=== PATIENT | female | born 1945 | race Caucasian/White ===

== ENCOUNTER 2016-08-12 21:22 | Emergency (ER) | payer MEDICARE, OTHER ==
[~2016-08-12] VITALS: Ht 160 cm; Wt 64.4 kg
[2016-08-12 21:32] VITALS: BP 157/92
== END 2016-08-12 22:18 | disposition home or self-care (01) ==
LOC: ER 21:28
DX: S91.332A Puncture wound without foreign body, left foot, initial encounter (principal); I10 Essential (primary) hypertension; M35.9 Systemic involvement of connective tissue, unspecified; Z88.0 Allergy status to penicillin; Z98.890 Other specified postprocedural states; W22.8XXA Striking against or struck by other objects, initial encounter; Y93.89 Activity, other specified; Y92.89 Other specified places as the place of occurrence of the external cause; Y99.8 Other external cause status
CPT/HCPCS: 99283; A4606; A6402; Z7610

== ENCOUNTER 2021-03-23 13:33 | Inpatient (IN) | payer MEDICARE, OTHER ==
[~2021-03-23] VITALS: Ht 162.6 cm; Wt 59.9 kg
--- NOTE | 2021-03-23 13:33 | NUR ---
[facility] FROM [facility] C/O NEW ONSET AFIB 136 HR. PT STATED SHE HAS HAD HEART PALPITATION SINCE LAST NIGHT. DENIES NAUSEA AND VOMITING. PT HEART RATE IS ELEVATED, MD AWARE. PT ATTACHED TO MONITOR. BREATHING IS EVEN AND UNLABORED.
--- NOTE | 2021-03-23 13:39 | NUR ---
IV ESTABLISH L AC 20G, LABS WERE DRAWN AND COLLECTED. TECH AT BEDSIDE FOR EKG.
[2021-03-23 13:55] LABS: BASOPHILS % (AUTO) 0.1 % (0.0-2.0); EOSINOPHILS % (AUTO) 0.2 % (0.0-6.0); HEMATOCRIT 30 % (33-45); LYMPHOCYTES # (AUTO) 0.8 K/uL (0.8-4.8); LYMPHOCYTES % (AUTO) 12.7 % (20.0-44.0); MEAN CORPUSCULAR HGB CONC 30 g/dl (31.0-36.0); MEAN CORPUSCULAR VOLUME 86 fL (82-100); MONOCYTES # (AUTO) 0.4 K/uL (0.1-1.30); MONOCYTES % (AUTO) 6.5 % (2.0-12.0); NEUTROPHILS # (AUTO) 5.3 K/uL (1.8-8.9); NEUTROPHILS % (AUTO) 80.5 % (43.0-81.0); PLATELET COUNT (AUTO) 287 K/uL (150-450); RED BLOOD CELL COUNT(AUTO) 3.48 MIL/uL (4.0-5.2); WHITE BLOOD COUNT (AUTO) 6.5 K/uL (4.3-11.0)
[2021-03-23 14:02] LABS: CALCIUM, SERUM 8.1 mg/dL (8.5-10.1); CARBON DIOXIDE 19 mmol/L (21-32); CHLORIDE 95 mmol/L (98-107); CREATININE 5.3 mg/dL (0.6-1.3); GLUCOSE 123 mg/dL (74-106); POTASSIUM 6.1 mmol/L (3.5-5.1); SODIUM SERUM 130 mmol/L (136-145); UREA NITROGEN, BLOOD 71 mg/dL (7-18)
[2021-03-23 14:08] LABS: ALANINE AMINOTRANSFERASE 29 U/L (12-78); ALBUMIN 3.2 g/dL (3.4-5.0); ALKALINE PHOSPHATASE 145 U/L (46-116); ASPARTATE AMINOTRANSFERASE 26 U/L (15-37); BILIRUBIN,DIRECT 0.2 mg/dL (0.0-0.2); BILIRUBIN,TOTAL 0.4 mg/dL (0.2-1.0); TOTAL PROTEIN, SERUM 6.2 g/dL (6.4-8.2)
[2021-03-23] MEDS ORDERED: APIX2.5T PO (14:39)
[2021-03-23] MEDS ORDERED: NITR0.4T SL (14:39)
[2021-03-23] MEDS ORDERED: DOCU-141 PO (14:39)
[2021-03-23] MEDS ORDERED: ZOLP5TAB8 PO (14:39)
[2021-03-23] MEDS ORDERED: ACET325T53 PO (14:39)
[2021-03-23] MEDS ORDERED: FAMO-131 PO (14:39)
[2021-03-23] MEDS ORDERED: AMLO5TAB4 PO (14:39)
[2021-03-23] MEDS ORDERED: GABA-532 PO (14:39)
[2021-03-23] MEDS ORDERED: LEVA0.6320 IH (14:39)
[2021-03-23] MEDS ORDERED: CALCIUM CHLORIDE 1,000 MG/10 ML DISP.SYRIN ONE (14:49)
--- NOTE | 2021-03-23 14:50 | NUR ---
MOVE SHEET SUBMITTED AND CALLED FOR BED.
--- NOTE | 2021-03-23 14:57 | NUR ---
COVID ANTIGEN SWAB DONE AND SENT TO THE LAB
[2021-03-23] MEDS ORDERED: CALCIUM CHLORIDE 1,000 MG/10 ML DISP.SYRIN IV ONE (15:00)
[2021-03-23] MEDS ORDERED: ALBUTEROL FS 2.5 MG/3 ML VIAL.NEB NEB ONE (15:00)
--- NOTE | 2021-03-23 15:09 | NUR ---
RESPIRATORY AT BEDSIDE
[2021-03-23] MEDS ORDERED: ALBUTEROL FS 2.5 MG/3 ML VIAL.NEB ONE (15:11)
[2021-03-23 15:27] LABS: ALANINE AMINOTRANSFERASE 28 U/L (12-78); ALBUMIN 3.1 g/dL (3.4-5.0); ALKALINE PHOSPHATASE 141 U/L (46-116); ASPARTATE AMINOTRANSFERASE 20 U/L (15-37); BILIRUBIN,DIRECT 0.1 mg/dL (0.0-0.2); BILIRUBIN,TOTAL 0.3 mg/dL (0.2-1.0); TOTAL PROTEIN, SERUM 6.2 g/dL (6.4-8.2)
--- NOTE | 2021-03-23 15:44 | NUR ---
PT RESTING COMFORTABLY IN BED, EASY TO AROUSE.
--- NOTE | 2021-03-23 16:23 | NUR ---
[facility] CALLED MANAGER LONG TERM CARE PAGED.
--- NOTE | 2021-03-23 16:39 | NUR ---
ASSIGNED TO 120-1
--- NOTE | 2021-03-23 16:49 | NUR ---
REPORT GIVEN TO ROSANNA FOR SARA
--- NOTE | 2021-03-23 17:08 | NUR ---
[facility] CALLED AUTOMOBILE DAMAGE FIELD APPRAISER PAGED.
--- NOTE | 2021-03-23 17:24 | NUR ---
DENISHA IS SON [phone]
[2021-03-23] MEDS ORDERED: LEVALBUTEROL HCL NEB 1.25 MG/0.5 ML VIAL.NEB NEB PRN (18:00)
[2021-03-23] MEDS ORDERED: ACETAMINOPHEN 325 MG TABLET PO PRN (18:00)
[2021-03-23] MEDS ORDERED: NITROGLYCERIN 0.4 MG/TAB BOTTLE SL PRN (18:00)
[2021-03-23] MEDS ORDERED: Z GUARD REMEDY 2 OZ OINT TP PRN (18:00)
--- NOTE | 2021-03-23 18:04 | NUR ---
RN NOTE RECEIVE REPORT FROM ED NURSE. PATIENT IN STABLE CONDITION AT TIME OF TRANSPORT. PATIENT AMBULATE TO BED WITH WALKER. A/O X4. ON 2L OF OXYGEN VIA NC. WILL CONTINUE TO MONITOR.
[2021-03-23] MEDS ORDERED: AMIODARONE 450 MG in IV D5W 241 ML IV PRN (18:30)
[2021-03-23] MEDS ORDERED: AMIODARONE 150 MG in IV D5W 100 ML IV ONE ×2 (18:30→19:30)
--- NOTE | 2021-03-23 19:26 | NUR ---
RN NOTE VITAL SIGNS AT TIME OF TRANSFER: TEMP 96.8, BP 114/78, HR 151, 02 97%, RR 20
--- NOTE | 2021-03-23 19:30 | NUR ---
INFO ANALYST OPENING NOTES: RECEIVED PATIENT FROM DAY SHIFT, PATIENT IN BED, A/O X4, L. AC #20 PATENT AND INTACT, ON NC 2L, TELE MONITOR SHOWS SVT AND A. FIB, 140S, NO SIGNS OF SOB, NO DISTRESS NOTED, TELE MONITOR SHOWS NSR, BED AT LOWEST POSITION, LOCKED AND IN PLACE, SIDE RAILS UP X2, CALL LIGHT WITHIN REACH. WILL CONTINUE TO MONITOR AND ADMINISTER NURSING INTERVENTIONS NECESSARY.
--- NOTE | 2021-03-23 19:52 | NUR ---
RN CLOSING NOTE PATIENT IN STABLE CONDITION WITH NO SIGN OF DISTRESS. HR 138. AMIODORON DRIP WAS STARTED. ON FARMWORKER RICE. PATIENT AMBULATE. ALL SAFETY MEASURE IN PLACE. BED ON LOWEST POSITION WITH HOB ELEVATED. AND 2 SIDE RAIL UP. CALL LIGHT WITHIN REACH. REPORT WAS GIVEN TO LITHOGRAPH OPERATOR NURSE.
[2021-03-23 20:00] VITALS: BP 119/74
[2021-03-23] MEDS: FAMOTIDINE (20 MG) 20 MG TABLET PO SCH (21:58)
--- NOTE | 2021-03-23 22:01 | NUR ---
SOLAR MANUFACTURER'S REPRESENTATIVE NOTES: PATIENT REFUSES PEPCID 0.5 TAB
[2021-03-24] VITALS: BP 93/60
[2021-03-24] MEDS: ONDANSETRON HCL/PF 4 MG/2 ML VIAL IVP PRN (01:03)
[2021-03-24 04:00] VITALS: BP 96/45
--- NOTE | 2021-03-24 06:41 | NUR ---
BORING MILL OPERATOR CLOSING NOTES: PATIENT IN BED, A/O X4, L. AC #20 PATENT AND INTACT, ON 3L NC, SATURATING 100%, NO SIGNS OF DISTRESS, NO SOB, BED AT LOWEST POSITION, BRAKES LOCKED AND IN PLACE, SIDE RAILS UP X2, CALL LIGHT WITHIN REACH. WILL CONTINUE TO MONITOR AND ENDORSE TO DAY SHIFT NURSE.
[2021-03-24] MEDS: ALBUMIN 25% 25 GM in PREMIX 1 EA IV PRN ×2 (07:00→07:01)
[2021-03-24 08:00] VITALS: BP 110/40
--- NOTE | 2021-03-24 08:03 | NUR ---
RN OPENING NOTE RECEIVE REPORT FROM TYPING BOOKKEEPER NURSE. PATIENT IN STABLE CONDITION WITH NO SIGN OF DISTRESS AT TIME OF REPORT. PATIENT IS ON 3L OF OXYGEN VIA NC. O2 SAT OF 98%. CURRENTLY RECEIVING HEMODIALYSIS. ON AMIODARONE AT 0.5MG/MIN. BP 110/59 HR 129. WILL FOLLOW UP MORNING LAB AND DR. NORMAN. PROPER ISOLATION PRECAUTION IN PLACE. ALL SAFETY MEASURE IN PLACE. BED ON LOWEST POSITION WITH HOB ELEVATED. CALL LIGHT WITHIN REACH. WILL CONTINUE TO MONITOR.
[2021-03-24] MEDS: AMLODIPINE BESYLATE 5 MG TABLET PO SCH (08:57)
--- NOTE | 2021-03-24 08:58 | NUR ---
RN NOTE DID NOT GIVE AMLODIPINE. BP 110/40 HR 130. PATIENT IS ON HEMODIALYSIS AND AMIODARONE DRIP.
[2021-03-24] MEDS: APIXABAN 2.5 MG TABLET PO SCH ×2 (09:04→16:56)
[2021-03-24] MEDS: GABAPENTIN 100 MG CAPSULE PO SCH (09:04)
[2021-03-24 12:00] VITALS: BP 104/73
[2021-03-24] MEDS: DILTIAZEM HCL CD 120 MG PO SCH (14:00)
[2021-03-24 15:07] LABS: BASOPHILS % (AUTO) 0.4 % (0.0-2.0); EOSINOPHILS % (AUTO) 0.1 % (0.0-6.0); HEMATOCRIT 26 % (33-45); HEMOGLOBIN 8.3 g/dL (11.5-14.8); LYMPHOCYTES # (AUTO) 0.8 K/uL (0.8-4.8); LYMPHOCYTES % (AUTO) 11.9 % (20.0-44.0); MEAN CORPUSCULAR HGB CONC 32 g/dl (31.0-36.0); MEAN CORPUSCULAR VOLUME 84 fL (82-100); MONOCYTES # (AUTO) 0.5 K/uL (0.1-1.30); MONOCYTES % (AUTO) 6.9 % (2.0-12.0); NEUTROPHILS # (AUTO) 5.6 K/uL (1.8-8.9); NEUTROPHILS % (AUTO) 80.7 % (43.0-81.0); PLATELET COUNT (AUTO) 176 K/uL (150-450); RED BLOOD CELL COUNT(AUTO) 3.15 MIL/uL (4.0-5.2); WHITE BLOOD COUNT (AUTO) 6.9 K/uL (4.3-11.0)
[2021-03-24] MEDS ORDERED: MIDODRINE HCL (5MG) 5 MG TABLET PO SCH (15:30)
[2021-03-24 15:41] LABS: CHOLESTEROL 110 mg/dL (<200); HDL CHOLESTEROL 50 mg/dL (40-60); LDL 54 mg/dL (0-99); TRIGLYCERIDES 44 mg/dL (30-150)
[2021-03-24 16:00] VITALS: BP 92/66
--- NOTE | 2021-03-24 18:28 | NUR ---
RN CLOSING NOTE PATIENT REMAIN IN STABLE CONDITION THROUGH OUT SHIFT. RECEIVING OXYGEN VIA NC AT 2L/MIN WITH O2 SAT OF 98% AND ABOVE. RECEIVE HEMODIALYSIS THIS MORNING WITH 2L TOKEN OUT. AMIODARONE DRIP PROTOCOL HAVE BEEN COMPLETED. HR REMAIN IN 130S. PO MEDICATIONS POST AMIODARONE DRIP WAS ORDERED BY DR. WILMA MCIHAEL. PATIENT CONSUME LESS THAN 25 OF DAILY MEALS. DILTIAZEM WAS NOT GIVEN DUE TO SBP <100. PROPER ISOLATION PRECAUTION PROTOCOL IN PLACE. ALL SAFETY MEASURE IN PLACE. BED ON LOWEST POSITION WITH HOB ELEVATED. WITH 3 SIDE RAIL UP. BED ALARM ON. CALL LIGHT WITHIN REACH. WILL CONTINUE TO MONITOR AND GIVE REPORT TO SKIVER OPERATOR NURSE.
--- NOTE | 2021-03-24 18:32 | NUR ---
RN NOTE CHEMISTRY RESULT PENDING. UNABLE TO GET RESULTS
--- NOTE | 2021-03-24 19:30 | NUR ---
CHILD AND FAMILY SERVICES SPECIALIST OPENING NOTES: RECEIVED PATIENT FROM DAY SHIFT, A/O X4, L. AC #20 PATENT AND INTACT, HD CATCH @ CHEST WALL, TELE MONITOR SHOWS NSR AND SINUS TACHY, PATIENT ON NC 3L, SATURATING 100%, NO SIGNS OF SOB, NO DISTRESS NOTED, BED AT LOWEST POSITION, BRAKES LOCKED AND IN POSITION, SIDE RAILS UP X2, CALL LIGHT WITHIN REACH. WILL CONTINUE TO MONITOR AND ADMINISTER NURSING INTERVENTIONS NECESSARY.
[2021-03-24 20:00] VITALS: BP 89/58
[2021-03-24] MEDS: AMIODARONE HCL 200 MG TABLET PO SCH (21:08)
[2021-03-24] MEDS: FAMOTIDINE (20 MG) 20 MG TABLET PO SCH (21:08)
[2021-03-24 22:16] LABS: CALCIUM, SERUM 7.5 mg/dL (8.5-10.1); CARBON DIOXIDE 20 mmol/L (21-32); CHLORIDE 96 mmol/L (98-107); CREATININE 4.4 mg/dL (0.6-1.3); GLUCOSE 128 mg/dL (74-106); POTASSIUM 5.5 mmol/L (3.5-5.1); SODIUM SERUM 133 mmol/L (136-145); UREA NITROGEN, BLOOD 50 mg/dL (7-18)
[2021-03-24 22:28] LABS: ALBUMIN 3.3 g/dL (3.4-5.0); ALKALINE PHOSPHATASE 122 U/L (46-116); BILIRUBIN,TOTAL 0.6 mg/dL (0.2-1.0); MAGNESIUM 2.3 mg/dL (1.8-2.4); PHOSPHORUS 6.4 mg/dL (2.5-4.9); TOTAL PROTEIN, SERUM 5.8 g/dL (6.4-8.2)
[2021-03-24 22:42] LABS: ALANINE AMINOTRANSFERASE 1261 U/L (12-78); ASPARTATE AMINOTRANSFERASE 1958 U/L (15-37)
[2021-03-25] VITALS: BP 103/68
[2021-03-25 04:00] VITALS: BP 86/56
--- NOTE | 2021-03-25 06:42 | NUR ---
CARBOY FILLER CLOSING NOTES: PATIENT IN BED, A/O X4, TELE MONITOR SHOWS SR, SINUS TACHY, L. AC #20, PATENT AND INTACT, ON 3L NC, NO SIGNS OF SOB, NO DISTRESS NOTED, BED AT LOWEST POSITION, BRAKES LOCKED AND IN PLACE, SIDE RAILS UP X2, CALL LIGHT WITHIN REACH, WILL CONTINUE TO MONITOR AND ENDORSE TO DAY SHIFT NURSE.
[2021-03-25 08:00] VITALS: BP 86/56
[2021-03-25] MEDS: AMLODIPINE BESYLATE 5 MG TABLET PO SCH (09:00)
[2021-03-25] MEDS: AMIODARONE HCL 200 MG TABLET PO SCH (09:15)
[2021-03-25] MEDS: GABAPENTIN 100 MG CAPSULE PO SCH (10:08)
[2021-03-25] MEDS: DILTIAZEM HCL CD 120 MG PO SCH (10:08)
[2021-03-25] MEDS: APIXABAN 2.5 MG TABLET PO SCH ×2 (10:10→17:24)
[2021-03-25 12:00] VITALS: BP 80/56
[2021-03-25] MEDS: MIDODRINE HCL (5MG) 5 MG TABLET PO SCH ×2 (13:52→17:16)
--- NOTE | 2021-03-25 15:31 | NUR ---
RN NOTE 30 MINS PRIOR DIALYSIS AT AROUND 1305 , PT WAS GIVEN PRN MIDODRINE 5MG . HD RN STARTED 1330, PT REMAINS HYPOTENSIVE. NOT IN DISTRESS, NO COMPLAINTS OF CHEST PAIN. PT SINUS TACHY 120. HD WAS STOPPED AT 1315. WILL CONTINUE TO MONITOR.
[2021-03-25 16:00] VITALS: BP 96/50
[2021-03-25] MEDS ORDERED: AMIODARONE HCL 200 MG TABLET PO SCH (18:00)
--- NOTE | 2021-03-25 19:30 | NUR ---
RN OPENING NOTE RECEIVED PATIENT IN BED. A/OX3. ON OXTGEN 3L/MIN VIA NASAL CANNULA. RESPIRATIONS ARE EVEN AND UNLABORED. NO S/ SOB NOTED. NO C/O PAIN AT THIS TIME. TELE MONITOR READS A FLUTTER HR 90S. IN NO APPARENT DISTRESS. IV ACCESS IN LAC#20 LEAKING, RIGHT CHEST WALL HD CATH INTACT. BED IS LOW AND LOCKED, HOB ELEVATED IN SEMI FOWLERS, SIDE RAILS UP X2, CALL LIGHT WITHIN REACH.
--- NOTE | 2021-03-25 19:32 | NUR ---
RN NOTE PT IS NOTED WITH A FLUTTER >100 HR. NO COMPLAINTS OF CHEST PAIN AND SOB, DIZZINESS HEADACHE. AMIODARONE 400MG PO GIVEN. WILL CONTINUE TO MONITOR AND ENDORSED TO NEXT SHIFT RN. BP-95/50.
[2021-03-25 20:00] VITALS: BP 112/46
[2021-03-25] MEDS: FAMOTIDINE (20 MG) 20 MG TABLET PO SCH (21:50)
--- NOTE | 2021-03-25 23:00 | NUR ---
RN NOTE WORK ORDER FOR ROOM AC/HEATING UNIT. ROOM IS VERY COLD CALLED ENGINEERING. NO ANSWER.
[2021-03-25] MEDS: ONDANSETRON HCL/PF 4 MG/2 ML VIAL IVP PRN (23:05)
[2021-03-26] VITALS (47 sets, daily range): BP systolic 69–125; BP diastolic 19–92
--- NOTE | 2021-03-26 01:30 | NUR ---
RN NOTE DERRICK MAN IN ROOM, TRIED TO FIX AC/HEATER. ROOM STILL VERY COLD
--- NOTE | 2021-03-26 03:27 | NUR ---
RN NOTE INFORMED TRAVELING ENGINEER ALIX PERSON NP THAT I RECEIVED PATIENT A FLUTTER HR 90S. PATIENT WAS GIVEN AMINO 400MG TAB AT 1900. AT 2200 HER HR WAS IN THE 50S. AND OF 0100 HER HR HAS SUSTAINED IN THE 40S. RECEIVED ORDER TO HAVE NEXT SHIFT DISCUSS WITH LAST PATTERN GRADER PRIOR TO ADMINISTERING NEXT AMINO DOSE. WILL ENDORSE TO NEXT SHIFT.
[2021-03-26] MEDS ORDERED: IV NS 0.9% 500 ML IV ONE ×5 (04:00→06:00)
--- NOTE | 2021-03-26 04:05 | NUR ---
RT STAT EKG PERFORMED. RESULTS GIVEN TO DIABETES EDUCATOR SHYLA
--- NOTE | 2021-03-26 04:05 | NUR ---
RN NOTE RAZA TAKER DOWN INFORMED OF EKG RESULTS, NS 500 BOLUS IS CURRENTLY RUNNING PER JESSICA ORDER. BP WAS 81/49, 79/44.
--- NOTE | 2021-03-26 04:45 | NUR ---
RN NOTE INFORMED RAZA MANUGRAPHER POST 500CC BOLUS COLT 82/42 HR 40. RECEIVED ORDER FOR ANOTHER 500CC BOLUS NS. ORDER BEING CARRIED OUT.
--- NOTE | 2021-03-26 05:31 | NUR ---
RN NOTE INFORMED RAZA BP 85/45 HR 44. RECEIVED ORDER FOR ANOTHER 500CC BOLUS NS. ORDER BEING CARRIED OUT.
--- NOTE | 2021-03-26 06:12 | NUR ---
RN NOTE RAZA INFORMED OF NEW VITALS AFTER 3RD 500CC NS BOLUS. 93/53 HR 57. NO NEW ORDERS RECEIVED.
--- NOTE | 2021-03-26 07:29 | NUR ---
RN NOTE PATIENT OBSERVE AWAKE IN BED, ON O2 VIA NC @ 6LPM O2 SAT OF 98% TOLERATING WELL, BREATHING EVEN AND UNLABORED, ON RENAL DIET, WITH HD CATH NOTED ON RIGHT CHEST, WITH LEFT HAND GAUGE 22 AND RIGHT FORE ARM G 22, ON BAIRHUGGER ON HIGH FOR HYPOTHERMIA PATIENT TOLERATING WELL AND COMFORTABLE. SAFETY MEASURE OBSERVED, BED WHEELS LOCK, CALL LIGHT WITHIN REACH, WILL CONTINUE TO MONITOR.
--- NOTE | 2021-03-26 07:30 | NUR ---
RN CLOSING NOTE PATIENT RESTING IN BED. A/OX3. ON OXYGEN 6L/MIN VIA NASAL CANNULA D/T PATIENT STATES SHE CANT BREATH. O2 SAT IS WNL 100 BUT INCREASED. NO C/O PAIN BUT DOES STATE SHE FEELS DIZZY. BP WAS LOW LAST NIGHT, 3 500CC BOLUS GIVEN. BP IMPROVED. HR WAS RENATE IN THE 40S LAST NIGHT DOWN TO 39. HR CURRENTLY IN THE 70S NOW. IV ACCESS CHANGED TO LEFT HAND #22 AND RFA#22. RIGHT CHEST WALL HD CATH REMAINS INTACT. PATIENT IS VERY COLD D/T HEATER NOT WORKING LAST NIGHT, BEAR HUGGER ON PATIENT. BED REMAINS LOW AND LOCKED, HOB ELEVATED IN SEMI FOWLERS, SIDE RAILS UP X2, CALL LIGHT WITHIN REACH. WILL ENDORSE TO ONCOMING SHIFT.
--- NOTE | 2021-03-26 07:30 | NUR ---
MISBAH NOTE ON TELE MONITOR SR AT THIS TIME HR OF 78 Addendum: 03/26/21 at 0812 by GERA BARKLEY RN MISBAH NOTE ON TELE MONITOR A-FLUTTER AT THIS TIME HR OF 78, NO COMPLAINS OF CHEST PAIN AT THIS TIME.
--- NOTE | 2021-03-26 08:00 | NUR ---
RN NOTE NOTIFIED DR. WILMA MICHAEL REGARDING PATIENT POTASSIUM OF 6.3, PER MD CONTACT RENAL FOR HD. NOTIFIED NEPHRO PER DR. WILMA MICHAEL.
[2021-03-26 08:11] LABS: ALANINE AMINOTRANSFERASE 1509 U/L (12-78); ALBUMIN 2.8 g/dL (3.4-5.0); ALKALINE PHOSPHATASE 124 U/L (46-116); ASPARTATE AMINOTRANSFERASE 972 U/L (15-37); BILIRUBIN,TOTAL 0.7 mg/dL (0.2-1.0); CALCIUM, SERUM 6.8 mg/dL (8.5-10.1); CHLORIDE 96 mmol/L (98-107); CREATININE 5.4 mg/dL (0.6-1.3); GLUCOSE 102 mg/dL (74-106); SODIUM SERUM 129 mmol/L (136-145); TOTAL PROTEIN, SERUM 5.1 g/dL (6.4-8.2); UREA NITROGEN, BLOOD 69 mg/dL (7-18)
[2021-03-26 08:21] LABS: CARBON DIOXIDE 10 mmol/L (21-32)
[2021-03-26 08:23] LABS: POTASSIUM 6.3 mmol/L (3.5-5.1)
[2021-03-26] MEDS: GABAPENTIN 100 MG CAPSULE PO SCH (08:37)
[2021-03-26] MEDS: MIDODRINE HCL (5MG) 5 MG TABLET PO SCH ×3 (08:37→17:00)
[2021-03-26] MEDS: APIXABAN 2.5 MG TABLET PO SCH ×2 (08:45→17:45)
[2021-03-26] MEDS ORDERED: DoBUTamine 500 MG/250 ML PIGGYBACK IV ONE (09:00)
[2021-03-26] MEDS ORDERED: DOBUTamine 500 MG in IV D5W 210 ML IV PRN ×6 (10:00→12:30)
--- NOTE | 2021-03-26 10:06 | NUR ---
RN NOTE PATIENT STARTED ON DOBUTAMINE 5UG/KG/MIN , NO TITRATION FOR HYPOTENSION,PER DR. HERRERA
--- NOTE | 2021-03-26 11:25 | NUR ---
AWS SOFTWARE DEVELOPMENT ENGINEER RECEIVED PT FROM TELE 1ST FLOOR. PT AWAKE, FOLLOWING COMMANDS. REMAINS HYPOTHERMIC, ON NEHAL HUGGER. HYPOTENSIVE, CONTINUING DOBUTAMINE AT FIXED DOSE 5 MCG/KG/MIN. WILL REQUEST PRESSOR IF HYPOTENSION CONTINUES, SCHEDULED FOR DIALYSIS TODAY. WILL REQUEST PICC LINE PLACEMENT.
--- NOTE | 2021-03-26 11:25 | NUR ---
RN NOTE PATIENT TRANSFERRED TO ICU ROOM 262, REPORT GIVEN TO PERLA CRAWLEY.
[2021-03-26 11:26] LABS: BASOPHILS % (AUTO) 0.3 % (0.0-2.0); EOSINOPHILS % (AUTO) 0.1 % (0.0-6.0); HEMATOCRIT 29 % (33-45); HEMOGLOBIN 8.6 g/dL (11.5-14.8); LYMPHOCYTES # (AUTO) 0.5 K/uL (0.8-4.8); LYMPHOCYTES % (AUTO) 5.1 % (20.0-44.0); MEAN CORPUSCULAR HGB CONC 30 g/dl (31.0-36.0); MEAN CORPUSCULAR VOLUME 88 fL (82-100); MONOCYTES # (AUTO) 0.6 K/uL (0.1-1.30); MONOCYTES % (AUTO) 5.9 % (2.0-12.0); NEUTROPHILS # (AUTO) 9.3 K/uL (1.8-8.9); NEUTROPHILS % (AUTO) 88.6 % (43.0-81.0); PLATELET COUNT (AUTO) 257 K/uL (150-450); RED BLOOD CELL COUNT(AUTO) 3.26 MIL/uL (4.0-5.2); WHITE BLOOD COUNT (AUTO) 10.5 K/uL (4.3-11.0)
[2021-03-26] MEDS ORDERED: ALBUMIN 25% 25 GM in PREMIX 1 EA IV PRN (11:30)
[2021-03-26 12:30] LABS: LYMPHOCYTES % (MANUAL) 6 % (16-48); MONOCYTES % (MANUAL) 10 % (0-11.0); NEUTROPHILS % (MANUAL) 84 (42-76)
[2021-03-26] MEDS: DOBUTamine 500 MG in IV D5W 210 ML IV PRN (12:30)
[2021-03-26] MEDS: PHENYLEPHRINE 100 MG in IV NS 0.9% 240 ML IV PRN (12:44)
[2021-03-26] MEDS: ALBUMIN 25% 25 GM in PREMIX 1 EA IV PRN (13:22)
--- NOTE | 2021-03-26 19:30 | NUR ---
RN NOTES PT FOUND SEMI FOWLERS DISPLAYING NO S/S OF DISTRESS, PT ENDORSES NO PAIN AND IS BREATHING EVEN AND UNLABORED ON 2L O2 NC. PT BEING TRACKED BY BED SIDE MONITOR. R FA 20G PATIENT AND INTACT, L UA PICC PATIENT AND INTACT, R CHEST WALL HD CATH CLEAN AND DRY. THERMAL BLANKET APPLIED. SBAR AND REPORT GIVEN TO MAT SEWER RN, ALL QUESTIONS ANSWERED. SAFETY MEASURES IN PLACE, BED LOCKED AND IN LOWEST POSITION, SIDE RAILS UPX2, CALL LIGHT WITHIN REACH, PT INSTRUCTED TO CALL FOR ASSISTANCE. PT ENDORSED IN STABLE CONDITION FOR SARA.
[2021-03-26] MEDS: FAMOTIDINE (20 MG) 20 MG TABLET PO SCH (22:22)
[2021-03-27] VITALS (95 sets, daily range): BP systolic 80–134; BP diastolic 27–74
[2021-03-27 04:55] LABS: BASOPHILS % (AUTO) 0.1 % (0.0-2.0); EOSINOPHILS % (AUTO) 0.1 % (0.0-6.0); HEMATOCRIT 22 % (33-45); HEMOGLOBIN 7.2 g/dL (11.5-14.8); LYMPHOCYTES # (AUTO) 0.5 K/uL (0.8-4.8); LYMPHOCYTES % (AUTO) 8.9 % (20.0-44.0); MEAN CORPUSCULAR HGB CONC 32 g/dl (31.0-36.0); MEAN CORPUSCULAR VOLUME 83 fL (82-100); MONOCYTES # (AUTO) 0.3 K/uL (0.1-1.30); MONOCYTES % (AUTO) 5.7 % (2.0-12.0); NEUTROPHILS # (AUTO) 5.2 K/uL (1.8-8.9); NEUTROPHILS % (AUTO) 85.2 % (43.0-81.0); PLATELET COUNT (AUTO) 131 K/uL (150-450); WHITE BLOOD COUNT (AUTO) 6.1 K/uL (4.3-11.0)
[2021-03-27 05:15] LABS: ALANINE AMINOTRANSFERASE 1873 U/L (12-78); ALBUMIN 3.1 g/dL (3.4-5.0); ALKALINE PHOSPHATASE 116 U/L (46-116); ASPARTATE AMINOTRANSFERASE 1238 U/L (15-37); BILIRUBIN,TOTAL 0.6 mg/dL (0.2-1.0); CALCIUM, SERUM 7.4 mg/dL (8.5-10.1); CARBON DIOXIDE 25 mmol/L (21-32); CHLORIDE 97 mmol/L (98-107); CREATININE 3.7 mg/dL (0.6-1.3); GLUCOSE 92 mg/dL (74-106); MAGNESIUM 2.1 mg/dL (1.8-2.4); POTASSIUM 4.9 mmol/L (3.5-5.1); SODIUM SERUM 131 mmol/L (136-145); TOTAL PROTEIN, SERUM 5.1 g/dL (6.4-8.2); UREA NITROGEN, BLOOD 37 mg/dL (7-18)
--- NOTE | 2021-03-27 07:45 | NUR ---
ICU/RN PT IS ON 3L N/C SAT O2-95%.HAS COUGH .AWAKE .ALERT.ON DOBUTAMINE DRIP AND NEOSYNEPHRINE DRIP.LEFT UPPER ARM PICC LINE.HR-130 BPM A-FLUTER.ON HD ,HAS ESRD.RIGHT CHEST HD CATH.MULTIPLY BRUISES NOTED ON BUE.LABS REVIEW.CONTINUE MONITORING.
[2021-03-27] MEDS: DOBUTamine 500 MG in IV D5W 210 ML IV PRN (08:38)
[2021-03-27] MEDS: GABAPENTIN 100 MG CAPSULE PO SCH (08:42)
[2021-03-27] MEDS: MIDODRINE HCL (5MG) 5 MG TABLET PO SCH ×3 (08:42→16:44)
[2021-03-27] MEDS: APIXABAN 2.5 MG TABLET PO SCH ×2 (08:44→16:45)
--- NOTE | 2021-03-27 09:15 | NUR ---
ICU/RN DUE MEDS ARE GIVEN ORDERED.
--- NOTE | 2021-03-27 18:00 | NUR ---
icu/rn pm care provided.due meds are given as ordered.pt is sitting on the chair.eats 50% from her meal tray.hr-133 bpm.on dobutamine drip,and neosynephrine drip. afebrile.no pain reported at this time.
[2021-03-27] MEDS: PHENYLEPHRINE 100 MG in IV NS 0.9% 240 ML IV PRN (18:47)
[2021-03-27] MEDS ORDERED: EPOETIN ALFA (10,000 UNIT) 10,000 UNIT/ML VIAL IV SCH (19:00)
--- NOTE | 2021-03-27 19:05 | NUR ---
RECEIVED PT SITTING ON CHAIR AWAKE AA/O X4 AZERI AND SALVADOREAN SPEAKING ABLE TO VERBALIZED NEEDS, BEDSIDE MONITOR READS AFIB HR 130'S ON DOBUTAMINE DRIP 5 MCG/KG/MIN NO TITRATION NEEDED PER CARDIOLOGY, ALSO ON NEOSYNPHRINE DRIP @ 0.5 MCG/KG/MIN TO TITRATE PER PROTOCOL ON 3L O2 VIA NC SPO2 95-97 % NO RESPIRATORY DISTRESS NOTED, PT IS EATING AND WATCHING TV CALL LIGHT IS WITHIN REACH WILL CONT TO MONITOR
[2021-03-27] MEDS: FAMOTIDINE (20 MG) 20 MG TABLET PO SCH (21:42)
[2021-03-27] MEDS: ZOLPIDEM TARTRATE 5 MG TABLET PO PRN (21:42)
[2021-03-28] VITALS (97 sets, daily range): BP systolic 76–141; BP diastolic 35–106
[2021-03-28 04:46] LABS: BASOPHILS % (AUTO) 0.1 % (0.0-2.0); EOSINOPHILS % (AUTO) 0.4 % (0.0-6.0); HEMATOCRIT 22 % (33-45); LYMPHOCYTES # (AUTO) 0.6 K/uL (0.8-4.8); LYMPHOCYTES % (AUTO) 9.7 % (20.0-44.0); MEAN CORPUSCULAR HGB CONC 31 g/dl (31.0-36.0); MEAN CORPUSCULAR VOLUME 84 fL (82-100); MONOCYTES # (AUTO) 0.4 K/uL (0.1-1.30); MONOCYTES % (AUTO) 5.9 % (2.0-12.0); NEUTROPHILS # (AUTO) 5.3 K/uL (1.8-8.9); NEUTROPHILS % (AUTO) 83.9 % (43.0-81.0); PLATELET COUNT (AUTO) 127 K/uL (150-450); RED BLOOD CELL COUNT(AUTO) 2.65 MIL/uL (4.0-5.2); WHITE BLOOD COUNT (AUTO) 6.3 K/uL (4.3-11.0)
[2021-03-28 05:44] LABS: ALANINE AMINOTRANSFERASE 1621 U/L (12-78); ALBUMIN 3.1 g/dL (3.4-5.0); ALKALINE PHOSPHATASE 120 U/L (46-116); ASPARTATE AMINOTRANSFERASE 573 U/L (15-37); BILIRUBIN,TOTAL 0.4 mg/dL (0.2-1.0); CALCIUM, SERUM 6.9 mg/dL (8.5-10.1); CARBON DIOXIDE 25 mmol/L (21-32); CHLORIDE 93 mmol/L (98-107); CREATININE 4.6 mg/dL (0.6-1.3); GLUCOSE 122 mg/dL (74-106); MAGNESIUM 2.1 mg/dL (1.8-2.4); PHOSPHORUS 5.3 mg/dL (2.5-4.9); SODIUM SERUM 128 mmol/L (136-145); TOTAL PROTEIN, SERUM 5.4 g/dL (6.4-8.2); UREA NITROGEN, BLOOD 49 mg/dL (7-18)
[2021-03-28 05:47] LABS: IRON, SERUM 12 ug/dl (50-175); TOTAL IRON BINDING CAPACITY 273 ug/dl (250-450)
[2021-03-28 06:32] LABS: HEMOGLOBIN 6.9 g/dL (11.5-14.8)
--- NOTE | 2021-03-28 06:40 | NUR ---
REPORTED TO HOSPITALIST DENISHA NOLAND MOLD SPRAYER THAT HGB 6.9 AND HCT IS 22 WITH ORDER TO TRANSFUSE 1 PRBC WHILE ON HD NOTED AND CARRIED OUT
--- NOTE | 2021-03-28 07:15 | NUR ---
RN NOTES RECEIVED PT RESTING IN BED. A/O X3-4. INDIAN AND CITIZEN OF [place] SPEAKING. BEDSIDE MONITOR READS AFIB HR @130'S. ON DOBUTAMINE DRIP @5MCG/KG/MIN, NO TITRATION NEEDED PER CARDIOLOGY. ON SARAH DRIP @0.5 MCG/KG/MIN. ON 3L O2 VIA NC, SATURATING @95% AT THIS TIME. NO SOB OR ANY S/S OF RESPIRATORY DISTRESS NOTED. OLIVIER PICC LINE AND L HAND #22 BOTH INTACT, PATENT AND FLUSHED. RCW HD CATH NOTED. NO BLEEDING, DRESSINGS C/D/I. SAFETY MEASURES IN PLACE. CALL LIGHT WITHIN REACH. BED LOCKED AND IN LOWEST POSITION WITH SIDE RAILS UP X2. WILL CONTINUE TO MONITOR.
[2021-03-28] MEDS: CALCIUM ACETATE 667 MG CAP/TAB PO SCH ×3 (07:56→17:31)
[2021-03-28] MEDS: GABAPENTIN 100 MG CAPSULE PO SCH (08:59)
[2021-03-28] MEDS: MIDODRINE HCL (5MG) 5 MG TABLET PO SCH ×3 (09:00→17:31)
[2021-03-28] MEDS: APIXABAN 2.5 MG TABLET PO SCH ×2 (09:01→17:33)
[2021-03-28] MEDS: DOBUTamine 500 MG in IV D5W 210 ML IV PRN (10:03)
--- NOTE | 2021-03-28 13:00 | NUR ---
RN NOTES CALLED LAB REGARDING TYPE AND SCREEN AND BLOOD WHILE ON HD, NO RESULTS STILL.
[2021-03-28] MEDS: NEPRO VAN 237 ML CAN PO SCH (13:31)
[2021-03-28] MEDS: EPOETIN ALFA (10,000 UNIT) 10,000 UNIT/ML VIAL IV PRN (13:47)
[2021-03-28] MEDS ORDERED: SOD FERRIC GLUC 125 MG in IV NS 0.9% 100 ML IV SCH (14:00)
[2021-03-28] MEDS ORDERED: IRON SUCROSE COMPLEX 100 MG in IV NS 0.9% 100 ML IV SCH (14:00)
[2021-03-28 18:25] LABS: EOSINOPHILS % (MANUAL) 2 % (0-4); LYMPHOCYTES % (MANUAL) 11 % (16-48); MONOCYTES % (MANUAL) 7 % (0-11.0); NEUTROPHILS % (MANUAL) 80 (42-76)
--- NOTE | 2021-03-28 18:30 | NUR ---
RN NOTES CALLED LAB FOR TYPE AND SCREEN RESULT AND BLOOD. STILL NO RESULT. MADE AWARE.
--- NOTE | 2021-03-28 19:03 | NUR ---
RECEIVED PT SITTING ON CHAIR AWAKE AA/O X4 UPPER SORBIAN AND CITIZEN OF [place] AND [place] SPEAKING ABLE TO VERBALIZED NEEDS, BEDSIDE MONITOR READS AFIB HR 146'S ON DOBUTAMINE DRIP 5 MCG/KG/MIN NO TITRATION NEEDED PER CARDIOLOGY, ALSO ON NEOSYNPHRINE DRIP @ 0.5 MCG/KG/MIN TO TITRATE PER PROTOCOL ON 3L O2 VIA NC SPO2 95-97 % NO RESPIRATORY DISTRESS NOTED, PT IS EATING AND WATCHING TV CALL LIGHT IS WITHIN REACH WILL CONT TO MONITOR
--- NOTE | 2021-03-28 19:11 | NUR ---
RN NOTES PT RESTING IN CHAIR. NO SIGNIFICANT CHANGES THROUGHOUT THE SHIFT. NO SOB OR ANY RESPIRATORY DISTRESS NOTED. ALL DUE MEDS GIVEN. NEEDS ATTENDED. KEPT CLEAN AND COMFORTABLE. HD OUTPUT 1.3L. ENDORSED TO NIGHT RN FOR SARA.
--- NOTE | 2021-03-28 19:46 | NUR ---
REPORTED TO DR HERRERA THAT PT HR IS ON 146 DESPITE THE DOBUTAMINE DRIP WITH ORDER OF AMIODARONE 200 MG PO TID NOTED AND CARRIED OUT
[2021-03-28] MEDS: AMIODARONE HCL 200 MG TABLET PO SCH (20:12)
--- NOTE | 2021-03-28 21:03 | NUR ---
GOT A CALL FROM THE BLOOD BANK AND THEY INFORM ME THAT THE PT PRBC IS NOT YET AVAILABLE DUE TO SOME PROBLEM WITH PT BLOOD TYPE AND SCREEN, AM ALREADY AWARE PER AM SHIFT NURSE
[2021-03-28 21:20] LABS: HEMOGLOBIN 6.8 g/dL (11.5-14.8)
[2021-03-28] MEDS: FAMOTIDINE (20 MG) 20 MG TABLET PO SCH (22:08)
[2021-03-29] VITALS (97 sets, daily range): BP systolic 68–123; BP diastolic 42–78
--- NOTE | 2021-03-29 00:26 | NUR ---
PT SITTING ON CHAIR DOZING INTERMITTENTLY, ASK PT IF SHE WANT TO LAY DOWN ON BED AND SLEEP THEIR BUT PT IS REFUSING SHE SAYS THAT ITS HARD TO HER TO LAY DOWN ON BED IT LIKE SHE HAVE DIFFICULTY BREATHIN AND SHE WANTS JUST TO SIT DOWN, AND SHE WILL CALL US IF SHE WANT TO GO TO THE BED, PT STILL ON SINUS TACHY 140'S ON DOBUTAMINE DRIP @ 5MCG/KG/MIN AND SARAH @ 5MCG/KG/MIN CALL LIGHT WITHIN REACH WILL CONT TO MONITOR
[2021-03-29] MEDS: ZOLPIDEM TARTRATE 5 MG TABLET PO PRN ×2 (00:55→21:29)
--- NOTE | 2021-03-29 01:00 | NUR ---
ASSISTED PT TO THE BED AFTER SHE TAKE THE AMBIEN, STILL ON AFIB HR 140'S WILL CONT TO MONITOR
[2021-03-29 05:15] LABS: BASOPHILS % (AUTO) 0.1 % (0.0-2.0); EOSINOPHILS % (AUTO) 0.5 % (0.0-6.0); HEMATOCRIT 22 % (33-45); LYMPHOCYTES # (AUTO) 0.5 K/uL (0.8-4.8); LYMPHOCYTES % (AUTO) 8.5 % (20.0-44.0); MEAN CORPUSCULAR HGB CONC 32 g/dl (31.0-36.0); MEAN CORPUSCULAR VOLUME 84 fL (82-100); MONOCYTES # (AUTO) 0.4 K/uL (0.1-1.30); MONOCYTES % (AUTO) 7.1 % (2.0-12.0); NEUTROPHILS % (AUTO) 83.8 % (43.0-81.0); PLATELET COUNT (AUTO) 106 K/uL (150-450); RED BLOOD CELL COUNT(AUTO) 2.66 MIL/uL (4.0-5.2); WHITE BLOOD COUNT (AUTO) 5.9 K/uL (4.3-11.0)
[2021-03-29 05:44] LABS: ALANINE AMINOTRANSFERASE 1316 U/L (12-78); ALBUMIN 3.2 g/dL (3.4-5.0); ALKALINE PHOSPHATASE 119 U/L (46-116); ASPARTATE AMINOTRANSFERASE 299 U/L (15-37); BILIRUBIN,TOTAL 0.6 mg/dL (0.2-1.0); CALCIUM, SERUM 6.8 mg/dL (8.5-10.1); CARBON DIOXIDE 24 mmol/L (21-32); CHLORIDE 94 mmol/L (98-107); CREATININE 3.5 mg/dL (0.6-1.3); GLUCOSE 90 mg/dL (74-106); PHOSPHORUS 4.2 mg/dL (2.5-4.9); POTASSIUM 5.2 mmol/L (3.5-5.1); SODIUM SERUM 130 mmol/L (136-145); TOTAL PROTEIN, SERUM 5.7 g/dL (6.4-8.2); UREA NITROGEN, BLOOD 37 mg/dL (7-18)
--- NOTE | 2021-03-29 07:15 | NUR ---
RN NOTES RECEIVED PT RESTING IN BED. A/O X3-4. ECUADOREAN AND INDIAN SPEAKING. BEDSIDE MONITOR READS AFIB HR @130'S. ON DOBUTAMINE DRIP @5MCG/KG/MIN, NO TITRATION NEEDED PER CARDIOLOGY. ON SARAH DRIP @0.5 MCG/KG/MIN. ON 3L O2 VIA NC, SATURATING @97% AT THIS TIME. NO SOB OR ANY S/S OF RESPIRATORY DISTRESS NOTED. OLIVIER PICC LINE AND L HAND #22 BOTH INTACT, PATENT AND FLUSHED. RCW HD CATH NOTED. NO BLEEDING, DRESSINGS C/D/I. SAFETY MEASURES IN PLACE. CALL LIGHT WITHIN REACH. BED LOCKED AND IN LOWEST POSITION WITH SIDE RAILS UP X2. WILL CONTINUE TO MONITOR.
[2021-03-29] MEDS: NEPRO VAN 237 ML CAN PO SCH (07:47)
[2021-03-29] MEDS: GABAPENTIN 100 MG CAPSULE PO SCH (08:13)
[2021-03-29] MEDS: CALCIUM ACETATE 667 MG CAP/TAB PO SCH ×3 (08:13→17:32)
[2021-03-29] MEDS: AMIODARONE HCL 200 MG TABLET PO SCH ×3 (08:14→17:32)
[2021-03-29] MEDS: MIDODRINE HCL (5MG) 5 MG TABLET PO SCH ×3 (08:14→17:33)
[2021-03-29] MEDS: APIXABAN 2.5 MG TABLET PO SCH ×2 (08:15→17:33)
[2021-03-29] MEDS: DOBUTamine 500 MG in IV D5W 210 ML IV PRN (08:45)
[2021-03-29] MEDS ORDERED: DOBUTamine 500 MG in IV D5W 210 ML IV PRN (12:30)
[2021-03-29] MEDS: SOD FERRIC GLUC 125 MG in IV NS 0.9% 100 ML IV SCH (14:24)
[2021-03-29] MEDS: PHENYLEPHRINE 100 MG in IV NS 0.9% 240 ML IV PRN (17:00)
--- NOTE | 2021-03-29 19:25 | NUR ---
RN NOTES PT RESTING IN CHAIR. NO SIGNIFICANT CHANGES THROUGHOUT THE SHIFT. NO SOB OR ANY RESPIRATORY DISTRESS NOTED. ALL DUE MEDS GIVEN. NEEDS ATTENDED. KEPT CLEAN AND COMFORTABLE. ENDORSED TO NIGHT RN FOR SARA.
--- NOTE | 2021-03-29 19:30 | NUR ---
RN NOTES RECEIVED PT FOR CONTINUITY OF CARE. PATIENT A/OX3-4 IN NO S/SX OF ACUTE DISTRESS AT THIS TIME; CURRENTLY ON 3L OF 02 VIA NC; WITH 02 SAT >95% AT THIS TIME. WILL ENSURE SAFETY MEASURES WITHIN THE SHIFT. PATIENT BED ALARM IS ON. HEAD OF BED ELEVATED. BED IS LOCKED, IN LOWEST POSITION AND SIDE RAILS UP. CALL LIGHT WITHIN REACH OF THE PATIENT. APPLICABLE ISOLATION PRECAUTIONS IN PLACE. WILL CONTINUE TO MONITOR AND REASSESS FOR ANY CHANGES AND WILL CARRY OUT ANY ONGOING AND ACTIVE MD ORDER.
[2021-03-29] MEDS: FAMOTIDINE (20 MG) 20 MG TABLET PO SCH (21:28)
[2021-03-30] VITALS (97 sets, daily range): BP systolic 74–142; BP diastolic 31–93
[2021-03-30 04:46] LABS: BASOPHILS % (AUTO) 0.6 % (0.0-2.0); EOSINOPHILS % (AUTO) 0.9 % (0.0-6.0); HEMATOCRIT 22 % (33-45); LYMPHOCYTES # (AUTO) 0.6 K/uL (0.8-4.8); LYMPHOCYTES % (AUTO) 9.9 % (20.0-44.0); MEAN CORPUSCULAR HGB CONC 32 g/dl (31.0-36.0); MEAN CORPUSCULAR VOLUME 85 fL (82-100); MONOCYTES # (AUTO) 0.5 K/uL (0.1-1.30); MONOCYTES % (AUTO) 8.7 % (2.0-12.0); NEUTROPHILS # (AUTO) 4.6 K/uL (1.8-8.9); NEUTROPHILS % (AUTO) 79.9 % (43.0-81.0); PLATELET COUNT (AUTO) 102 K/uL (150-450); RED BLOOD CELL COUNT(AUTO) 2.54 MIL/uL (4.0-5.2); WHITE BLOOD COUNT (AUTO) 5.8 K/uL (4.3-11.0)
[2021-03-30 05:19] LABS: ALANINE AMINOTRANSFERASE 835 U/L (12-78); ALBUMIN 2.9 g/dL (3.4-5.0); ALKALINE PHOSPHATASE 103 U/L (46-116); ASPARTATE AMINOTRANSFERASE 129 U/L (15-37); BILIRUBIN,TOTAL 0.6 mg/dL (0.2-1.0); CALCIUM, SERUM 6.8 mg/dL (8.5-10.1); CARBON DIOXIDE 23 mmol/L (21-32); CHLORIDE 92 mmol/L (98-107); CREATININE 4.4 mg/dL (0.6-1.3); GLUCOSE 133 mg/dL (74-106); MAGNESIUM 1.9 mg/dL (1.8-2.4); PHOSPHORUS 4.6 mg/dL (2.5-4.9); POTASSIUM 5.7 mmol/L (3.5-5.1); SODIUM SERUM 126 mmol/L (136-145); TOTAL PROTEIN, SERUM 5.5 g/dL (6.4-8.2); UREA NITROGEN, BLOOD 49 mg/dL (7-18)
[2021-03-30 05:42] LABS: HEMOGLOBIN 6.8 g/dL (11.5-14.8)
--- NOTE | 2021-03-30 05:53 | NUR ---
RN NOTES RECEIVED CRITICAL LAB RESULT- H&H @ 6.8 & 22. ENTERPRISE APPLICATIONS MANAGER MADE AWARE. WILL NOTIFY ANGELA WINSTON (SCOTTIE WHITAKER NP) Addendum: 03/30/21 at 0609 by PITA ISLAS RN RECEIVED ORDER FROM ANGELA WINSTON ( SCOTTIE WHITAKER NP) REPEAT H&H STAT. ENTERPRISE APPLICATIONS MANAGER MADE AWARE. WILL CARRY OUT ORDER
--- NOTE | 2021-03-30 07:00 | NUR ---
RN CLOSING NOTE: PATIENT REMAINS IN ROOM IN NO SIGNS OF RESPIRATORY DISTRESS, PATIENT STILL ON 3L OF 02 VIA NC;TOLERATING WELL SATURATING @ >95% SP02. SAFETY MEASURES IMPLEMENTED, BED IN LOWEST POSITION, LOCKED, SIDE RAILS UP, CALL LIGHT WITHIN REACH. ALL NEEDS AND ORDERS ADDRESSED DURING THE SHIFT. IV ACCESS MAINTAINED INTACT, SECURED AND FLUSHING WELL. ALL DUE MEDS GIVEN ORDERED & SCHEDULED ; PATIENT TOLERATED WELL. STILL WITH ONGOING DRIP FOLLOWS: DOBUTAMINE DRIP @5MCG/KG/MIN (9.2MLS/HR), SARAH DRIP @0.5MCG/KG/MIN (4.6MLS/HR)BOTH RUNNING, MONITORED AND ADJUSTED PER PROTOCOL PATIENT KEPT CLEAN AND COMFORTABLE WITHIN THE SHIFT. PATIENT ENDORSED TO INCOMING SHIFT RN WITH STABLE VITAL SIGN AND FOR CONTINUITY OF CARE.
[2021-03-30] MEDS: DOBUTamine 500 MG in IV D5W 210 ML IV PRN (07:06)
--- NOTE | 2021-03-30 07:30 | NUR ---
RN NOTES PT FOUND SEMI FOWLERS DISPLAYING NO S/S OF DISTRESS, PT ENDORSES NO PAIN AND IS BREATHING EVEN AND UNLABORED ON 4L O2 NC. PT REPORTS NO DIZZINESS, SOB, SYNCOPE OR CHEST PAIN. L UA PICC IS PATIENT AND INTACT. VSS, RN WILL MONITOR AND TREAT THROUGHOUT SHIFT. SAFETY MEASURES IN PLACE, BED LOCKED AND IN LOWEST POSITION, SIDE RAILS UPX2, CALL LIGHT WITHIN REACH, PT INSTRUCTED TO CALL FOR ASSISTANCE.
[2021-03-30] MEDS: NEPRO VAN 237 ML CAN PO SCH (07:41)
[2021-03-30 08:07] LABS: HEMOGLOBIN 6.6 g/dL (11.5-14.8)
--- NOTE | 2021-03-30 08:09 | NUR ---
CRITICAL LAB LAB CALLED AND INFORMED RN THAT PT HGB IS 6.6. RN ALREADY SPOKE TO DOORKEEPER AND INFORMED MD OF PREVIOUS FINDING. MD VERBALIZED PUTTING IN ORDERS
[2021-03-30] MEDS: CALCIUM ACETATE 667 MG CAP/TAB PO SCH ×3 (09:04→17:24)
[2021-03-30] MEDS: MIDODRINE HCL (5MG) 5 MG TABLET PO SCH ×3 (09:05→17:24)
[2021-03-30] MEDS: GABAPENTIN 100 MG CAPSULE PO SCH (09:05)
[2021-03-30] MEDS: AMIODARONE HCL 200 MG TABLET PO SCH ×3 (09:05→17:26)
[2021-03-30] MEDS: APIXABAN 2.5 MG TABLET PO SCH ×2 (09:06→17:26)
[2021-03-30] MEDS: ALBUMIN 25% 25 GM in PREMIX 1 EA IV PRN (10:38)
[2021-03-30 13:28] LABS: LYMPHOCYTES % (MANUAL) 11 % (16-48); MONOCYTES % (MANUAL) 7 % (0-11.0); NEUTROPHILS % (MANUAL) 82 (42-76)
[2021-03-30] MEDS: EPOETIN ALFA (10,000 UNIT) 10,000 UNIT/ML VIAL IV PRN (13:56)
[2021-03-30] MEDS: SOD FERRIC GLUC 125 MG in IV NS 0.9% 100 ML IV SCH (13:56)
--- NOTE | 2021-03-30 19:26 | NUR ---
RN NOTES PT FOUND SITTING IN A CHAIR NO S/S OF DISTRESS, PT ENDORSES NO PAIN AND IS BREATHING EVEN AND UNLABORED ON 4L O2 NC. BLOOD TRANSFUSION ENDORSED TO SILK SCREEN CUTTER.. L UA PICC IS PATIENT AND INTACT. SBAR AND REPORT GIVEN TO SILK SCREEN CUTTER RN, ALL QUESTIONS ANSWERED. SAFETY MEASURES IN PLACE, BED LOCKED AND IN LOWEST POSITION, SIDE RAILS UPX2, CALL LIGHT WITHIN REACH, PT INSTRUCTED TO CALL FOR ASSISTANCE. PT ENDORSED IN STABLE CONDITION FOR SARA.
--- NOTE | 2021-03-30 19:30 | NUR ---
RN NOTES RECEIVED PT FOR CONTINUITY OF CARE. PATIENT A/OX4 IN NO S/SX OF ACUTE DISTRESS AT THIS TIME; CURRENTLY ON 3L OF 02 VIA NC; WITH 02 SAT >95% AT THIS TIME. WITH ONGOING DOBUTAMINE DRIP @5MCG/KG/MIN (9.2MLS/HR), SARAH DRIP @0.5MCG/KG/MIN (4.6MLS/HR). WILL ENSURE SAFETY MEASURES WITHIN THE SHIFT. PATIENT BED ALARM IS ON. HEAD OF BED ELEVATED. BED IS LOCKED, IN LOWEST POSITION AND SIDE RAILS UP. CALL LIGHT WITHIN REACH OF THE PATIENT. APPLICABLE ISOLATION PRECAUTIONS IN PLACE. WILL CONTINUE TO MONITOR AND REASSESS FOR ANY CHANGES AND WILL CARRY OUT ANY ONGOING AND ACTIVE MD ORDER.
--- NOTE | 2021-03-30 20:30 | NUR ---
RN NOTES ENDED BLOOD TRANSFUSION @2029, VITAL SIGNS REMAINED STABLE ; WITHIN PT'S BASELINE, NO BLOOD TRANSFUSION REACTION NOTED. WILL CONTINUE TO MONITOR AND ASSESS FOR ANY BLOOD TRANSFUSION REACTION POST PROCEDURE. OPTICAL DISPENSER MADE AWARE.
--- NOTE | 2021-03-30 20:45 | NUR ---
RN NOTES SPOKE WITH ANGELA WINSTON (DR. RICHARDSON) ADVISED THAT PT PASSED SOME CLOUDY REDDISH URINE OUTPUT. SECRUED ORDER FOR URINALYSIS. ALSO ADVSIED THAT PT FINISHED BT OF 1UNIT PRBC, LABS IN THE MORNING FOR REPEAT H&H. WASTE REMOVALIST MADE AWARE.
[2021-03-30] MEDS: FAMOTIDINE (20 MG) 20 MG TABLET PO SCH (21:33)
[2021-03-30] MEDS: ZOLPIDEM TARTRATE 5 MG TABLET PO PRN (21:34)
[2021-03-31] VITALS (84 sets, daily range): BP systolic 77–162; BP diastolic 41–139
[2021-03-31] MEDS: DOBUTamine 500 MG in IV D5W 210 ML IV PRN (05:09)
[2021-03-31 05:49] LABS: BASOPHILS % (AUTO) 0.2 % (0.0-2.0); EOSINOPHILS % (AUTO) 0.7 % (0.0-6.0); HEMATOCRIT 26 % (33-45); LYMPHOCYTES # (AUTO) 0.5 K/uL (0.8-4.8); LYMPHOCYTES % (AUTO) 8.6 % (20.0-44.0); MEAN CORPUSCULAR HGB CONC 32 g/dl (31.0-36.0); MEAN CORPUSCULAR VOLUME 85 fL (82-100); MONOCYTES # (AUTO) 0.6 K/uL (0.1-1.30); MONOCYTES % (AUTO) 10.4 % (2.0-12.0); NEUTROPHILS # (AUTO) 4.9 K/uL (1.8-8.9); NEUTROPHILS % (AUTO) 80.1 % (43.0-81.0); PLATELET COUNT (AUTO) 99 K/uL (150-450); WHITE BLOOD COUNT (AUTO) 6.1 K/uL (4.3-11.0)
[2021-03-31 05:54] LABS: ALANINE AMINOTRANSFERASE 594 U/L (12-78); ALBUMIN 3.2 g/dL (3.4-5.0); ALKALINE PHOSPHATASE 103 U/L (46-116); ASPARTATE AMINOTRANSFERASE 68 U/L (15-37); BILIRUBIN,TOTAL 0.6 mg/dL (0.2-1.0); CALCIUM, SERUM 7.4 mg/dL (8.5-10.1); CARBON DIOXIDE 26 mmol/L (21-32); CHLORIDE 95 mmol/L (98-107); CREATININE 3.4 mg/dL (0.6-1.3); GLUCOSE 120 mg/dL (74-106); PHOSPHORUS 3.6 mg/dL (2.5-4.9); POTASSIUM 5.3 mmol/L (3.5-5.1); SODIUM SERUM 129 mmol/L (136-145); TOTAL PROTEIN, SERUM 5.8 g/dL (6.4-8.2); UREA NITROGEN, BLOOD 35 mg/dL (7-18)
[2021-03-31 06:42] LABS: BILIRUBIN,URINE SMALL (NEGATIVE); COLOR,URINE DARK YELLOW (YELLOW); LEUKOCYTE ESTERASE ,URINE LARGE (NEGATIVE); NITRITE, URINE NEGATIVE (NEGATIVE); PROTEIN,URINE 100 mg/dl (NEGATIVE); UGLUCOSE NEGATIVE (NEGATIVE); UROBILINOGEN,URINE 0.2 EU/dL (0.2)
[2021-03-31 08:04] LABS: LYMPHOCYTES % (MANUAL) 13 % (16-48); MONOCYTES % (MANUAL) 9 % (0-11.0); NEUTROPHILS % (MANUAL) 78 (42-76)
[2021-03-31] MEDS: NEPRO VAN 237 ML CAN PO SCH (08:25)
[2021-03-31] MEDS: CALCIUM ACETATE 667 MG CAP/TAB PO SCH ×3 (08:36→17:38)
[2021-03-31] MEDS: GABAPENTIN 100 MG CAPSULE PO SCH (08:36)
[2021-03-31] MEDS: AMIODARONE HCL 200 MG TABLET PO SCH ×3 (08:37→17:39)
[2021-03-31] MEDS: MIDODRINE HCL (5MG) 5 MG TABLET PO SCH ×3 (08:38→17:39)
[2021-03-31] MEDS: APIXABAN 2.5 MG TABLET PO SCH ×2 (08:45→17:46)
[2021-03-31 09:36] LABS: BACTERIA,URINE 3+ /HPF (None Seen); RBC,URINE 81-100 /HPF (0-2); SQUAMOUS EPITHELIAL CELL,UR Few /HPF (None Seen); WBC,URINE TOO NUMEROUS TO COUN /HPF (0-3)
[2021-03-31] MEDS: ALBUMIN 25% 25 GM in PREMIX 1 EA IV PRN (13:36)
[2021-03-31] MEDS: SOD FERRIC GLUC 125 MG in IV NS 0.9% 100 ML IV SCH (16:45)
[2021-03-31] MEDS: CEFTRIAXONE 1 G in IV D5W 50 ML IV SCH (18:57)
--- NOTE | 2021-03-31 19:21 | NUR ---
RN MORNING NOTE PT RECEIVED SITTING IN CHAIR AT BEDSIDE ON 3L NC SAT 97% TOLERATING WELL WITH NO SIGNS OF LABORED BREATHING OR DISTRESS. PT IS A/OX4 TELE MONITORED ST. IV ACCESS R CW PERM, L UA PICC, L HAND 20G, PATENT AND INTACT WITH NO SIGNS OF INFILTRATION. PT SCHEDULED FOR HD LATER TODAY. BED IS LOCKED IN LOWEST POSITION X2 GUARD RAILS UP, HOSPITAL SAFETY MEASURES ARE IN PLACE. WILL CONTINUE TO MONITOR THIS SHIFT.
--- NOTE | 2021-03-31 19:24 | NUR ---
RN NIKOLAY NOTE PT IS SITTING IN CHAIR AT BEDSIDE ON 5L NC SAT 97% TOLERATING WELL WITH NO SIGNS OF LABORED BREATHING OR DISTRESS. PT IS A/OX4 TELE MONITORED ST. IV ACCESS R CW PERM, L UA PICC, L HAND 20G, PATENT AND INTACT WITH NO SIGNS OF INFILTRATION. PT HAD HD TODAY AND 1L FLUID REMOVED AND TOLERATED WELL. ALL MEDS HAVE BEEN GIVEN AND ALL NEEDS HAVE BEEN MET. BED IS LOCKED IN LOWEST POSITION X2 GUARD RAILS UP, HOSPITAL SAFETY MEASURES ARE IN PLACE. WILL ENDORSE TO PENCILLER NURSE FOR SARA.
--- NOTE | 2021-03-31 19:25 | NUR ---
RN NOTES RECEIVED PT FOR CONTINUITY OF CARE. PATIENT A/OX4 IN NO S/SX OF ACUTE DISTRESS AT THIS TIME; CURRENTLY ON 3L OF 02 VIA NC; WITH 02 SAT >95% AT THIS TIME. ONGOING DRIP FOLLOWS: DOBUTAMINE DRIP @5MCG/KG/MIN SARAH DRIP @0.6MCG/KG/MINWILL ENSURE SAFETY MEASURES WITHIN THE SHIFT. PATIENT BED ALARM IS ON. HEAD OF BED ELEVATED. BED IS LOCKED, IN LOWEST POSITION AND SIDE RAILS UP. CALL LIGHT WITHIN REACH OF THE PATIENT. APPLICABLE ISOLATION PRECAUTIONS IN PLACE. WILL CONTINUE TO MONITOR AND REASSESS FOR ANY CHANGES AND WILL CARRY OUT ANY ONGOING AND ACTIVE MD ORDER.
--- NOTE | 2021-03-31 20:00 | NUR ---
RN NOTES DOBUTAMINE DRIP TURNED OFF AND ENDED @0800. RESIDENTIAL LEASING AGENT MADE AWARE. WILL CONTINUE TO ASSESS AND MONITOR THROUGHOUT THE SHIFT.
[2021-03-31] MEDS: PHENYLEPHRINE 100 MG in IV NS 0.9% 240 ML IV PRN (20:09)
[2021-03-31] MEDS: FAMOTIDINE (20 MG) 20 MG TABLET PO SCH (21:18)
[2021-03-31] MEDS: ZOLPIDEM TARTRATE 5 MG TABLET PO PRN (21:18)
--- NOTE | 2021-03-31 23:00 | NUR ---
RN NOTES NOTIFIED ONCMALLORY WINSTON (DR. CAMARILLO) OF PT'S EPISODES OF ANXIETY AND NOT ABLE TO SLEEP ALTHOUGH PT ALREADY RECEIVED SLEEPING MEDICATION PRN. ALL PERTINENT INFO ABOUT PT GIVEN TO ANGELA WINSTON. ORDER GIVEN FOR ATIVAN 0.5MG Q6H PRN. RN ACKNOLEDGED. WALL WASHER MADE AWARE. WILL CARRY OUT ORDER.
[2021-03-31] MEDS: LORAZEPAM INJ 2 MG/ML VIAL IV PRN (23:44)
[2021-04-01] VITALS (55 sets, daily range): BP systolic 83–124; BP diastolic 46–78
--- NOTE | 2021-04-01 04:00 | NUR ---
RN NOTES NO NOTED CHANGES IN PATIENT CONDITION AT THIS TIME; PATIENT VITALS STABLE, NO SIGNS OF ACUTE RESPIRATORY DISTRESS. AM PATIENT CARE RENDERED.WILL CONTINUE TO MONITOR AND REASSESS FOR ANY CHANGES THROUGHOUT THE SHIFT.
[2021-04-01 05:39] LABS: BASOPHILS % (AUTO) 0.2 % (0.0-2.0); EOSINOPHILS % (AUTO) 1.5 % (0.0-6.0); HEMATOCRIT 25 % (33-45); LYMPHOCYTES # (AUTO) 0.6 K/uL (0.8-4.8); LYMPHOCYTES % (AUTO) 10.6 % (20.0-44.0); MEAN CORPUSCULAR HGB CONC 31 g/dl (31.0-36.0); MEAN CORPUSCULAR VOLUME 86 fL (82-100); MONOCYTES # (AUTO) 0.5 K/uL (0.1-1.30); MONOCYTES % (AUTO) 9.9 % (2.0-12.0); NEUTROPHILS # (AUTO) 4.3 K/uL (1.8-8.9); NEUTROPHILS % (AUTO) 77.8 % (43.0-81.0); RED BLOOD CELL COUNT(AUTO) 2.95 MIL/uL (4.0-5.2); WHITE BLOOD COUNT (AUTO) 5.5 K/uL (4.3-11.0)
[2021-04-01 05:47] LABS: ALANINE AMINOTRANSFERASE 417 U/L (12-78); ALBUMIN 3.5 g/dL (3.4-5.0); ALKALINE PHOSPHATASE 97 U/L (46-116); ASPARTATE AMINOTRANSFERASE 34 U/L (15-37); BILIRUBIN,TOTAL 0.4 mg/dL (0.2-1.0); CALCIUM, SERUM 7.6 mg/dL (8.5-10.1); CARBON DIOXIDE 26 mmol/L (21-32); CHLORIDE 95 mmol/L (98-107); CREATININE 3.8 mg/dL (0.6-1.3); GLUCOSE 91 mg/dL (74-106); PHOSPHORUS 3.8 mg/dL (2.5-4.9); POTASSIUM 5.8 mmol/L (3.5-5.1); SODIUM SERUM 130 mmol/L (136-145); TOTAL PROTEIN, SERUM 6.1 g/dL (6.4-8.2); UREA NITROGEN, BLOOD 40 mg/dL (7-18)
[2021-04-01 05:55] LABS: PLATELET COUNT (AUTO) 98 K/uL (150-450)
--- NOTE | 2021-04-01 06:53 | NUR ---
RN CLOSING NOTE: PATIENT REMAINS IN ROOM IN NO SIGNS OF RESPIRATORY DISTRESS, PATIENT STILL ON 3L OF 02 VIA NC;TOLERATING WELL SATURATING @ >95% SP02. SAFETY MEASURES IMPLEMENTED, BED IN LOWEST POSITION, LOCKED, SIDE RAILS UP, CALL LIGHT WITHIN REACH. ALL NEEDS AND ORDERS ADDRESSED DURING THE SHIFT. IV ACCESS MAINTAINED INTACT, SECURED AND FLUSHING WELL. ALL DUE MEDS GIVEN ORDERED & SCHEDULED ; PATIENT TOLERATED WELL. STILL WITH ONGOING SARAH DRIP @0.8MCG/KG/MIN RUNNING, MONITORED AND ADJUSTED PER PROTOCOL. PATIENT KEPT CLEAN AND COMFORTABLE WITHIN THE SHIFT. PATIENT ENDORSED TO INCOMING SHIFT RN WITH STABLE VITAL SIGN AND FOR CONTINUITY OF CARE.
--- NOTE | 2021-04-01 07:36 | NUR ---
RN MORNING NOTE PT RECIEVED IN BED SLEEPING WITH 3L O2 VIA NC, TOLERATING WELL WITH NO SIGNS OF DISTRESS SAT 95%. PT IS A/OX4 AND ON RENAL DIET. PT HAS IV ACCESS R CW HD CATH AND L UA PICC. PT CONTINUES WITH ONGOING SARAH DRIP @0.8MCG/KG/MIN RUNNING. WILL CONTINUE TO MONITOR AND ADJUST PER PROTOCOL. BED IS LOCKED IN LOWEST POSITION X2 GUARD RAILS UP, ALL HOSPITAL SAFETY MEASURES ARE IN PLACE. WILL CONTINUE TO MONITOR THIS SHIFT.
[2021-04-01] MEDS: NEPRO VAN 237 ML CAN PO SCH (08:29)
[2021-04-01] MEDS: CALCIUM ACETATE 667 MG CAP/TAB PO SCH ×3 (08:33→18:18)
[2021-04-01] MEDS: GABAPENTIN 100 MG CAPSULE PO SCH (08:33)
[2021-04-01] MEDS: AMIODARONE HCL 200 MG TABLET PO SCH ×3 (08:35→17:06)
[2021-04-01] MEDS: MIDODRINE HCL (5MG) 5 MG TABLET PO SCH ×3 (08:37→17:05)
[2021-04-01] MEDS: APIXABAN 2.5 MG TABLET PO SCH ×2 (08:38→17:07)
--- NOTE | 2021-04-01 12:00 | NUR ---
RN NOTE PER DR. HERRERA, JOSSELIN FOR SBP TO BE LOW 80. PT ON SARAH CURRENTLY AT 0.8; TITRATED SARAH DOWN TO 0.7. WILL CONTINUE TO MONITOR
--- NOTE | 2021-04-01 14:00 | NUR ---
RN NOTE TITRATION PT ON SARAH CURRENTLY AT 0.7; TITRATED SARAH DOWN TO 0.6. WILL CONTINUE TO MONITOR
[2021-04-01] MEDS: SOD FERRIC GLUC 125 MG in IV NS 0.9% 100 ML IV SCH (14:35)
[2021-04-01] MEDS: CEFTRIAXONE 1 G in IV D5W 50 ML IV SCH (16:59)
--- NOTE | 2021-04-01 19:10 | NUR ---
RN NOTE RECEIVED PATIENT SITTING IN CHAIR ALERT ORIENTED X2-3 VERBALLY RESPONSIVE ON 3L OXYGEN O2:94% IV SITE IS ON LEFT UPPER ARM PICC LINE AND RIGHT UPPER CHEST PERM-CATH DRESSING INTACT,ON SARAH DRIP 0.3MCG/KG/MIN,SAFETY MEASURE IMPLEMENT, BED IN LOW POSITION AND LOCKED,CALL LIGHT WITHIN REACH CONTINUE TO MONITOR.
--- NOTE | 2021-04-01 19:49 | NUR ---
RN CLOSING NOTE PT IS SITTING AT SIDE OF BED WITH 3L O2 VIA NC, TOLERATING WELL WITH NO SIGNS OF DISTRESS SAT 96%. PT IS A/OX4 AND ON RENAL DIET. PT HAS IV ACCESS R CW HD CATH AND L UA PICC. PT CONTINUES WITH ONGOING SARAH DRIP @0.3MCG/KG/MIN RUNNING. PT WAS FITTED AND RECEIVED ZOLL AED LIFE VEST TODAY. PER DR. HERRERA, OK IF SBP IS LOW 80. PT DID NOT HAVE HD TODAY. WILL CONTINUE TO MONITOR AND ADJUST PER PROTOCOL. BED IS LOCKED IN LOWEST POSITION X2 GUARD RAILS UP, ALL HOSPITAL SAFETY MEASURES ARE IN PLACE. WILL ENDORSE TO ABSTRACTER NURSE FOR SARA.
[2021-04-01] MEDS: ZOLPIDEM TARTRATE 5 MG TABLET PO PRN (21:18)
[2021-04-01] MEDS: FAMOTIDINE (20 MG) 20 MG TABLET PO SCH (21:18)
[2021-04-02] VITALS (53 sets, daily range): BP systolic 71–124; BP diastolic 23–70
[2021-04-02 05:10] LABS: BASOPHILS % (AUTO) 0.5 % (0.0-2.0); EOSINOPHILS % (AUTO) 1.2 % (0.0-6.0); HEMATOCRIT 25 % (33-45); HEMOGLOBIN 7.7 g/dL (11.5-14.8); LYMPHOCYTES # (AUTO) 0.5 K/uL (0.8-4.8); LYMPHOCYTES % (AUTO) 9.3 % (20.0-44.0); MEAN CORPUSCULAR HGB CONC 32 g/dl (31.0-36.0); MEAN CORPUSCULAR VOLUME 87 fL (82-100); MONOCYTES # (AUTO) 0.5 K/uL (0.1-1.30); MONOCYTES % (AUTO) 8.8 % (2.0-12.0); NEUTROPHILS # (AUTO) 4.6 K/uL (1.8-8.9); NEUTROPHILS % (AUTO) 80.2 % (43.0-81.0); PLATELET COUNT (AUTO) 102 K/uL (150-450); RED BLOOD CELL COUNT(AUTO) 2.83 MIL/uL (4.0-5.2); WHITE BLOOD COUNT (AUTO) 5.7 K/uL (4.3-11.0)
[2021-04-02 05:48] LABS: ALANINE AMINOTRANSFERASE 313 U/L (12-78); ALBUMIN 3.4 g/dL (3.4-5.0); ALKALINE PHOSPHATASE 100 U/L (46-116); ASPARTATE AMINOTRANSFERASE 19 U/L (15-37); BILIRUBIN,TOTAL 0.4 mg/dL (0.2-1.0); CALCIUM, SERUM 7.8 mg/dL (8.5-10.1); CARBON DIOXIDE 24 mmol/L (21-32); CHLORIDE 93 mmol/L (98-107); CREATININE 4.6 mg/dL (0.6-1.3); GLUCOSE 121 mg/dL (74-106); MAGNESIUM 2.2 mg/dL (1.8-2.4); PHOSPHORUS 4.5 mg/dL (2.5-4.9); POTASSIUM 5.9 mmol/L (3.5-5.1); SODIUM SERUM 127 mmol/L (136-145); UREA NITROGEN, BLOOD 56 mg/dL (7-18)
--- NOTE | 2021-04-02 07:21 | NUR ---
RN NOTE PATIENT REMAINS ALERT ORIENTEDX3 VERBALLY RESPONSIVE ON 5L OXYGEN VIA NASAL CANNULA,NO SOB NOT ACUTE DISTRESS NOTED,ALL DUE MEDS GIVEN MD ORDERED PATIENT IS ON SARAH 0.3 MCG/KG/MIN KEPT CLEAN AND DRY ALL THE TIME KEPT COMFORTABLE ALL NEEDS MET ENDORSE NEXT COMING SHIFT FOR CONTINUATION OF CARE.
--- NOTE | 2021-04-02 07:30 | NUR ---
RN CLOSING NOTE PT IS SITTING ON CHAIR WITH 5L O2 VIA NC, TOLERATING WELL WITH NO SIGNS OF DISTRESS SAT 96%. PT IS A/OX3 AND ON RENAL DIET. PT HAS IV ACCESS R CW HD CATH AND L UA PICC. PT CONTINUES WITH ONGOING SARAH DRIP @0.3MCG/KG/MIN RUNNING. PER DR. HERRERA. WILL CONTINUE TO MONITOR AND ADJUST PER PROTOCOL. BED IS LOCKED IN LOWEST POSITION X2 GUARD RAILS UP, ALL HOSPITAL SAFETY MEASURES ARE IN PLACE. WILL SARA.
[2021-04-02] MEDS: GABAPENTIN 100 MG CAPSULE PO SCH (08:03)
[2021-04-02] MEDS: CALCIUM ACETATE 667 MG CAP/TAB PO SCH ×3 (08:03→17:12)
[2021-04-02] MEDS: MIDODRINE HCL (5MG) 5 MG TABLET PO SCH ×3 (08:04→16:26)
[2021-04-02] MEDS: AMIODARONE HCL 200 MG TABLET PO SCH ×3 (08:05→16:25)
[2021-04-02] MEDS: NEPRO VAN 237 ML CAN PO SCH (08:08)
--- NOTE | 2021-04-02 08:20 | NUR ---
RN NOTE REPORT HGB 7.7 , NA 127, AND POTTASIUM TO MD YAMILKA RICHARDSON, WILL CONTINUE TO MONITOR
[2021-04-02] MEDS: APIXABAN 2.5 MG TABLET PO SCH ×2 (09:00→16:25)
--- NOTE | 2021-04-02 09:30 | NUR ---
RN NOTE REPORT HGB 7.7 DR HERRERA, HOLD THE ELIQUIS PER HIS ORDER.
[2021-04-02] MEDS: DOCUSATE SODIUM 100 MG CAPSULE PO PRN ×2 (11:47→11:49)
--- NOTE | 2021-04-02 11:50 | NUR ---
RN NOTE PT A/O X4, PT COMPLAIN OF CONSTIPATION, PROVIDE COLACE TO HER
--- NOTE | 2021-04-02 15:30 | NUR ---
RN NOTE PER DR. ZAZUETA 2 BAG 25% ALBUMIN DURING DIALYSIS FOR BP SUPPORT.
[2021-04-02] MEDS: CEFTRIAXONE 1 G in IV D5W 50 ML IV SCH ×2 (16:26→20:16)
--- NOTE | 2021-04-02 17:00 | NUR ---
RN NOTE REPORT HGB 7.7 DR HERRERA, HOLD THE ELIQUIS PER HIS ORDER.
--- NOTE | 2021-04-02 17:00 | NUR ---
RN NOTE ROCEPHIN NOT GIVEN DUE TO PT ON HD AT THIS TIME
[2021-04-02] MEDS ORDERED: ALBUMIN 25% 25 GM in PREMIX 1 EA IV SCH (17:30)
[2021-04-02] MEDS: ALBUMIN 25% 25 GM in PREMIX 1 EA IV PRN (18:34)
[2021-04-02] MEDS: PHENYLEPHRINE 100 MG in IV NS 0.9% 240 ML IV PRN (19:31)
--- NOTE | 2021-04-02 19:44 | NUR ---
RN CLOSING NOTE PT REMAIN SITTING ON THE BED WITH 5L O2 VIA NC, TOLERATING WELL WITH NO SIGNS OF DISTRESS SAT 100%. PT IS A/OX3 AND ON RENAL DIET. PT HAS IV ACCESS R CW HD CATH AND L UA PICC. PT CONTINUES WITH ONGOING SARAH DRIP @0.9MCG/KG/MIN RUNNING. PT HAS LIFE VEST ON TODAY. PER DR. HERRERA, OK IF SBP IS LOW 80. PT HAS HD RIGHT NOW AT BED SIDE. WILL CONTINUE TO MONITOR AND ADJUST PER PROTOCOL. BED IS LOCKED IN LOWEST POSITION X2 GUARD RAILS UP, ALL HOSPITAL SAFETY MEASURES ARE IN PLACE. WILL ENDORSE TO WINTERIZER NURSE FOR SARA.
--- NOTE | 2021-04-02 20:30 | NUR ---
RN NOTE HD S/P HD 1L REMOVED
--- NOTE | 2021-04-02 20:50 | NUR ---
RN NOTE ABX ABX RUNNING NOW DIALYSIS IS COMPLETE
[2021-04-02] MEDS: FAMOTIDINE (20 MG) 20 MG TABLET PO SCH (22:07)
--- NOTE | 2021-04-02 23:05 | NUR ---
RN NOTE BM ASSISTED PT TO BSC, PT IS WEAK AND GAIT UNSTEADY. PT HAD 1BM, HARD FORMED. ASHLEY CARE DONE. NEEDS ATTENDED
[2021-04-03] VITALS (77 sets, daily range): BP systolic 35–157; BP diastolic 17–96
--- NOTE | 2021-04-03 01:30 | NUR ---
RN NOTE URINARY CATH PT BEGAN YELLING REGARDING HER NEED TO URINATE, VERBALIZING SHE DEMANDS TO HAVE AN IN AND OUT CATHETERIZATION DONE ON HER. EDUCATED PT ON PLAN OF CARE AND IMPORTANCE OF STERILE TECHNIQUE TO PREVENT INFECTION. PT PROCEEDED TO PLACE CATH HERSELF WITH ONE SHE BROUGHT FROM HOME FROM HER PURSE. PT BECAME UPSET, EXPLAINING TO MOTOR VEHICLE LECTURER AND I ABOUT HOW SHE HAS DONE IT ON HERSELF EVERYDAY FOR THE LAST 20 YEARS, PT DENIES CHANGING CATHETER AFTER EACH USE, PT VERBALIZES SHE WASHES AND REUSES CATHETER. EDUCATED PT ON HYGIENE/STERILE TECHNIQUE, PT WAS AGITATED, DISMISSIVE AND UNCOOPERATIVE. WILL FOLLOW UP WITH DAY SHIFT.
[2021-04-03 04:58] LABS: CALCIUM, SERUM 7.6 mg/dL (8.5-10.1); CARBON DIOXIDE 27 mmol/L (21-32); CHLORIDE 96 mmol/L (98-107); CREATININE 3.3 mg/dL (0.6-1.3); GLUCOSE 117 mg/dL (74-106); POTASSIUM 5.2 mmol/L (3.5-5.1); SODIUM SERUM 133 mmol/L (136-145); UREA NITROGEN, BLOOD 38 mg/dL (7-18)
[2021-04-03 05:02] LABS: BASOPHILS % (AUTO) 0.4 % (0.0-2.0); HEMATOCRIT 24 % (33-45); HEMOGLOBIN 7.5 g/dL (11.5-14.8); LYMPHOCYTES # (AUTO) 0.4 K/uL (0.8-4.8); LYMPHOCYTES % (AUTO) 6.3 % (20.0-44.0); MEAN CORPUSCULAR HGB CONC 31 g/dl (31.0-36.0); MEAN CORPUSCULAR VOLUME 87 fL (82-100); MONOCYTES # (AUTO) 0.5 K/uL (0.1-1.30); MONOCYTES % (AUTO) 8.2 % (2.0-12.0); NEUTROPHILS # (AUTO) 4.8 K/uL (1.8-8.9); NEUTROPHILS % (AUTO) 84.1 % (43.0-81.0); PLATELET COUNT (AUTO) 101 K/uL (150-450); RED BLOOD CELL COUNT(AUTO) 2.76 MIL/uL (4.0-5.2); WHITE BLOOD COUNT (AUTO) 5.7 K/uL (4.3-11.0)
--- NOTE | 2021-04-03 06:30 | NUR ---
RN NOTE CLOSING PT REMAINS ON 4L OF O2 VIA NASAL CANNULA, PT REPORTS DIFFICULTY BREATHING, VERBALIZING SITTING IN CHAIR FEELS BETTER. O2 SAT AT 96% PT EDUCATED ON PLAN OF CARE. AT THIS TIME, PRESENTS WITH SINUS TACH HR 120S. PT THROUGHOUT SHIFT HAS BEEN IN AND OUT OF AFIB HR CONSISTENT AT 124 PT HAD 1 BM, WAS CONSTIPATED. PT DENIES PAIN. PT PLACED A URINARY CATH ON HERSELF, STRAIGHT CATH. PT REMAINS ON SARAH FOR BP AT 0.9MCG/KG/MIN PT CURRENTLY SBP >80 ORDERED. ALL NEEDS ATTENDED. SAFETY MEASURES IN PLACE. CALL LIGHT WITHIN REACH. WILL ENDORSE TO DAY SHIFT FOR CONTINUATION OF CARE.
--- NOTE | 2021-04-03 07:30 | NUR ---
DRIVER MATERIAL HANDLER OPENING NOTES Patient received sitting in bedside chair on 4 liters 02 via n/c. Patient noted with left ac picc line and right chest wall perma cath. Patient is alert and oriented x 3. Noted with generalized shaking and temp of 96.9. Heated blankets provided. Patient refused to be transferred to bed. Will try again.Patient noted with Afib rhythm 122 bpm. Will continue to monitor. Call light with in reach. HOB kepet elevated.
[2021-04-03] MEDS: NEPRO VAN 237 ML CAN PO SCH (08:00)
--- NOTE | 2021-04-03 08:15 | NUR ---
Patient provided breakfast and assisted with meal and noted with 40% intake. Patient educated again to go back to bed. Patient assisted by two nurses back to bed.
[2021-04-03] MEDS: GABAPENTIN 100 MG CAPSULE PO SCH (09:07)
[2021-04-03] MEDS: AMIODARONE HCL 200 MG TABLET PO SCH ×3 (09:07→18:00)
[2021-04-03] MEDS: MIDODRINE HCL (5MG) 5 MG TABLET PO SCH ×3 (09:07→18:00)
[2021-04-03] MEDS: CALCIUM ACETATE 667 MG CAP/TAB PO SCH ×3 (09:07→18:00)
[2021-04-03] MEDS: APIXABAN 2.5 MG TABLET PO SCH ×2 (09:31→18:03)
[2021-04-03 10:19] LABS: ABG BASE EXCESS -4.2 mmol/L; ABG OXYGEN SATURATION 98.1 % (92.0-98.5); ABG PCO2 55.8 mmHg (35.0-45.0); ABG PH 7.239 (7.350-7.450); ABG PO2 133.5 mmHg (75.0-100.0); AaDO2 87.5 mmHg; COHb 0.9 % (0.5-1.5); MetHb 0.3 % (0.0-1.5); O2Hb 96.9 % (94.0-97.0); SITE, ABG Right Radial; VENT MODE, BG 5L NC
--- NOTE | 2021-04-03 10:30 | NUR ---
Patient noted with seizure acitivity from 0110-3972, clenched teeth and generalized shaking. Patient lost consciousness from 1057-10:04 am. seziure precautions observed , area kept safe. Patient remained confused afterwards. Dr Velasquez made aware and received orders for abg and ekg stat. Abg results shown and orders for Bipap and repeat abg in one hour at 11:30. Results of EKG sent to Dr Landrum and robbino at this time.Patient in stable condition. Vitals documented. Patient assessed for any trauma to the tonguek, none noted. Will continue to monitor. Call light with in reach.
[2021-04-03 12:11] LABS: ABG BASE EXCESS 0.2 mmol/L; ABG OXYGEN SATURATION 98.2 % (92.0-98.5); ABG PCO2 54.7 mmHg (35.0-45.0); ABG PH 7.309 (7.350-7.450); ABG PO2 126.7 mmHg (75.0-100.0); AaDO2 95.6 mmHg; COHb 1.2 % (0.5-1.5); MetHb 0.3 % (0.0-1.5); O2Hb 96.7 % (94.0-97.0); SITE, ABG Right Radial; VENT MODE, BG BIPAP 15/5 R14 40%
[2021-04-03] MEDS: LORAZEPAM INJ 2 MG/ML VIAL IV PRN (12:45)
--- NOTE | 2021-04-03 12:46 | NUR ---
Patient had another episode of seizure lasting 30 seconds. Generalized shaking. Seizure precautions observed. WOUND NURSE Shaila Cosby aware and assessed at the time of seizure. Bed is in lowest and locked position. Order received for Ativan 1mg iv stat. Previous order used to obtain dose from Letyano for stat. Patient given 1 mg iv ativan via picc line. Will continue to monitor. Call light with in reach.
--- NOTE | 2021-04-03 12:47 | NUR ---
seizure activity started at 1245 pm lating 30 seconds
[2021-04-03] MEDS ORDERED: LEVETIRACETAM (500MG) 1,000 MG in IV NS 0.9% 100 ML IV ONE (14:00)
[2021-04-03 14:15] LABS: ABG BASE EXCESS -6.3 mmol/L; ABG OXYGEN SATURATION 98.5 % (92.0-98.5); ABG PCO2 44.6 mmHg (35.0-45.0); ABG PH 7.272 (7.350-7.450); AaDO2 88.9 mmHg; COHb 0.9 % (0.5-1.5); MetHb 0.3 % (0.0-1.5); O2Hb 97.3 % (94.0-97.0); SITE, ABG Left Radial
[2021-04-03] MEDS ORDERED: LORAZEPAM INJ 2 MG/ML VIAL IV PRN (17:30)
[2021-04-03] MEDS: PHENYLEPHRINE 100 MG in IV NS 0.9% 240 ML IV PRN (17:38)
[2021-04-03] MEDS: CEFTRIAXONE 1 G in IV D5W 50 ML IV SCH (17:59)
--- NOTE | 2021-04-03 19:05 | NUR ---
DOORPERSON OR LUGGAGE PORTER CLOSING NOTES Patient resting in bed on 2 lpm via n/c with o2 sat of 98%. Patient noted with left ac picc line and right chest wall perma cath. Patient is alert and oriented. Patient free of any s/sx of seizure activity and follows command.Turned and repositioned. Bilateral wrist restraints noted and free of s/s of skin breakdown. Patient remained free from any seizure activity after two episodes during shift. Vitals WNL. NO c/o pain or discomfort. Life vest on and functioning and batteries changed. Patient is running genia at 1 mcg to left upper arm and current bp of 102/68. Bed is in lowest and locked position. Endorsed to next shift for arie. Side rails padded for seizure precautions.
--- NOTE | 2021-04-03 19:35 | NUR ---
RN OPENING NOTE PT REC'D ON 2L NASAL CANNULA, O2 SAT 100% PT IS ALERT, COMPLAINS OF WEAKNESS. PT RESTING IN BED. ST ON MONITOR. DENIES PAIN, SOB, HD ACCESS INTACT AND OLIVIER PICC FLUSHED ASEPTICALLY, SRAAH RUNNING AT 1MCG/KG/MIN. BLE/BUE EDEMA SAFETY MEASURES IN PLACE. SEIZURE PRECAUTIONS IN PLACE. CALL LIGHT WITHIN REACH. WILL CONT MONITOR FOR CHANGE OF CONDITION.
[2021-04-03] MEDS: LEVETIRACETAM (500MG) 500 MG in IV NS 0.9% 100 ML IV SCH (21:00)
[2021-04-03] MEDS: FAMOTIDINE (20 MG) 20 MG TABLET PO SCH (21:04)
--- NOTE | 2021-04-03 23:40 | NUR ---
RT NOTE PT PLACED ON BIPAP AT THIS TIME WITH CURRENT SETTINGS OF 15/5, 14, 30%. PT NOTED WITH INCREASED WOB. PT TOLERATING BIPAP WELL AND NOW IS ASLEEP. MISBAH [place] @ BEDSIDE. NO RESPIRATORY DISTRESS NOTED AT THIS TIME. MASK SECURED. WILL CONTINUE TO MONITOR CLOSELY.
--- NOTE | 2021-04-03 23:51 | NUR ---
RN NOTE BIPAP PT NOTED WITH DIFFICULTY BREATHING, PT VERBALIZED SHE BREATHES BETTER WITH IT ON. NOTIFIED CHARGING MACHINE OPERATOR BERNARDA REGARDING USE OF BIPAP FROM EARLIER TODAY. ORDERS CARRIED OUT FOR USE OF BIPAP PT WITH BIPAP ON APPEARS COMFORTABLE NO S/S OF RESP DISTRESS, PT VERBALIZES BREATHING BETTER. WILL CONT TO MONITOR. O2 SAT 100% BIPAP SETTINGS 15/5 RATE 14 FIO2 30%
[2021-04-04] VITALS (90 sets, daily range): BP systolic 78–151; BP diastolic 29–91
[2021-04-04 04:58] LABS: BASOPHILS % (AUTO) 0.9 % (0.0-2.0); EOSINOPHILS % (AUTO) 1.5 % (0.0-6.0); HEMATOCRIT 25 % (33-45); HEMOGLOBIN 7.9 g/dL (11.5-14.8); LYMPHOCYTES # (AUTO) 0.6 K/uL (0.8-4.8); LYMPHOCYTES % (AUTO) 10.9 % (20.0-44.0); MEAN CORPUSCULAR HGB CONC 31 g/dl (31.0-36.0); MEAN CORPUSCULAR VOLUME 87 fL (82-100); MONOCYTES # (AUTO) 0.5 K/uL (0.1-1.30); MONOCYTES % (AUTO) 9.3 % (2.0-12.0); NEUTROPHILS # (AUTO) 4.1 K/uL (1.8-8.9); NEUTROPHILS % (AUTO) 77.4 % (43.0-81.0); PLATELET COUNT (AUTO) 109 K/uL (150-450); RED BLOOD CELL COUNT(AUTO) 2.91 MIL/uL (4.0-5.2); WHITE BLOOD COUNT (AUTO) 5.3 K/uL (4.3-11.0)
[2021-04-04 05:09] LABS: CALCIUM, SERUM 8.2 mg/dL (8.5-10.1); CARBON DIOXIDE 28 mmol/L (21-32); CHLORIDE 96 mmol/L (98-107); CREATININE 4.2 mg/dL (0.6-1.3); GLUCOSE 93 mg/dL (74-106); POTASSIUM 5.9 mmol/L (3.5-5.1); SODIUM SERUM 133 mmol/L (136-145); UREA NITROGEN, BLOOD 50 mg/dL (7-18)
--- NOTE | 2021-04-04 06:49 | NUR ---
RN CLOSING NOTE PT AT THIS TIME REMAINS ON 2L OF O2 VIA NASAL CANNULA. PT C/O OF WANTING BIPAP ON AND WANTING TO TAKE IT OFF MULT TIMES THROUGHOUT SHIFT. CURRENTLY NO DISTRESS NOTED, NO SOB. PT NEEDS ATTENDED. PROVIDED NOURISHMENT. SAFETY MEASURES IN PLACE. SZ PRECAUTIONS MAINTAINED. CALL LIGHT WITHIN REACH. WILL ENDORSE TO DAY SHIFT FOR CONTINUATION.
[2021-04-04 07:53] LABS: ABG BASE EXCESS -1.9 mmol/L; ABG PCO2 51.6 mmHg (35.0-45.0); ABG PH 7.298 (7.350-7.450); ABG PO2 70.8 mmHg (75.0-100.0); COHb 0.9 % (0.5-1.5); MetHb 0.3 % (0.0-1.5); O2Hb 90.9 % (94.0-97.0); SITE, ABG Right Radial
--- NOTE | 2021-04-04 07:53 | NUR ---
RT POST ABG RESULTS SHOWN TO DR. BARNARD. PLACED PT ON 1LPM NC. FREDY CRAWLEY NOTIFIED. WILL CONTINUE TO MONITOR THE PT FOR ANY CHANGES.
[2021-04-04] MEDS: NEPRO VAN 237 ML CAN PO SCH (08:00)
[2021-04-04] MEDS: GABAPENTIN 100 MG CAPSULE PO SCH (08:59)
[2021-04-04] MEDS: MIDODRINE HCL (5MG) 5 MG TABLET PO SCH ×3 (09:00→17:00)
[2021-04-04] MEDS: AMIODARONE HCL 200 MG TABLET PO SCH ×3 (09:01→16:59)
[2021-04-04] MEDS: APIXABAN 2.5 MG TABLET PO SCH ×2 (09:02→17:00)
[2021-04-04] MEDS: CALCIUM ACETATE 667 MG CAP/TAB PO SCH ×3 (09:04→17:04)
[2021-04-04] MEDS: LEVETIRACETAM (500MG) 500 MG in IV NS 0.9% 100 ML IV SCH ×2 (10:04→21:09)
[2021-04-04] MEDS: ALBUMIN 25% 25 GM in PREMIX 1 EA IV PRN (13:09)
[2021-04-04] MEDS: EPOETIN ALFA (10,000 UNIT) 10,000 UNIT/ML VIAL IV PRN (14:28)
--- NOTE | 2021-04-04 14:29 | NUR ---
SS Consult: SS consult for patient living alone, now has seizures. Needs advanced directive. Pt. Is a 76-year-old female. Pt. demonstrates adequate insight to the reason for hospitalization. Son in law was at bedside. Pt. was oriented x3, alert, and cooperative. During interview, pt. was capable of following directions, made appropriate eye-contact, and appeared well-groomed. Pt.s speech was at a low rate. Pt.s mood was elevated. RICH explored pt.s hx of mental health and substance abuse. Pt. reported no hx of mental health, substance abuse, suicidal or homicidal ideation. Pt. denies auditory hallucinations, visual hallucinations, paranoia, or delusions. RICH explored pt.s living situation. Per pt., she lives alone [[facility] [place] [address], tele:[phone]]. Per pt., she reports having adequate support from her daughter Darlin [[phone]] and her son Reji. Son in law mentioned that pt. does not have a caregiver and recently experienced seizures. RICH made an APS report since caregiver is required and it is not safe for pt. to be home alone. RICH educated pt. on an advanced directive. Pt. stated that she would like her daughter, Darlin, to fill it out. RICH contacted Darlin to pharmacy picking tech advanced directive packet. RICH placed advanced directive in pt.s chart for pharmacy picking tech. RICH notified nurse. Plan: RICH provided available resources and pt. rejected interest at this time. RICH placed advanced directive in pt.s chart for pharmacy picking tech. RICH notified nurse. APS Intake #[id number]
[2021-04-04] MEDS: PHENYLEPHRINE 100 MG in IV NS 0.9% 240 ML IV PRN (14:30)
[2021-04-04] MEDS: CEFTRIAXONE 1 G in IV D5W 50 ML IV SCH (17:00)
[2021-04-04] MEDS ORDERED: LEVETIRACETAM (500MG) 500 MG in IV NS 0.9% 100 ML IV PRN (17:00)
--- NOTE | 2021-04-04 17:00 | NUR ---
MD Landrum updated son Reji via phone call on patient's condition.
--- NOTE | 2021-04-04 17:18 | NUR ---
Received orders from Dr Rivas for keppra 500 mg iv prn after each dialysis. Order noted and carried out. Patient had HD with 3 liters out and keppra given.
[2021-04-04] MEDS ORDERED: ADENOSINE 6 MG/2 ML VIAL IVP ONE (18:40)
--- NOTE | 2021-04-04 19:15 | NUR ---
Received order from Dr iFshman for Adenosine 6 mg iv x 1 and to send me the results of her rhythm. Patient given 6 mg and MD fishman provided with the patient's heart rhythm. Per MD to give patient digoxin iv x 1 dose because its a atrial flutter. Orders put in and endorsed to next shift.
--- NOTE | 2021-04-04 19:27 | NUR ---
POWERTRAIN DESIGN ENGINEER CLOSING NOTES Patient resting in bed on 2 lpm via n/c with o2 sat of 96%. Patient noted with left ac picc line and right chest wall perma cath. Patient is alert and oriented. Patient free of any s/sx of seizure activity and follows command.Turned and repositioned. Patient remained free from any seizure activity Vitals WNL. NO c/o pain or discomfort. Life vest on and functioning and batteries changed. Patient is running genia at 1.3 mcg to left upper arm. Bed is in lowest and locked position. Endorsed to next shift for arie. Side rails padded for seizure precautions.
[2021-04-04] MEDS ORDERED: DIGOXIN INJ 0.5 MG/2 ML AMPUL IV ONE (19:30)
--- NOTE | 2021-04-04 20:10 | NUR ---
ICU/CRIMINAL JUSTICE LAWYER DIGOXIN 0.5 IVP X1 WAS ORDERED BY DR TAFOYA FOR AFLUTTER. CHARGE NURSE RN WAS MADE AWARE OF THIS. ORDER WAS CARRIED OUT. WILL CONTINUE TO MONITOR THIS PT AND HER HEART RATE.
[2021-04-04] MEDS: FAMOTIDINE (20 MG) 20 MG TABLET PO SCH (21:08)
--- NOTE | 2021-04-04 21:31 | NUR ---
ICU/BI CONSULTANT STABLE BP 126/83, 117. PT HAS STABLE BP, NOTIFED CHARGE NURSE WHO LOWERED DOWN SARAH TO 1.2MCG/HR. WILL CONTINUE TO MONITOR THIS PT AND HER BP
--- NOTE | 2021-04-04 22:31 | NUR ---
ICU/FIRST ASSISTANT STABLE BP FOR A FEW CYCLES, NOTIFED CHARGE NURSE WHO LOWERED DOWN SARAH. WILL CONTINUE TO MONITOR THIS PT AND HER BP.
--- NOTE | 2021-04-04 23:00 | NUR ---
ICU/FAST FOOD DELIVERY DRIVER PT REFUSED BIPAP AT THIS TIME BECAME AGGRESSIVE ABOUT NOT WEARING IT. SATURATION ON N/C 2LITERS IS 95-96%. WILL CONTINUE TO MONITOR THIS PT AND HER SATURATION.
--- NOTE | 2021-04-04 23:39 | NUR ---
PT IS AGITATED AND REFUSES BIPAP, RN AWARE. CONTINUE TO MONITOR.
[2021-04-05] VITALS (79 sets, daily range): BP systolic 98–133; BP diastolic 51–94
--- NOTE | 2021-04-05 01:30 | NUR ---
ICU/SHINGLE CATCHER PROMATINE WASN'T GIVEN DUE TO STABLE BP, AND PARAMETERS WHICH ARE NOT TO GIVE IF SBP >110.WILL CONTINUE TO MONITOR THIS PT.
[2021-04-05 03:48] LABS: BASOPHILS % (AUTO) 0.7 % (0.0-2.0); HEMATOCRIT 25 % (33-45); HEMOGLOBIN 7.7 g/dL (11.5-14.8); LYMPHOCYTES # (AUTO) 0.7 K/uL (0.8-4.8); LYMPHOCYTES % (AUTO) 13.2 % (20.0-44.0); MEAN CORPUSCULAR HGB CONC 31 g/dl (31.0-36.0); MEAN CORPUSCULAR VOLUME 89 fL (82-100); MONOCYTES # (AUTO) 0.4 K/uL (0.1-1.30); NEUTROPHILS # (AUTO) 4.1 K/uL (1.8-8.9); NEUTROPHILS % (AUTO) 77.1 % (43.0-81.0); PLATELET COUNT (AUTO) 97 K/uL (150-450); RED BLOOD CELL COUNT(AUTO) 2.81 MIL/uL (4.0-5.2); WHITE BLOOD COUNT (AUTO) 5.3 K/uL (4.3-11.0)
[2021-04-05 04:00] LABS: CALCIUM, SERUM 7.6 mg/dL (8.5-10.1); CARBON DIOXIDE 25 mmol/L (21-32); CHLORIDE 97 mmol/L (98-107); CREATININE 3.4 mg/dL (0.6-1.3); GLUCOSE 84 mg/dL (74-106); SODIUM SERUM 132 mmol/L (136-145); UREA NITROGEN, BLOOD 35 mg/dL (7-18)
[2021-04-05] MEDS: NEPRO VAN 237 ML CAN PO SCH (08:02)
[2021-04-05] MEDS: APIXABAN 2.5 MG TABLET PO SCH ×2 (08:04→16:36)
[2021-04-05] MEDS: AMIODARONE HCL 200 MG TABLET PO SCH ×3 (08:04→16:35)
[2021-04-05] MEDS: CALCIUM ACETATE 667 MG CAP/TAB PO SCH ×3 (08:04→16:58)
[2021-04-05] MEDS: GABAPENTIN 100 MG CAPSULE PO SCH (08:04)
[2021-04-05] MEDS: MIDODRINE HCL (5MG) 5 MG TABLET PO SCH ×3 (08:05→16:38)
[2021-04-05] MEDS: LEVETIRACETAM (500MG) 500 MG in IV NS 0.9% 100 ML IV SCH ×2 (08:06→21:47)
[2021-04-05 09:19] LABS: ABG BASE EXCESS -1.5 mmol/L; ABG OXYGEN SATURATION 95.3 % (92.0-98.5); ABG PCO2 54.7 mmHg (35.0-45.0); ABG PH 7.285 (7.350-7.450); AaDO2 48.1 mmHg; COHb 1.2 % (0.5-1.5); MetHb 0.3 % (0.0-1.5); O2Hb 93.9 % (94.0-97.0); SITE, ABG Right Radial; VENT MODE, BG Nasal Cannula
--- NOTE | 2021-04-05 09:30 | NUR ---
ICU/TEACHER OF THE VISUALLY IMPAIRED DR BARNARD CAME TO SEE PT, ABG WAS DONE BY RT. THE ABG RESULTS WERE SENT TO DR BARNARD AND RECOMMENDATIONS WERE TO PLACE THE PT ON 1 LITER N/C. WILL CONTINUE TO MONITOR THIS PT AND HER SATURATION
--- NOTE | 2021-04-05 10:30 | NUR ---
ICU/EYEGLASS MAKER PT IS VERY NON COMPLIANT WITH MEDICATION, PT GETS CONFUSED STARTS TO PULL AT LINES, IV, GOWN, LOOKING FOR PHONE WHEN IN FRONT OF HER. PT WAS PULLED UP AND ORT TO ROOM, AND CALL LIGHT WAS DONE HOWEVER PT STATS TO GET UPSET WITH STAFF AND YELLS. PT IS DIFFICULT TO GIVE ORT TO TIME AND PLACE. SON CALLED FOR UPDATE, EXPLAINED THIS TO HIM. SON LAUGHED AND SAID YES, HE'S AWARE OF HIS MOTHERS' TEMPER.
--- NOTE | 2021-04-05 12:20 | NUR ---
ICU/INSPECTOR WATCH ASSEMBLY PT WAS PULLED UP AND REPOSITIONED FOR LUNCH, HOWEVER PT REQUESTED TO SIT ON COMMODE. EXPLAINED THAT DUE TO SEIZURES PT CAN NOT GET UP FOR THIS. PT REFUSED TO LISTEN, STARTED TO YELL AT STAFF. CALL LIGHT WITHIN REACH
[2021-04-05] MEDS: PHENYLEPHRINE 100 MG in IV NS 0.9% 240 ML IV PRN (12:55)
--- NOTE | 2021-04-05 14:45 | NUR ---
ICU/PERFORMANCE IMPROVEMENT MANAGER PT REMAINS SOMEWHAT CONFUSED, AND COMBATIVE. TRIED TO GIVE ORT TO PERSON, PLACE, AND TIME. PT CONTINUES TO YELL AT STAFF . WILL MONITOR THIS PT.
[2021-04-05] MEDS: CEFTRIAXONE 1 G in IV D5W 50 ML IV SCH (16:40)
--- NOTE | 2021-04-05 19:42 | NUR ---
RN NOTE RECEIVED PATIENT IN BED, AWAKE, ALERT, AND VERBALLY RESPONSIVE. AOX3. ABLE TO MAKE NEEDS KNOWN. MILD SOB NOTED. INCREASED OXYGEN FROM 1L/MIN TO 5L/MIN VIA NASAL CANULA OXYGEN SATURATION WAS LOW 90'S. SATURATION AT THIS TIME IS 98 PERCENT. HOB ELEVATED. SKIN WARM AND DRY. NOTED WITH LEFT UPPER ARM PICC LINE. NO INFILTRATION NOTED. NOTED WITH RIGHT UPPER CHEST PERMACATH. NO BLEEDING NOTED. DENIES FEELING PAIN AT THIS TIME. ALL BELONGINGS WITHIN REACH. BED LOW, IN LOCKED POSITION. CALL LIGHT WITHIN REACH.
[2021-04-05] MEDS: FAMOTIDINE (20 MG) 20 MG TABLET PO SCH (21:46)
[2021-04-05] MEDS: METOPROLOL TARTRATE 25 MG TABLET PO SCH (21:47)
--- NOTE | 2021-04-05 22:10 | NUR ---
RN NOTE DECREASED OXYGEN TO 3L/MIN VIA NASAL CANNULA. SATURATION OF 96-98 PERCENT AT THIS TIME. MILD SOB WHEN TALKING/EATING. HOB ELEVATED. WILL CONTINUE TO MONITOR. CALL LIGHT WITHIN REACH.
[2021-04-06] VITALS (50 sets, daily range): BP systolic 57–140; BP diastolic 22–87
--- NOTE | 2021-04-06 00:15 | NUR ---
RN NOTE PATIENT OXYGEN DECREASED TO 1L/MIN FROM 3L/MIN VIA NASAL CANNULA. TOLERATING WELL. OXYGEN SATURATION OF 95-98 PERCENT. HOB SEMI-NUNES PER PATIENT REQUEST. SLEEPING AT THIS TIME. WILL CONTINUE TO MONITOR. CALL LIGHT WITHIN REACH.
[2021-04-06 04:51] LABS: BASOPHILS % (AUTO) 0.6 % (0.0-2.0); HEMATOCRIT 26 % (33-45); HEMOGLOBIN 7.8 g/dL (11.5-14.8); LYMPHOCYTES # (AUTO) 0.6 K/uL (0.8-4.8); LYMPHOCYTES % (AUTO) 13.6 % (20.0-44.0); MEAN CORPUSCULAR HGB CONC 31 g/dl (31.0-36.0); MEAN CORPUSCULAR VOLUME 90 fL (82-100); MONOCYTES # (AUTO) 0.4 K/uL (0.1-1.30); MONOCYTES % (AUTO) 8.9 % (2.0-12.0); NEUTROPHILS # (AUTO) 3.2 K/uL (1.8-8.9); NEUTROPHILS % (AUTO) 75.9 % (43.0-81.0); PLATELET COUNT (AUTO) 87 K/uL (150-450); RED BLOOD CELL COUNT(AUTO) 2.84 MIL/uL (4.0-5.2); WHITE BLOOD COUNT (AUTO) 4.2 K/uL (4.3-11.0)
[2021-04-06 04:53] LABS: CALCIUM, SERUM 7.8 mg/dL (8.5-10.1); CARBON DIOXIDE 24 mmol/L (21-32); CHLORIDE 100 mmol/L (98-107); CREATININE 4.1 mg/dL (0.6-1.3); GLUCOSE 98 mg/dL (74-106); POTASSIUM 5.5 mmol/L (3.5-5.1); SODIUM SERUM 134 mmol/L (136-145); UREA NITROGEN, BLOOD 45 mg/dL (7-18)
--- NOTE | 2021-04-06 07:30 | NUR ---
RN MORNING NOTE PT RECEIVED SLEEPING IN BED WITH HOB SEMI FOWLERS. PT IS ON 5L O2 VIA NC SAT 96% TOLERATING WELL WITH NO SIGNS OF DISTRESS. PT IS A/OX4 AND ON TELE MONITOR ST 120HR. PT IS ALSO WEARING CARDIAC LIFE VEST ON AT THIS TIME. PT IS ANURIC AND IS SCHEDULED FOR HD TODAY. PT HAS L UA PICC AND RU CHEST PERM CATH. BED IS LOCKED IN LOWEST POSITION X2 GUARD RAILS UP, CALL LIGHT WITHIN REACH, WILL CONTINUE TO MONITOR THIS SHIFT.
--- NOTE | 2021-04-06 07:55 | NUR ---
WOUND CARE CONSULT: PT PRESENTS WITH SOME INCONTINENCE ASSOCIATED SKIN DAMAGE/EXCORIATION TO RT BUTTOCK. PT ABLE TO ASSIST WITH TURNING AND REPOSITIONING. RECOMMENDATIONS MADE FOR SKIN PROTECTION AND CARE. DISCUSSED WITH NURSING STAFF. IN AGREEMENT WITH PLAN OF CARE. CURRENT SHEREEN SCORE IS 14. Addendum: 04/06/21 at 0757 by JACK DURAN WNDNU Amended: Links added.
[2021-04-06] MEDS: NEPRO VAN 237 ML CAN PO SCH (08:40)
[2021-04-06] MEDS: LEVETIRACETAM (500MG) 500 MG in IV NS 0.9% 100 ML IV SCH (08:45)
[2021-04-06] MEDS: AMIODARONE HCL 200 MG TABLET PO SCH ×3 (08:54→17:00)
[2021-04-06] MEDS: GABAPENTIN 100 MG CAPSULE PO SCH (08:54)
[2021-04-06] MEDS: METOPROLOL TARTRATE 25 MG TABLET PO SCH ×2 (08:55→21:38)
[2021-04-06] MEDS: APIXABAN 2.5 MG TABLET PO SCH ×2 (08:56→17:52)
[2021-04-06] MEDS: CALCIUM ACETATE 667 MG CAP/TAB PO SCH ×3 (08:59→17:47)
[2021-04-06] MEDS: MIDODRINE HCL (5MG) 5 MG TABLET PO SCH ×3 (09:00→17:50)
[2021-04-06 09:25] LABS: ABG BASE EXCESS -3.7 mmol/L; ABG OXYGEN SATURATION 92.2 % (92.0-98.5); ABG PCO2 50.6 mmHg (35.0-45.0); ABG PH 7.277 (7.350-7.450); ABG PO2 72.2 mmHg (75.0-100.0); AaDO2 118.5 mmHg; COHb 1.2 % (0.5-1.5); MetHb 0.3 % (0.0-1.5); O2Hb 90.8 % (94.0-97.0); SITE, ABG Right Radial
[2021-04-06] MEDS: CITRIC ACID/SODIUM CITRATE (BICITRA)15 ML UDC PO SCH ×3 (13:30→20:46)
[2021-04-06] MEDS: ALBUMIN 25% 25 GM in PREMIX 1 EA IV PRN (14:10)
[2021-04-06] MEDS ORDERED: LEVETIRACETAM (250 MG) 250 MG TABLET PO PRN (17:00)
[2021-04-06] MEDS: CEFTRIAXONE 1 G in IV D5W 50 ML IV SCH (18:23)
--- NOTE | 2021-04-06 19:24 | NUR ---
RN CLOSING NOTE PT IS SITTING UP EATING DINNER IN BED WITH HOB HIGH FOWLERS. PT IS ON 2L O2 VIA NC SAT 96% TOLERATING WELL WITH NO SIGNS OF DISTRESS. PT IS A/OX4 AND ON TELE MONITOR SB 59HR. PT IS ALSO WEARING CARDIAC LIFE VEST ON AT THIS TIME. PT HAD HD TODAY AND 1.3L REMOVED, PT TOLERATED WELL. PT KEPPRA SWITCHED TO PO, TODAY. PT HAS L UA PICC AND RU CHEST PERM CATH. BED IS LOCKED IN LOWEST POSITION X2 GUARD RAILS UP, CALL LIGHT WITHIN REACH, WILL ENDORSE TO CERTIFIED ORTHOTIC FITTER NURSE FOR SARA.
--- NOTE | 2021-04-06 20:30 | NUR ---
ICU/BLACKSMITH ASSISTANT MD TAFOYA WAS HERE WROTE ORDERS TO HAVE 12 LEAD EKG AND ALSO FOR LOPRESSOR. WILL CONTINUE TO MONITOR THIS PT AND HER BP.
[2021-04-06] MEDS: LEVETIRACETAM (250 MG) 250 MG TABLET PO SCH (20:46)
--- NOTE | 2021-04-06 20:50 | NUR ---
ICU/LCN PT'S BLOOD PRESSURE IS 87/46 HELD THE LOPRESSOR DUE TO THE PARAMETERS. WILL CONTINUE TO MONITOR THIS PT AND HER BLOOD PRESSURE.
[2021-04-06] MEDS: FAMOTIDINE (20 MG) 20 MG TABLET PO SCH (21:21)
--- NOTE | 2021-04-06 23:47 | NUR ---
RT NOTE LATE ENTRY PT REFUSED BIPAP. PT AWAKE AND ALERT. PT SHOWS NO SIGNS OF RESP DISTRESS OR SOB. WILL CONTINUE TO MONITOR.
[2021-04-07] VITALS (37 sets, daily range): BP systolic 95–133; BP diastolic 38–90
--- NOTE | 2021-04-07 00:10 | NUR ---
ICU/LEGAL WRITING PROFESSOR LOPRESSOR WAS GIVEN FOR STABLE BP AND HEART RATE. WILL CONTINUE TO MONITOR HIS PT AND HER BP
--- NOTE | 2021-04-07 00:15 | NUR ---
ICU/TIGHT COOPER LOPRESSOR 12.5MG PO WAS GIVEN FOR SBP 110/62, HEART RATE 63. WILL CONTINUE TO MONITOR THIS PT AND HER BP.
[2021-04-07] MEDS: METOPROLOL TARTRATE 25 MG TABLET PO SCH ×4 (00:30→20:47)
[2021-04-07 05:04] LABS: BASOPHILS % (AUTO) 0.6 % (0.0-2.0); EOSINOPHILS % (AUTO) 1.4 % (0.0-6.0); HEMATOCRIT 25 % (33-45); HEMOGLOBIN 7.6 g/dL (11.5-14.8); LYMPHOCYTES # (AUTO) 0.6 K/uL (0.8-4.8); LYMPHOCYTES % (AUTO) 14.5 % (20.0-44.0); MEAN CORPUSCULAR HGB CONC 30 g/dl (31.0-36.0); MEAN CORPUSCULAR VOLUME 91 fL (82-100); MONOCYTES # (AUTO) 0.3 K/uL (0.1-1.30); MONOCYTES % (AUTO) 7.3 % (2.0-12.0); NEUTROPHILS # (AUTO) 3.1 K/uL (1.8-8.9); NEUTROPHILS % (AUTO) 76.2 % (43.0-81.0); PLATELET COUNT (AUTO) 86 K/uL (150-450); RED BLOOD CELL COUNT(AUTO) 2.77 MIL/uL (4.0-5.2); WHITE BLOOD COUNT (AUTO) 4.1 K/uL (4.3-11.0)
[2021-04-07 05:49] LABS: CALCIUM, SERUM 7.4 mg/dL (8.5-10.1); CARBON DIOXIDE 26 mmol/L (21-32); CHLORIDE 101 mmol/L (98-107); CREATININE 3.3 mg/dL (0.6-1.3); GLUCOSE 97 mg/dL (74-106); SODIUM SERUM 135 mmol/L (136-145); UREA NITROGEN, BLOOD 32 mg/dL (7-18)
[2021-04-07] MEDS: CITRIC ACID/SODIUM CITRATE (BICITRA)15 ML UDC PO SCH ×4 (08:14→20:46)
[2021-04-07] MEDS: AMIODARONE HCL 200 MG TABLET PO SCH ×3 (08:15→17:00)
[2021-04-07] MEDS: MIDODRINE HCL (5MG) 5 MG TABLET PO SCH ×3 (08:15→17:14)
[2021-04-07] MEDS: LEVETIRACETAM (250 MG) 250 MG TABLET PO SCH ×2 (08:15→20:47)
[2021-04-07] MEDS: CALCIUM ACETATE 667 MG CAP/TAB PO SCH ×3 (08:16→17:14)
[2021-04-07] MEDS: GABAPENTIN 100 MG CAPSULE PO SCH (08:16)
[2021-04-07] MEDS: NEPRO VAN 237 ML CAN PO SCH (08:18)
[2021-04-07] MEDS: APIXABAN 2.5 MG TABLET PO SCH ×2 (08:18→17:15)
[2021-04-07] MEDS ORDERED: TEMAZEPAM 15 MG CAPSULE PO PRN (14:30)
[2021-04-07] MEDS: CEFTRIAXONE 1 G in IV D5W 50 ML IV SCH (17:28)
--- NOTE | 2021-04-07 20:15 | NUR ---
ICU/DIGITAL CONTENT PRODUCER LIFE VEST BATTERY WAS REPLACED WITH CHARGED BATTERY. APPEARS TO BE WORKING. WILL CONTINUE TO MONITOR HIS PT.
--- NOTE | 2021-04-07 20:45 | NUR ---
ICU/TIMBER ROBBER PT APPEARS TO BE MORE ALTERED THAN USUALLY. PLACED O2 N/C ON FACE. WILL MONITOR THIS PT AND HER SATURATION.
[2021-04-07] MEDS: FAMOTIDINE (20 MG) 20 MG TABLET PO SCH (22:13)
--- NOTE | 2021-04-07 22:30 | NUR ---
ICU/LEAF CONDITIONER HELPER PICC LINE APPEARS TO BE BLOODY. DRESSING WAS CHANGED YESTERDAY. AND TODAY APPEARS TO BE SATURATED. THIS WAS REINFORCED AND WRAPPED. WILL MONITOR THE IV SITE
[2021-04-08] VITALS (43 sets, daily range): BP systolic 92–145; BP diastolic 46–98
--- NOTE | 2021-04-08 00:10 | NUR ---
ICU/ACADEMIC ASSOCIATE PT WAS PLACED ON BIPAP @2200 RATE 14, FIO2 30%, 15/5. WILL CONTINUE TO MONITOR THIS PT AND HER SATURATION. SO FAR PT APPEARS TO BE TOLERATING THE BIPAP WITHOUT TAKING IT OFF.
--- NOTE | 2021-04-08 02:16 | NUR ---
ICU/RADIOLOGIST PHYSICIAN DR BARNARD NOTES THAT POSSIBLE DOWNGRADE WITH THIS PT. WILL PASS ON TO NEXT SHIFT.
--- NOTE | 2021-04-08 02:39 | NUR ---
ICU/RETAIL STOCK CLERK PT TOOK OFF BIPAP, TRIED TO GET PT TO PUT THIS BACK ON, HOWEVER PT WOULD NOT HAVE IT. N/C 2 LITERS PLACED BACK ON THE PT. WILL CONTINUE TO MONITOR THIS PT.
[2021-04-08 05:21] LABS: BASOPHILS % (AUTO) 0.9 % (0.0-2.0); EOSINOPHILS % (AUTO) 1.7 % (0.0-6.0); HEMATOCRIT 26 % (33-45); HEMOGLOBIN 7.9 g/dL (11.5-14.8); LYMPHOCYTES # (AUTO) 0.8 K/uL (0.8-4.8); LYMPHOCYTES % (AUTO) 18.9 % (20.0-44.0); MEAN CORPUSCULAR HGB CONC 30 g/dl (31.0-36.0); MEAN CORPUSCULAR VOLUME 92 fL (82-100); MONOCYTES # (AUTO) 0.3 K/uL (0.1-1.30); MONOCYTES % (AUTO) 7.6 % (2.0-12.0); NEUTROPHILS % (AUTO) 70.9 % (43.0-81.0); PLATELET COUNT (AUTO) 91 K/uL (150-450); RED BLOOD CELL COUNT(AUTO) 2.85 MIL/uL (4.0-5.2); WHITE BLOOD COUNT (AUTO) 4.2 K/uL (4.3-11.0)
[2021-04-08 05:46] LABS: CALCIUM, SERUM 7.9 mg/dL (8.5-10.1); CARBON DIOXIDE 26 mmol/L (21-32); CHLORIDE 100 mmol/L (98-107); CREATININE 4.1 mg/dL (0.6-1.3); GLUCOSE 105 mg/dL (74-106); POTASSIUM 5.4 mmol/L (3.5-5.1); SODIUM SERUM 135 mmol/L (136-145); UREA NITROGEN, BLOOD 45 mg/dL (7-18)
--- NOTE | 2021-04-08 06:47 | NUR ---
ICU/LEHR LOADER 12 LEAD EKG SHOWS AFLUTTER. WILL PASS ON TO DAY SHIFT TO MAKE SURE THE LIFE VEST IS PROPERLY WORKING
--- NOTE | 2021-04-08 08:00 | NUR ---
RN NOTES RECEIVED PATIENT AT THIS TIME RESTING IN THE BED, A/O X3, ON NC- 2L- 98%. PATIENT REFUSED PAIN, VSS, HR -51 WITH ATRIAL FLATTER. DUE MEDICATION ADMINISTERED, PATIENT TOLERATED BREAKFAST SELF 40%. PATIENT ON HOLTER MONITOR. ASSIST PATIENT TURN AND REPOSTION IN THE BED, CALL LIGHT WITHIN TO REACH. IV ACCESS ON OLIVIER PICC LINE INTACT, HD CATH ON RIGHT UCW INTACT. GET ORDER FOR HEMODIALYZED TODAY VIA Dr LEBRON. CALL LIGHT WITHIN TO REACH. WILL FOLLOW UP.
[2021-04-08 08:49] LABS: ABG BASE EXCESS -2.9 mmol/L; ABG OXYGEN SATURATION 95.3 % (92.0-98.5); ABG PCO2 63.9 mmHg (35.0-45.0); ABG PH 7.214 (7.350-7.450); ABG PO2 91.1 mmHg (75.0-100.0); AaDO2 33.1 mmHg; MetHb 0.2 % (0.0-1.5); O2Hb 94.2 % (94.0-97.0); SITE, ABG Right Radial
[2021-04-08] MEDS: METOPROLOL TARTRATE 25 MG TABLET PO SCH ×2 (09:00→23:07)
[2021-04-08] MEDS: MIDODRINE HCL (5MG) 5 MG TABLET PO SCH ×3 (09:00→17:43)
[2021-04-08] MEDS: CALCIUM ACETATE 667 MG CAP/TAB PO SCH ×3 (09:39→17:39)
[2021-04-08] MEDS: NEPRO VAN 237 ML CAN PO SCH (09:40)
[2021-04-08] MEDS: CITRIC ACID/SODIUM CITRATE (BICITRA)15 ML UDC PO SCH ×4 (09:45→22:44)
[2021-04-08] MEDS: LEVETIRACETAM (250 MG) 250 MG TABLET PO SCH ×2 (09:45→22:43)
[2021-04-08] MEDS: GABAPENTIN 100 MG CAPSULE PO SCH (09:46)
[2021-04-08] MEDS: AMIODARONE HCL 200 MG TABLET PO SCH ×2 (09:47→12:37)
[2021-04-08] MEDS: APIXABAN 2.5 MG TABLET PO SCH ×2 (09:48→17:42)
--- NOTE | 2021-04-08 09:49 | NUR ---
RN NOTES HELD MECODRIN, AND METOPROLOL BECAUSE OF LOW BP 105/53, P-58.
--- NOTE | 2021-04-08 15:39 | NUR ---
RN NOTES SEEN PATIENT VIA HEALTH INFORMATION DIRECTOR Dr TAFOYA STOP CORDARONE AT THIS TIME,ONLY BETA FUNMILAYO LOW DOSE. ORDER TAKEN AND CARRIED OUT.
--- NOTE | 2021-04-08 18:30 | NUR ---
rn notes Patient stable on o2-2l, will going to get hemodialyses today, tolerated dinner will, self, due medication administered, patient refused pain, talking by phone. call light within to reach. endorsed oncoming nurse follow plan of care.
[2021-04-08 20:24] LABS: EOSINOPHILS % (MANUAL) 4 % (0-4); LYMPHOCYTES % (MANUAL) 19 % (16-48); MONOCYTES % (MANUAL) 10 % (0-11.0); NEUTROPHILS % (MANUAL) 67 (42-76)
[2021-04-08] MEDS: FAMOTIDINE (20 MG) 20 MG TABLET PO SCH (22:44)
[2021-04-09] VITALS (40 sets, daily range): BP systolic 104–150; BP diastolic 54–96
[2021-04-09 04:55] LABS: CALCIUM, SERUM 7.9 mg/dL (8.5-10.1); CARBON DIOXIDE 26 mmol/L (21-32); CHLORIDE 100 mmol/L (98-107); CREATININE 4.9 mg/dL (0.6-1.3); GLUCOSE 101 mg/dL (74-106); POTASSIUM 5.3 mmol/L (3.5-5.1); SODIUM SERUM 136 mmol/L (136-145); UREA NITROGEN, BLOOD 46 mg/dL (7-18)
[2021-04-09 05:05] LABS: BASOPHILS % (AUTO) 0.6 % (0.0-2.0); EOSINOPHILS % (AUTO) 1.9 % (0.0-6.0); HEMATOCRIT 26 % (33-45); HEMOGLOBIN 7.8 g/dL (11.5-14.8); LYMPHOCYTES # (AUTO) 0.7 K/uL (0.8-4.8); LYMPHOCYTES % (AUTO) 14.8 % (20.0-44.0); MEAN CORPUSCULAR HGB CONC 30 g/dl (31.0-36.0); MEAN CORPUSCULAR VOLUME 92 fL (82-100); MONOCYTES # (AUTO) 0.3 K/uL (0.1-1.30); MONOCYTES % (AUTO) 6.7 % (2.0-12.0); NEUTROPHILS # (AUTO) 3.4 K/uL (1.8-8.9); PLATELET COUNT (AUTO) 89 K/uL (150-450); WHITE BLOOD COUNT (AUTO) 4.4 K/uL (4.3-11.0)
--- NOTE | 2021-04-09 07:06 | NUR ---
CLINICAL RESEARCH MONITOR PT REMAINED ON BIPAP SINCE 2199
--- NOTE | 2021-04-09 08:00 | NUR ---
rn notes RECEIVED PATIENT A/O X3, ON NC- 2L- 98%. PATIENT REFUSED PAIN, VSS, T-96.4 F APPLIED NEHAL BUGGER, HR -51 WITH ATRIAL FLATTER. DUE MEDICATION ADMINISTERED, PATIENT TOLERATED BREAKFAST SELF 50%. IV ACCESS ON OLIVIER PICC LINE INTACT, HD CATH ON RIGHT UCW INTACT. HELD METOPROLOL BECAUSE OF LOW PULSE , CALL LIGHT WITHIN TO REACH. WILL FOLLOW UP.
[2021-04-09] MEDS: GABAPENTIN 100 MG CAPSULE PO SCH (08:18)
[2021-04-09] MEDS: CALCIUM ACETATE 667 MG CAP/TAB PO SCH ×3 (08:21→16:49)
[2021-04-09] MEDS: METOPROLOL TARTRATE 25 MG TABLET PO SCH ×3 (08:21→21:12)
[2021-04-09] MEDS: MIDODRINE HCL (5MG) 5 MG TABLET PO SCH ×3 (08:23→16:42)
[2021-04-09] MEDS: CITRIC ACID/SODIUM CITRATE (BICITRA)15 ML UDC PO SCH ×4 (08:23→21:11)
[2021-04-09] MEDS: NEPRO VAN 237 ML CAN PO SCH (08:24)
[2021-04-09] MEDS: LEVETIRACETAM (250 MG) 250 MG TABLET PO SCH ×2 (08:24→21:11)
[2021-04-09 09:57] LABS: ABG BASE EXCESS -1.7 mmol/L; ABG OXYGEN SATURATION 93.3 % (92.0-98.5); ABG PCO2 47.4 mmHg (35.0-45.0); ABG PH 7.328 (7.350-7.450); ABG PO2 69.8 mmHg (75.0-100.0); AaDO2 30.4 mmHg; COHb 1.3 % (0.5-1.5); MetHb 0.3 % (0.0-1.5); O2Hb 91.8 % (94.0-97.0); SITE, ABG Right Brachial; VENT MODE, BG NASAL CANNULA
[2021-04-09] MEDS: APIXABAN 2.5 MG TABLET PO SCH ×2 (10:31→16:43)
--- NOTE | 2021-04-09 12:00 | NUR ---
RN NOTES AFTER ABG RESULT PER Dr JESUS ORDER TITRATE O2-1L TO 1/2 L NC. PATIENT HAS NO SEIZURE DISORDER , GENERALIZED EDEMA, nocturnal BiPAP, minimize sedation with follow-up ABG in the next couple of days. Aggressive fluid removal as per hemodialysis rhythm control as per cardiology.
--- NOTE | 2021-04-09 18:30 | NUR ---
RN NOTES PATIENT INSIST TO GET OUT OF BED FOR BATHROOM, AND WALK, HIGH FALL RISK, EDUCATED, AND ENCOURAGED TO STAY IN THE BED. PM CARE DONE, FAMILY NEXT TO THE BED, DUE MEDICATION ADMINISTERED. PATIENT MINIMUM ASSIST TURN AND REPOSITION IN THE BED. SAFETY PRECAUTION MAINTAINED ALL THE TIME. CALL LIGHT WITHIN TO REACH. ENDORSED ONCOMING NURSE FOLLOW PLN OF CARE.
--- NOTE | 2021-04-09 19:00 | NUR ---
RN NOTE RECEIVED PATIENT IN BED, AO X 2, IN NO S/SX OF ACUTE DISTRESS AT THIS TIME. BREATHING EVEN AND UNLABORED, SATURATION AT 98% ON 1L VIA NC, A FLUTTER ON THE MONITOR, HR IS 117. NOTED OLIVIER PICC LINE, ALL HUBS PATENT AND FLUSHING WELL, AND PERMACATH AT R CHEST, NO S/S OF INFECTION. SAFETY MEASURES IMPLEMENTED. PATIENT BED ALARM IS ON. HEAD OF BED ELEVATED. BED IS LOCKED, IN LOWEST POSITION AND SIDE RAILS UP. CALL LIGHT WITHIN REACH OF THE PATIENT. WILL CONTINUE TO MONITOR AND REASSESS FOR ANY CHANGES.
[2021-04-09] MEDS: FAMOTIDINE (20 MG) 20 MG TABLET PO SCH (21:12)
[2021-04-09 21:43] LABS: EOSINOPHILS % (MANUAL) 2 % (0-4); LYMPHOCYTES % (MANUAL) 10 % (16-48); MONOCYTES % (MANUAL) 4 % (0-11.0); NEUTROPHILS % (MANUAL) 84 (42-76)
[2021-04-10] VITALS (52 sets, daily range): BP systolic 93–141; BP diastolic 33–94
[2021-04-10 06:18] LABS: BASOPHILS % (AUTO) 0.6 % (0.0-2.0); EOSINOPHILS % (AUTO) 1.1 % (0.0-6.0); HEMATOCRIT 26 % (33-45); LYMPHOCYTES # (AUTO) 0.8 K/uL (0.8-4.8); LYMPHOCYTES % (AUTO) 14.1 % (20.0-44.0); MEAN CORPUSCULAR HGB CONC 31 g/dl (31.0-36.0); MEAN CORPUSCULAR VOLUME 91 fL (82-100); MONOCYTES # (AUTO) 0.3 K/uL (0.1-1.30); MONOCYTES % (AUTO) 5.5 % (2.0-12.0); NEUTROPHILS # (AUTO) 4.4 K/uL (1.8-8.9); NEUTROPHILS % (AUTO) 78.7 % (43.0-81.0); PLATELET COUNT (AUTO) 95 K/uL (150-450); RED BLOOD CELL COUNT(AUTO) 2.79 MIL/uL (4.0-5.2); WHITE BLOOD COUNT (AUTO) 5.5 K/uL (4.3-11.0)
[2021-04-10 07:19] LABS: CALCIUM, SERUM 7.9 mg/dL (8.5-10.1); CARBON DIOXIDE 26 mmol/L (21-32); CHLORIDE 99 mmol/L (98-107); CREATININE 5.5 mg/dL (0.6-1.3); GLUCOSE 83 mg/dL (74-106); SODIUM SERUM 137 mmol/L (136-145); UREA NITROGEN, BLOOD 64 mg/dL (7-18)
--- NOTE | 2021-04-10 07:39 | NUR ---
RN MORNING NOTE PT RECEIVED SLEEPING IN BED WITH HOB SEMI FOWLERS AND ON NOCTURNAL BIPAP SAT 98% TOLERATING WELL WITH NO SIGNS OF DISTRESS. PT IS A/OX2 AND ON TELE MONITOR SB 59HR. PT IS ALSO WEARING CARDIAC LIFE VEST ON AT THIS TIME. PT IS ANURIC AND IS SCHEDULED FOR HD TODAY. PT HAS L UA PICC AND RU CHEST PERM CATH. BED IS LOCKED IN LOWEST POSITION X3 GUARD RAILS UP, CALL LIGHT WITHIN REACH, WILL CONTINUE TO MONITOR THIS SHIFT.
[2021-04-10] MEDS: NEPRO VAN 237 ML CAN PO SCH (08:06)
[2021-04-10] MEDS: APIXABAN 2.5 MG TABLET PO SCH (08:17)
[2021-04-10] MEDS: CITRIC ACID/SODIUM CITRATE (BICITRA)15 ML UDC PO SCH ×4 (08:26→21:47)
[2021-04-10] MEDS: GABAPENTIN 100 MG CAPSULE PO SCH (08:26)
[2021-04-10] MEDS: CALCIUM ACETATE 667 MG CAP/TAB PO SCH ×3 (08:26→17:48)
[2021-04-10] MEDS: LEVETIRACETAM (250 MG) 250 MG TABLET PO SCH ×2 (08:26→21:47)
[2021-04-10] MEDS: MIDODRINE HCL (5MG) 5 MG TABLET PO SCH ×3 (08:28→17:00)
[2021-04-10] MEDS: METOPROLOL TARTRATE 25 MG TABLET PO SCH ×2 (09:00→21:47)
[2021-04-10] MEDS: ALBUMIN 25% 25 GM in PREMIX 1 EA IV PRN (15:20)
--- NOTE | 2021-04-10 19:20 | NUR ---
RN CLOSING NOTE PT IS RESTING IN BED AFTER HD AND 2L WAS REMOVED WITH HOB SEMI FOWLERS. PT IS ON 4L O2 VIA NC SAT 96% TOLERATING WELL WITH NO SIGNS OF DISTRESS. PT IS A/OX2 AND ON TELE MONITOR SB 59HR. PT IS ALSO WEARING CARDIAC LIFE VEST ON AT THIS TIME. PT HAS L UA PICC AND RU CHEST PERM CATH. BED IS LOCKED IN LOWEST POSITION X3 GUARD RAILS UP, CALL LIGHT WITHIN REACH, WILL ENDORSE TO HOSPITAL MORTICIAN NURSE FOR SARA.
[2021-04-10] MEDS: FAMOTIDINE (20 MG) 20 MG TABLET PO SCH (21:46)
[2021-04-11] VITALS (15 sets, daily range): BP systolic 96–141; BP diastolic 48–97
--- NOTE | 2021-04-11 01:15 | NUR ---
RT NOTE PT OFF BIPAP AT THIS TIME. PT REFUSING. RN PRADIP @ BEDSIDE. NO SOB NOTED. PT TOLERATING 1 LPM NASAL CANNULA WELL. WILL CONTINUE TO MONITOR.
[2021-04-11 05:54] LABS: BASOPHILS % (AUTO) 0.9 % (0.0-2.0); EOSINOPHILS % (AUTO) 1.9 % (0.0-6.0); HEMATOCRIT 23 % (33-45); HEMOGLOBIN 7.2 g/dL (11.5-14.8); LYMPHOCYTES # (AUTO) 0.6 K/uL (0.8-4.8); LYMPHOCYTES % (AUTO) 14.5 % (20.0-44.0); MEAN CORPUSCULAR HGB CONC 31 g/dl (31.0-36.0); MEAN CORPUSCULAR VOLUME 91 fL (82-100); MONOCYTES # (AUTO) 0.2 K/uL (0.1-1.30); MONOCYTES % (AUTO) 5.7 % (2.0-12.0); PLATELET COUNT (AUTO) 79 K/uL (150-450); RED BLOOD CELL COUNT(AUTO) 2.53 MIL/uL (4.0-5.2); WHITE BLOOD COUNT (AUTO) 3.8 K/uL (4.3-11.0)
[2021-04-11 06:23] LABS: CALCIUM, SERUM 7.8 mg/dL (8.5-10.1); CARBON DIOXIDE 30 mmol/L (21-32); CHLORIDE 100 mmol/L (98-107); CREATININE 4.2 mg/dL (0.6-1.3); GLUCOSE 79 mg/dL (74-106); POTASSIUM 4.6 mmol/L (3.5-5.1); SODIUM SERUM 138 mmol/L (136-145); UREA NITROGEN, BLOOD 40 mg/dL (7-18)
[2021-04-11] MEDS ORDERED: ANESTHESIA TRAY IN PYXIS 1 EA TRAY MC ONE (06:53)
[2021-04-11] MEDS ORDERED: LIDOCAINE 1% INJ 50 ML MDV IJ ONE (06:53)
[2021-04-11] MEDS ORDERED: CLINDAMYCIN 900 MG/6 ML VIAL ONE (07:28)
[2021-04-11] MEDS ORDERED: FENTANYL PF 100MCG/2ML AMPUL ONE (07:28)
--- NOTE | 2021-04-11 07:30 | NUR ---
RN NOTES PT FOUND W/ OR TAKING HER FOR PROCEDURE. PT IS SUPINE DISPLAYING NO S/S OF ACUTE DISTRESS, PT ENDORSES NO PAIN AND IS BREATHING EVEN AND UNLABORED ON 2L O2 NC. PT REFUSES BIPAP. CHART SENT W/ PT, ALL CONSENTS SIGNED. PT LEFT ICU ON PORTABLE MONITOR W/ TWO OR NURSES.
[2021-04-11] MEDS: CALCIUM ACETATE 667 MG CAP/TAB PO SCH ×3 (08:00→18:19)
[2021-04-11] MEDS: NEPRO VAN 237 ML CAN PO SCH (08:00)
[2021-04-11] MEDS ORDERED: IOHEXOL 240MG/ML 50 ML IV ONE (08:36)
[2021-04-11] MEDS ORDERED: HEMOSTATIC MATRIX 8 ML 1 EACH PAD MC ONE (08:36)
[2021-04-11] MEDS: MIDODRINE HCL (5MG) 5 MG TABLET PO SCH ×3 (09:00→18:18)
[2021-04-11] MEDS: METOPROLOL TARTRATE 25 MG TABLET PO SCH ×2 (09:00→21:32)
[2021-04-11] MEDS: CITRIC ACID/SODIUM CITRATE (BICITRA)15 ML UDC PO SCH ×4 (09:00→21:31)
[2021-04-11] MEDS: LEVETIRACETAM (250 MG) 250 MG TABLET PO SCH ×2 (09:00→21:31)
[2021-04-11] MEDS: GABAPENTIN 100 MG CAPSULE PO SCH (09:00)
--- NOTE | 2021-04-11 09:50 | NUR ---
RN NOTE PT RETURNED FROM OR, PT IS LETHARGIC. VSS. R CHEST WALL DRESSING IS CLEAN, DRY AND FREE OF BLOOD. RN WILL MONITOR SITE FOR BLEEDING.
--- NOTE | 2021-04-11 10:55 | NUR ---
PLANT TECH NOTES RECEIVED PATIENT FROM ICU NURSE, PERLA. PATIENT WAS TRANSFERRED VIA BED, WITH EYES CLOSED, RESPONDS TO VERBAL AND PHYSICAL STIMULI. V/S WNL: TEMP 97.6, HR 63, RR 18, BP, 115/58, O2 SAT 98%. NO COMPLAINT OF PAIN VERBALIZED AT THIS TIME. PATIENT PLACED ON TELE MONITOR SHOWING SR V-PACING 63 BPM. NO S/SX OF RESPIRATORY DISTRESS WITH 4L OF O2 VIA NC. MECHANICAL SLING TO LEFT ARM PLACED ORDERED. WILL CONTINUE TO MONITOR PATIENT.
--- NOTE | 2021-04-11 11:50 | NUR ---
TRANSFER TO ANOTHER UNIT RN CALLED AND GAVE REPORT TO MISBAH HILTON. ALL QUESTIONS ANSWERED. PT TRANSPORTED VIA HOSPITAL BED ON MONITOR. NO COMPLICATIONS WHILE MOVING ACROSS HOSP. PT RECIEVED BY YOBANI, PT IS A&OX4, AWAKE BUT SLEEPY, BREATHING EVEN AND UNLABORED ON 4L O2 NC AND ENDORSING NO PAIN. NEITHER PERMACATH NOR NEWLY PLACED L CHESTALL PACEMAKER DRESSING HAVE ANY BLOOD, FLUID OR SUBSTANCE. SBAR, REPORT AND CHART GIVEN. PT ENDORSED IN STABLE CONDITION FOR SARA.
--- NOTE | 2021-04-11 15:25 | NUR ---
RICH spoke with pt.'s daughter, Darlin [[phone]]. Darlin will be picking up the advance directive packet, which is located in pt.s' chart.
--- NOTE | 2021-04-11 15:32 | NUR ---
RN NOTES SPOKE WITH PATIENT'S SON, DENISHA. HE WANTED UPDATES ON MOTHERS PROCEDURE. HAS SOME QUESTIONS REGARDING PACEMAKER PLACEMENT FOR COAL SAMPLER IN CHARGE. WILL CALL BACK IN THE MORNING FOR MORE UPDATES.
--- NOTE | 2021-04-11 18:00 | NUR ---
RN NOTES PATIENT REFUSES TO KEEP THE LEFT ARM SLING IN PLACE. PATIENT WAS EDUCATED ON IMPORTANCE OF SLING PLACEMENT. PATIENT CONTINUES TO REFUSE.
--- NOTE | 2021-04-11 19:30 | NUR ---
CAP BLOCKER OPENING NOTE RECEIVED PATIENT IN BED WITH EYES CLOSED. NO S/S OF APPARENT DISTRESS ON 4LPM O2 VIA NC. NO C/O PAIN AT THIS TIME. TELE MONITOR READING SR 72BPM. SLING NOTED ON L. ARM ON PATIENT. NO FLUIDS RUNNING AT THIS TIME. NO NEEDS AT THE MOMENT. WILL CONTINUE WITH PATIENT CARE PLAN.
--- NOTE | 2021-04-11 19:31 | NUR ---
HOISTING PILE DRIVING ENGINEER CLOSING NOTES PATIENT IN BED AWAKE WITH OCCASIONAL SLEEPINESS. A/O X3. NO COMPLAINT OF PAIN VERBALIZED AT THIS TIME. PATIENT PLACED ON TELE MONITOR SHOWING SR 65 BPM. NO S/SX OF RESPIRATORY DISTRESS WITH 4L OF O2 VIA NC. MECHANICAL SLING TO LEFT ARM PLACED ORDERED. PATIENT CONTINUES TO REMOVE SLING. WILL ENDORSE TO SAMPLE CASE PORTER NURSE FOR SARA.
--- NOTE | 2021-04-11 20:00 | NUR ---
INVENTORY ANALYST NOTE PEOPLESOFT CANNOT OBTAIN TEMPERATURE RIGHT NOW. PERSONALLY CHECKED PATIENT TEMPERATURE AND IT IS 93.9 AXILLARY AND DOES NOT READ ORALLY. PATIENT COOL TO TOUCH AT THE MOMENT BUT PER PATIENT SHE FEELS FINE RIGHT NOW. PATIENT SOMNOLENT--PATIENT DID HAVE PROCEDURE EARLIER TODAY ENDORSED TO ME. PATIENT REFUSES RECTAL TEMPERATURE CHECK FOR NOW. INITIATED WARMING MEASURES-- WARM BLANKETS. AND WILL CONTINUE TO MONITOR PATIENT.
[2021-04-11 21:14] LABS: EOSINOPHILS % (MANUAL) 1 % (0-4); LYMPHOCYTES % (MANUAL) 16 % (16-48); MONOCYTES % (MANUAL) 2 % (0-11.0); NEUTROPHILS % (MANUAL) 81 (42-76)
[2021-04-11] MEDS: FAMOTIDINE (20 MG) 20 MG TABLET PO SCH (21:33)
--- NOTE | 2021-04-12 01:48 | NUR ---
INFORMED BY RN THAT PT REMOVED BIPAP. DOESNT WANT TO GO BACK ON IT. PT PLACED BACK ON 4LNC.
--- NOTE | 2021-04-12 04:00 | NUR ---
RESPIRATORY CARE PRACTITIONER NOTE TEMPERATURE NOW AT 97.4. PATIENT MUCH MORE ALERT AND ORIENTED.
--- NOTE | 2021-04-12 07:06 | NUR ---
SURGERY CENTER ADMINISTRATOR CLOSING NOTE PATIENT IN BED WITH EYES CLOSED. A/OX2-3. SERIES OF FORGETFULNESS. NO S/S OF APPARENT DISTRESS ON 4LPM OF O2 VIA NC. TELE MONITOR READING V-PACING AND AT TIMES A-FIB. DENIES PAIN AT THIS TIME. ALL NEEDS ATTENDED. ALL SCHEDULED MEDICATION ADMINISTERED. SAFETY KEPT IN PLACE THE WHOLE SHIFT. WILL ENDORSE TO MORNING RN FOR CONTINUITY OF CARE.
--- NOTE | 2021-04-12 07:34 | NUR ---
GOVERNMENT SALES MANAGER OPENING NOTE PATIENT IN BED WITH EYES CLOSED, EASY TO AROUSE. A/OX2-3, WITH FORGETFULNESS. NO S/SX OF APPARENT DISTRESS. NO SOB. NO C/O PAIN. PT ON 4LPM OF O2 VIA NC. TELE MONITOR READING V-PACING AND AT TIMES A-FIB. IV ACCESS OLIVIER PICC LINE PATENT AND INTACT. SAFETY KEPT IN PLACE WITH BED LOCKED AND LOW POSITION. SIDE RAILS X 2 UP AT ALL TIMES. WILL MONITOR FOR ANY CHANGES IN CONDITION.
[2021-04-12 08:00] VITALS: BP 104/72
[2021-04-12] MEDS: NEPRO VAN 237 ML CAN PO SCH (08:44)
[2021-04-12] MEDS: CALCIUM ACETATE 667 MG CAP/TAB PO SCH ×3 (08:44→17:19)
[2021-04-12] MEDS: LEVETIRACETAM (250 MG) 250 MG TABLET PO SCH ×2 (08:45→20:52)
[2021-04-12] MEDS: CITRIC ACID/SODIUM CITRATE (BICITRA)15 ML UDC PO SCH ×4 (08:45→20:50)
[2021-04-12] MEDS: GABAPENTIN 100 MG CAPSULE PO SCH (08:45)
[2021-04-12] MEDS: METOPROLOL TARTRATE 25 MG TABLET PO SCH ×2 (08:45→20:51)
[2021-04-12] MEDS: MIDODRINE HCL (5MG) 5 MG TABLET PO SCH ×3 (08:45→16:45)
[2021-04-12 12:00] VITALS: BP 119/61
[2021-04-12] MEDS: ALBUMIN 25% 25 GM in PREMIX 1 EA IV PRN (15:30)
[2021-04-12 16:00] VITALS: BP 104/57
--- NOTE | 2021-04-12 19:30 | NUR ---
PHYSICAL TRAINER OPENING NOTE RECEIVED PT IN BED WITH EYES CLOSED, EASY TO AROUSE. A/OX2-3, WITH FORGETFULNESS. NO SOB OR S/S OF RESPIRATORY DISTRESS. PT ON 4LPM OF O2 VIA NC. TELE MONITOR READING V-PACING. IV ACCESS OLIVIER PICC LINE INTACT AND PATENT. SAFETY PRECAUTIONS IN PLACE. BED IN LOWEST LOCKED POSITION, HOB ELEVATED, SIDE RAILS UP X3, BED ALARM ON, AND CALL LIGHT AND TABLE WITHIN REACH. WILL CONTINUE WITH PLAN OF CARE.
--- NOTE | 2021-04-12 19:32 | NUR ---
MS RN CLOSING NOTES PT IN BED AWAKE. ALERT AND ORIENTED X4 . NO S/SX OF DISTRESS NOTED. NO SOB. BREATHING EVEN AND UNLABORED, TOLERATING WELL. ON 3 L NC SATURATING AT 97%. IV LHAND INTACT AND PATENT. SAFETY MEASURE IN PLACE WITH BED LOCKED AND IN LOWEST POSITION, SR UP X2, CALL LIGHT PLACED WITHIN EASY REACH. WILL ENDORSE CONTINUITY OF CARE TO ONCOMING SHIFT. Addendum: 04/12/21 at 1933 by ROBERTA HERNANDEZ RN JUKEBOX OPERATOR CLOSING NOTES PT IN BED AWAKE. ALERT AND ORIENTED X4 . NO S/SX OF DISTRESS NOTED. NO SOB. BREATHING EVEN AND UNLABORED, TOLERATING WELL. ON 3 L NC SATURATING AT 97%. IV LHAND INTACT AND PATENT. SAFETY MEASURE IN PLACE WITH BED LOCKED AND IN LOWEST POSITION, SR UP X2, CALL LIGHT PLACED WITHIN EASY REACH. WILL ENDORSE CONTINUITY OF CARE TO ONCOMING SHIFT.
[2021-04-12 20:00] VITALS: BP 142/76
[2021-04-12] MEDS: FAMOTIDINE (20 MG) 20 MG TABLET PO SCH (21:30)
--- NOTE | 2021-04-12 23:26 | NUR ---
PT IS AGITATED REMOVING NASAL CANNULA AND IS REFUSING BIPAP AT THIS TIME. RN NOTIFIED AND AWARE.
[2021-04-13] VITALS: BP 119/55
[2021-04-13 04:00] VITALS: BP 108/53
--- NOTE | 2021-04-13 07:00 | NUR ---
CAMERA TUNING ENGINEER CLOSING NOTE PT IN BED WITH EYES CLOSED, EASY TO AROUSE. A/OX2-3, WITH FORGETFULNESS. NO SOB OR S/S OF RESPIRATORY DISTRESS. PT ON 4LPM OF O2 VIA NC. TELE MONITOR READING V-PACING. IV ACCESS OLIVIER PICC LINE INTACT AND PATENT. ALL NEEDS MET AT THIS TIME. SAFETY PRECAUTIONS IN PLACE AT ALL TIMES. BED IN LOWEST LOCKED POSITION, HOB ELEVATED, SIDE RAILS UP X3, BED ALARM ON, AND CALL LIGHT AND TABLE WITHIN REACH. WILL ENDORSE TO ONCOMING NURSE FOR SARA.
--- NOTE | 2021-04-13 07:30 | NUR ---
ENGINEERING TEAM SUPERVISOR OPENING NOTES PATIENT IN BED WITH EYES CLOSED, EASY TO AWAKEN. A/OX2-3, WITH FORGETFULNESS. PATIENT IS ON 4LPM OF O2 VIA NC WITH NO S/SX OF RESPIRATORY DISTRESS NOTED. TELE MONITOR READING V-PACING. IV ACCESS L UA PICC LINE INTACT AND PATENT. SAFETY PRECAUTIONS IN PLACE: BED IN LOWEST POSITION, WHEELS ARE LOCKED, HOB ELEVATED, SIDE RAILS UP X3, BED ALARM ON, AND CALL LIGHT WITHIN REACH. WILL CONTINUE TO MONITOR PATIENT
[2021-04-13] MEDS: NEPRO VAN 237 ML CAN PO SCH (08:00)
[2021-04-13] MEDS: CITRIC ACID/SODIUM CITRATE (BICITRA)15 ML UDC PO SCH ×4 (08:37→21:24)
[2021-04-13] MEDS: GABAPENTIN 100 MG CAPSULE PO SCH (08:37)
[2021-04-13] MEDS: CALCIUM ACETATE 667 MG CAP/TAB PO SCH ×3 (08:37→17:21)
[2021-04-13] MEDS: LEVETIRACETAM (250 MG) 250 MG TABLET PO SCH ×2 (08:38→21:24)
[2021-04-13] MEDS: MIDODRINE HCL (5MG) 5 MG TABLET PO SCH ×3 (08:56→17:00)
[2021-04-13] MEDS: METOPROLOL TARTRATE 25 MG TABLET PO SCH ×2 (08:57→21:00)
--- NOTE | 2021-04-13 09:00 | NUR ---
RN NOTES PATIENT WAS D/C FROM TELE MONITOR PER DR. HERRERA ORDER. TRANSFERRED TO MED SURG.
--- NOTE | 2021-04-13 09:22 | NUR ---
RN NOTES HELD 0900 METOPROLOL MEDICATION FOR HEART RATE OF 62 AND BLOOD PRESSURE OF 91/49.
[2021-04-13 16:24] VITALS: BP 127/56
--- NOTE | 2021-04-13 17:15 | NUR ---
RN NOTES 1700 MIDODRINE MEDICATION HELD PER MD ORDER. SBP IS 127.
--- NOTE | 2021-04-13 19:16 | NUR ---
RN CLOSING NOTES PATIENT IN BED WITH EYES CLOSED, EASY TO AWAKEN. A/OX2-3, WITH FORGETFULNESS. PATIENT IS ON 4LPM OF O2 VIA NC WITH NO S/SX OF RESPIRATORY DISTRESS NOTED. TELE MONITOR NO LONGER IN PLACE. PATIENT TRANSFERRED TO SD. IV ACCESS L UA PICC LINE INTACT AND PATENT. ALL NEEDS MET AT THIS TIME. SAFETY PRECAUTIONS IN PLACE: BED IN LOWEST POSITION, WHEELS LOCKED, HOB ELEVATED, SIDE RAILS UP X3, BED ALARM ON, AND CALL LIGHT AND TABLE WITHIN REACH. WILL ENDORSE TO ONCOMING NURSE FOR SARA.
--- NOTE | 2021-04-13 19:28 | NUR ---
RN OPENING NOTES PATIENT IN BED WITH EYES CLOSED, EASY TO AWAKEN. A/OX2-3, WITH FORGETFULNESS. PATIENT IS ON 4LPM OF O2 VIA NC WITH NO S/SX OF RESPIRATORY DISTRESS NOTED. IV ACCESS OLIVIER PICC LINE INTACT AND PATENT. ALL NEEDS MET AT THIS TIME. SAFETY PRECAUTIONS IN PLACE: BED IN LOWEST POSITION, WHEELS LOCKED, HOB ELEVATED, SIDE RAILS UP X3, BED ALARM ON, AND CALL LIGHT AND TABLE WITHIN REACH. WILL CONTINUE TO MONITOR.
--- NOTE | 2021-04-13 21:00 | NUR ---
RT NOTE PATIENT IS REFUSING TO WEAR BIPAP AT THIS TIME. EXPLAINED BENEFITS OF BIPAP TO PATIENT BUT PATIENT STILL REFUSING. PATIENT IS STABLE ON NASAL CANNULA AT THIS TIME. PRIMARY NURSE NOTIFIED AND IS AWARE. WILL CONTINUE TO MONITOR PATIENT.
[2021-04-13] MEDS: FAMOTIDINE (20 MG) 20 MG TABLET PO SCH (21:24)
[2021-04-14] VITALS (23 sets, daily range): BP systolic 85–135; BP diastolic 49–78
--- NOTE | 2021-04-14 06:44 | NUR ---
RN CLOSING NOTES PATIENT IN BED WITH EYES CLOSED, EASY TO AWAKEN. A/OX2-3, WITH FORGETFULNESS. PATIENT IS ON 3LPM OF O2 VIA NC WITH NO S/SX OF RESPIRATORY DISTRESS NOTED PT NEESD TO BE CONSTANTLY REMINDED TO PUT ON OXYGEN SHE KEEP REMOVING IT . IV ACCESS OLIVIER PICC LINE INTACT AND PATENT. ALL NEEDS MET AT THIS TIME. SAFETY PRECAUTIONS IN PLACE: BED IN LOWEST POSITION, WHEELS LOCKED, HOB ELEVATED, SIDE RAILS UP X3, BED ALARM ON, AND CALL LIGHT AND TABLE WITHIN REACH. WILL ENDORSE CARE.
[2021-04-14 07:13] LABS: BASOPHILS % (AUTO) 0.5 % (0.0-2.0); EOSINOPHILS % (AUTO) 0.9 % (0.0-6.0); HEMATOCRIT 24 % (33-45); HEMOGLOBIN 7.3 g/dL (11.5-14.8); LYMPHOCYTES # (AUTO) 0.6 K/uL (0.8-4.8); MEAN CORPUSCULAR HGB CONC 30 g/dl (31.0-36.0); MEAN CORPUSCULAR VOLUME 94 fL (82-100); MONOCYTES # (AUTO) 0.3 K/uL (0.1-1.30); NEUTROPHILS # (AUTO) 3.4 K/uL (1.8-8.9); NEUTROPHILS % (AUTO) 78.6 % (43.0-81.0); PLATELET COUNT (AUTO) 67 K/uL (150-450); RED BLOOD CELL COUNT(AUTO) 2.55 MIL/uL (4.0-5.2); WHITE BLOOD COUNT (AUTO) 4.3 K/uL (4.3-11.0)
--- NOTE | 2021-04-14 07:30 | NUR ---
RN OPENING NOTES RECEIVED PATIENT ON BED, RESTING AND A/OX2-3, WITH FORGETFULNESS. PATIENT IS ON 3LPM OF O2 VIA NC WITH NO S/SX OF RESPIRATORY DISTRESS NOTED. WITH IV ACCESS AT OLIVIER PICC LINE INTACT AND PATENT. SAFETY MEASURES IN PLACE: BED IN LOWEST POSITION, WHEELS LOCKED, HOB ELEVATED, SIDE RAILS UP X3, BED ALARM ON, AND CALL LIGHT AND TABLE WITHIN REACH. WILL CONTINUE TO MONITOR.
[2021-04-14 07:43] LABS: CARBON DIOXIDE 27 mmol/L (21-32); CHLORIDE 101 mmol/L (98-107); GLUCOSE 100 mg/dL (74-106); MAGNESIUM 2.3 mg/dL (1.8-2.4); PHOSPHORUS 5.1 mg/dL (2.5-4.9); POTASSIUM 5.2 mmol/L (3.5-5.1); SODIUM SERUM 140 mmol/L (136-145); UREA NITROGEN, BLOOD 46 mg/dL (7-18)
[2021-04-14] MEDS: NEPRO VAN 237 ML CAN PO SCH (08:00)
--- NOTE | 2021-04-14 08:15 | NUR ---
RN NOTES PATIENT WAS FOUND ON BED UNRESPONSIVE. STARTED CPR AND CALLED CODE INOCENCIO.
--- NOTE | 2021-04-14 08:25 | NUR ---
@ 0825 pt intubated by VIRGINIA WINSTON during CPR with 7.5 et tube secured @ 23 cm lipline. CO2 detector changed to yellow color with clear bilateral breath sounds post intubation. vent settings below as order: AC 14 VT 400 ML FIO2 60% PEEP +5 VENT PLUGGED INTO RED OUTLET WITH ALARMS ON AND FUNCTIONING. KITTYUBAG@ BEDSIDE Addendum: 04/14/21 at 0920 by KEEGAN RUDOLPH RT Amended: Links added.
--- NOTE | 2021-04-14 08:34 | NUR ---
RN NOTES CODE ENDED. BP-131/71. PATIENT WAS INTUBATED AND GIVEN MEDS FOR RESUSCITATION. PATIENT TRANSPORTED TO ICU. PLEASE SEE CODE NOTES FOR CODE DETAILS.
--- NOTE | 2021-04-14 08:34 | NUR ---
RN NOTES PATIENT WAS FOUND BY MINISTERIO MIRANDA PATIENT UNRESPONSIVE ON HIGH NUNES'S POSITION PREPARED FOR BREAKFAST AT 0814. RUBEN REPORTED TO HAVE THE PATIENT CHECKED AND FOUND PATIENT UNRESPONSIVE AND PULSELESS. CPR STARTED AT 0815. CALLED FOR SHELLIE PAINTER. BLOOD SUGAR CHECKED:152. ACLS PROTOCOLS FOLLOWED. MEDS GIVEN. PATIENT GOT INTUBATED. CHECKED BP AT 0830 AT 131/71. TRANSPORTED PATIENT TO ICU AND GIVEN REPORT TO MISBAH TSANG. FOR MORE DETAILED INFORMATION, PLEASE SEE SHELLIE PAINTER REPORT SHEET.
--- NOTE | 2021-04-14 08:35 | NUR ---
RN NOTE PT ARRIVED IN UNIT FROM [facility] FOR [facility]. RECEIVED REPORT FROM RN.
[2021-04-14] MEDS: METOPROLOL TARTRATE 25 MG TABLET PO SCH ×2 (09:00→22:06)
[2021-04-14] MEDS: MIDODRINE HCL (5MG) 5 MG TABLET PO SCH ×3 (09:00→17:57)
[2021-04-14] MEDS ORDERED: AMIODARONE 450 MG in IV D5W 241 ML IV PRN (09:00)
[2021-04-14 09:03] LABS: LYMPHOCYTES % (MANUAL) 14 % (16-48); MONOCYTES % (MANUAL) 6 % (0-11.0); NEUTROPHILS % (MANUAL) 80 (42-76)
[2021-04-14] MEDS ORDERED: CALCIUM CHLORIDE 1,000 MG/10 ML DISP.SYRIN IV ONE (09:41)
[2021-04-14] MEDS ORDERED: EPINEPHRINE (1:10,000) SYRINGE 1 MG/10 ML DISP.SYRIN IVP ONE (09:41)
[2021-04-14] MEDS ORDERED: FEE EMEERGENCY 1 MIN EA MC ONE (09:41)
[2021-04-14] MEDS ORDERED: AMIODARONE 150 MG/3 ML VIAL IV ONE (09:41)
[2021-04-14] MEDS ORDERED: SODIUM BICARBONATE SYR 50 MEQ/50 ML DISP.SYRIN IV ONE (09:41)
[2021-04-14] MEDS ORDERED: LIDOCAINE 100MG/5ML DISP SYR IV ONE (09:41)
[2021-04-14 10:55] LABS: ABG BASE EXCESS -0.2 mmol/L; ABG OXYGEN SATURATION 98.8 % (92.0-98.5); ABG PH 7.345 (7.350-7.450); ABG PO2 163.2 mmHg (75.0-100.0); AaDO2 211.8 mmHg; COHb 1.1 % (0.5-1.5); MetHb 0.1 % (0.0-1.5); O2Hb 97.6 % (94.0-97.0); PEEP,BG 5 cm H2O; SITE, ABG Right Radial; VT, ABG 400 mL
--- NOTE | 2021-04-14 11:00 | NUR ---
FIO2 TITRATE DOWN FROM 60% TO 45% FIO2 DUE TO 100% SPO2 AND 163 PAO2. Addendum: 04/14/21 at 1102 by KEEGAN RUDOLPH RT Amended: Links added.
[2021-04-14] MEDS: CITRIC ACID/SODIUM CITRATE (BICITRA)15 ML UDC PO SCH ×4 (11:03→22:03)
[2021-04-14] MEDS: GABAPENTIN 100 MG CAPSULE PO SCH (11:03)
[2021-04-14] MEDS: CALCIUM ACETATE 667 MG CAP/TAB PO SCH ×3 (11:03→17:56)
[2021-04-14] MEDS: LEVETIRACETAM (250 MG) 250 MG TABLET PO SCH ×2 (11:03→22:03)
[2021-04-14] MEDS: LEVOFLOXACIN 500 MG /D5W 100ML 500 MG in PREMIX 1 EA IV SCH (12:27)
[2021-04-14] MEDS ORDERED: CLINDAMYCIN IV RTU IN D5W 600 MG/50 ML PIGGYBACK IV SCH (13:00)
[2021-04-14] MEDS: CLINDAMYCIN 600 MG in IV D5W 50 ML IV SCH ×2 (13:30→22:03)
[2021-04-14] MEDS: PROPOFOL 100 ML IV PRN (18:43)
--- NOTE | 2021-04-14 19:30 | NUR ---
RN NOTE RECEIVED PATIENT IN BED, SEDATED. INTUBATED. VENT SETTINGS OF AC:14, VT: 400, FIO2, 45%, AND PEEP OF 5.0. BREATHING EVEN AND UNLABORED, NO SOB NOTED. HOB ELEVATED 35 DEGREES. ON TELE MONITORING, SINUS RHYTHM AT THIS TIME. NOTED WITH OGT. SKIN WARM AND DRY. NOTED WITH NEHAL HUGGER. REMOVED PATIENT TEMPERATURE WAS 99.0. NOTED WITH LEFT UPPER ARM PICC LINE. RUNNING PROPOFOL AT 15 MCG/KG/MIN. NO INFILTRATION NOTED. NOTED WITH RIGHT UPPER CHEST HD ACCESS, NO BLEEDING, NOTED WITH LEFT UPPER CHEST PACEMAKER. BED LOW, IN LOCKED POSITION. CALL LIGHT WITHIN REACH.
--- NOTE | 2021-04-14 19:44 | NUR ---
RN NOTE PT STARTED ON PROPOFOL AT 5MCG AROUND 1650, PT WAS MILDLY AGITATED.
[2021-04-14] MEDS ORDERED: IV NS 0.9% 500 ML IV ONE (20:00)
--- NOTE | 2021-04-14 20:10 | NUR ---
RN NOTE PATIENT NOTED WITH DECREASED BLOOD PRESSURE. BLOOD PRESSURE OF 84/48, HEART RATE OF 76 BPM. PAGED , ANDNILESH. PER MD, START ONE TIME ORDER OF 500 ML NS AT 75 CC/HR, MAY INCREASE UP TO 100 CC/HR IF BLOOD PRESSURE TRENDS UPWARDS. NOTED AND CARRIED OUT. WILL CONTINUE TO MONITOR.
[2021-04-14] MEDS: FAMOTIDINE (20 MG) 20 MG TABLET PO SCH (22:03)
[2021-04-14] MEDS ORDERED: ACETAMINOPHEN 650 MG/20.3 ML UDC NG PRN (22:30)
--- NOTE | 2021-04-14 22:39 | NUR ---
RN NOTE PATIENT WITH EPISODE OF SEIZURE LIKE MOVEMENTS OF ABDOMEN AND BILATERAL LOWER EXTREMITIES. EXPLAINED ASSESSMENT TO NOE WINSTON. PER MD, DO CT OF THE HEAD WITHOUT CONTRAST IN AM. PATIENT ALSO NOTED WITH ELEVATED TEMPERATURE OF 99-100F. PER MD, TYLENOL 650 MG Q6 PRN. NOTED AND CARRIED OUT. INCREASED PROPOFOL NEEDED. WILL CONTINUE TO MONITOR.
[2021-04-15] VITALS (60 sets, daily range): BP systolic 69–142; BP diastolic 39–88
[2021-04-15] MEDS: PROPOFOL 100 ML IV PRN ×3 (03:01→18:37)
--- NOTE | 2021-04-15 04:00 | NUR ---
RN NOTE PATIENT NOTED WITH DECREASED BLOOD PRESSURE. NOTED WITH BLOOD PRESSURE OF 79/42 HR OF 63. CONTACTED JOSÉ MIGUEL WINSTON. PER MD, START ON NOREPINEPHRINE. NOTED AND CARRIED OUT.
[2021-04-15] MEDS ORDERED: NOREPINEPHRINE 8MG/250ML RTU 250 ML IV ONE (04:14)
[2021-04-15] MEDS: NOREPINEPHRINE 8 MG in IV NS 0.9% 242 ML IV PRN ×2 (04:17→22:39)
[2021-04-15] MEDS: CLINDAMYCIN 600 MG in IV D5W 50 ML IV SCH ×3 (05:07→21:29)
[2021-04-15 05:28] LABS: ABG BASE EXCESS 2.2 mmol/L; ABG PCO2 52.8 mmHg (35.0-45.0); ABG PH 7.347 (7.350-7.450); ABG PO2 115.5 mmHg (75.0-100.0); COHb 0.5 % (0.5-1.5); MetHb 0.1 % (0.0-1.5); O2Hb 97.1 % (94.0-97.0); PEEP,BG 5 cm H2O; SITE, ABG Left Radial; VENT MODE, BG AC14 400 40% PEEP+5; VT, ABG 400 mL
[2021-04-15 06:09] LABS: BASOPHILS % (AUTO) 0.6 % (0.0-2.0); EOSINOPHILS % (AUTO) 0.1 % (0.0-6.0); HEMATOCRIT 23 % (33-45); HEMOGLOBIN 7.1 g/dL (11.5-14.8); LYMPHOCYTES # (AUTO) 0.9 K/uL (0.8-4.8); LYMPHOCYTES % (AUTO) 10.1 % (20.0-44.0); MEAN CORPUSCULAR HGB CONC 31 g/dl (31.0-36.0); MEAN CORPUSCULAR VOLUME 93 fL (82-100); MONOCYTES # (AUTO) 0.4 K/uL (0.1-1.30); MONOCYTES % (AUTO) 4.6 % (2.0-12.0); NEUTROPHILS # (AUTO) 7.2 K/uL (1.8-8.9); NEUTROPHILS % (AUTO) 84.6 % (43.0-81.0); PLATELET COUNT (AUTO) 77 K/uL (150-450); RED BLOOD CELL COUNT(AUTO) 2.45 MIL/uL (4.0-5.2); WHITE BLOOD COUNT (AUTO) 8.5 K/uL (4.3-11.0)
[2021-04-15] MEDS: CALCIUM ACETATE 667 MG CAP/TAB PO SCH ×3 (08:00→16:42)
--- NOTE | 2021-04-15 08:00 | NUR ---
RN NOTES SEEN PATIENT ETT/VENT , TOLERATING WELL FIO2-45, PEEP 5, SEDATED DIPRIVAN 25MCG/KG/HR. ACCORDING NIGHT RN PATIENT SCHEDULED CT OF HEAD BECAUSE OF JERKY MOVEMENT. PATIENT NPO, OGT INTACT, INFUSING LEVOPHED 0.2 MCG/KG/HR, ON LEFT PICC LINE INTACT. ASSIST TURN AND REPOSTION Q 2 HR. SEEN PATIENT VIA REFINING STILL OPERATOR Dr LUGO, AWARE OF LAB VALUES, NO NEW ORDER. PATIENT HAS NEW PACEMAKER ON LEFT UPPER CHEST, AND HD CATH ON RUC INTACT, ASSIST TURN AND REPOSTION Q 2 HR. HAS EDEMA BILATERAL UPPER EXTREMITIES. WILL FOLLOW UP.
[2021-04-15 08:37] LABS: CALCIUM, SERUM 7.5 mg/dL (8.5-10.1); CARBON DIOXIDE 28 mmol/L (21-32); CHLORIDE 101 mmol/L (98-107); CREATININE 3.5 mg/dL (0.6-1.3); GLUCOSE 98 mg/dL (74-106); POTASSIUM 4.5 mmol/L (3.5-5.1); SODIUM SERUM 141 mmol/L (136-145); UREA NITROGEN, BLOOD 26 mg/dL (7-18)
[2021-04-15] MEDS: GABAPENTIN 100 MG CAPSULE PO SCH (09:00)
[2021-04-15] MEDS: CITRIC ACID/SODIUM CITRATE (BICITRA)15 ML UDC PO SCH ×4 (09:00→20:52)
[2021-04-15] MEDS: MIDODRINE HCL (5MG) 5 MG TABLET PO SCH ×3 (09:00→16:41)
--- NOTE | 2021-04-15 09:00 | NUR ---
RN NOTES SEEN PATIENT VIA ACCOUNT EXECUTIVE KEY ACCOUNTS DR BARNARD, AND NEW ORDER IS STOP SEDATION, FOR WEANING FROM THE VENT . ORDER TAKEN AND CARRIED OUT.
[2021-04-15] MEDS ORDERED: KEPPRA 500 MG in IV NS 100 ML IV PRN (09:30)
[2021-04-15] MEDS: LORAZEPAM INJ 2 MG/ML VIAL IV PRN (09:34)
--- NOTE | 2021-04-15 09:34 | NUR ---
rn notes administered Ativan 1 mg /ml iv push for seizing. bp 122/56, p-100, also started back sedation. will follow up.
[2021-04-15] MEDS: KEPPRA 500 MG in IV NS 100 ML IV SCH ×2 (10:01→20:53)
--- NOTE | 2021-04-15 10:01 | NUR ---
rn notes started Keppra infusion at 210ml/hr, on left picc lne intact, patient has no seizing . T-99.8F will follow up.
--- NOTE | 2021-04-15 13:45 | NUR ---
RN NOTES TAKEN PATIENT DOWN TO THE CT OF HEAD W/O CONTRAST AT TIS TIME.
--- NOTE | 2021-04-15 15:30 | NUR ---
RN NOTES RESTARTED LEVOPHED BACK BECAUSE OF LO BP 78/42, AM CARE DONE, SUCTION, MOUTH CARE DONE. GET RESULT OF CT OF HEAD: Mild white matter chronic small vessel ischemic change. 2. 2.1 cm calcified mass projects from the inner table of the right parietal calvarium. This may be a meningioma. FAMILY REQUEST TO SPEAK HOSPITALIST ABOUT PATIENT CONDITION., NOTIFIED JOSÉ MIGUEL RICHARDSON.
--- NOTE | 2021-04-15 18:30 | NUR ---
RN NOTES PATIENT STABLE NO ACUTE RESPIRATORY DISTRESS, NO SEIZURE , INFUSING DIPRIVAN 25MCG/KG/HR, AND LEVOPHED @0.05 MCG/KG/HR ON LEFT UA PICC LINE INTACT. ASSIST TURN AND REPOSTION, OGT INTACT, AND CLAMPED, PATIENT ANURIC, SCHEDULED HD TOMORROW, PATIENT NPO, HELD PO MEDICATION. SUCTION, MOUTH CARE DONE, ASSIST TURN AND REPOSTION Q 2 HR. ENDORSED ONCOMING NURSE FOLLOW PLAN OF CARE.
--- NOTE | 2021-04-15 19:47 | NUR ---
RN NOTE RECEIVED PATIENT IN BED, SEDATED. ET TUBE PRESENT. ON VENT WITH SETTINGS OF AC:14, VT: 500, FIO2: 45. PEEP: 5.0. TOLERATING WELL. NO SIGNS OF RESPIRATORY DISTRESS AT THIS TIME. BREATHING EVEN AND UNLABORED. SKIN WARM AND DRY. NOTED WITH OGT. MINIMAL RESIDUAL. NOTED WITH LEFT UPPER ARM PICC LINE, RUNNING LEVOPHED, AT 0.05 MCG, DIPRIVAN 25 MCG. NO INFILTRATION NOTED. ON TELE MONITORING, SINUS RHYTHM AT THIS TIME. NO BLEEDING NOTED AT THIS TIME. BED LOW, IN LOCKED POSITION. CALL LIGHT WITHIN REACH.
[2021-04-15] MEDS: FAMOTIDINE (20 MG) 20 MG TABLET PO SCH (21:02)
[2021-04-16] VITALS (80 sets, daily range): BP systolic 78–131; BP diastolic 38–89
[2021-04-16] MEDS: PROPOFOL 100 ML IV PRN ×3 (00:55→18:01)
[2021-04-16] MEDS: CLINDAMYCIN 600 MG in IV D5W 50 ML IV SCH ×3 (04:22→20:45)
[2021-04-16] MEDS: CALCIUM ACETATE 667 MG CAP/TAB PO SCH ×3 (07:35→16:34)
[2021-04-16] MEDS: GABAPENTIN 100 MG CAPSULE PO SCH (07:35)
[2021-04-16] MEDS: CITRIC ACID/SODIUM CITRATE (BICITRA)15 ML UDC PO SCH ×4 (07:35→21:33)
[2021-04-16] MEDS: MIDODRINE HCL (5MG) 5 MG TABLET PO SCH ×3 (07:36→16:34)
[2021-04-16 07:39] LABS: ABG OXYGEN SATURATION 93.3 % (92.0-98.5); ABG PCO2 48.3 mmHg (35.0-45.0); ABG PH 7.374 (7.350-7.450); AaDO2 86.2 mmHg; MetHb 0.1 % (0.0-1.5); O2Hb 92.3 % (94.0-97.0); PEEP,BG 5 cm H2O; SITE, ABG Right Radial; VT, ABG 400 mL
[2021-04-16 07:56] LABS: CALCIUM, SERUM 7.6 mg/dL (8.5-10.1); CARBON DIOXIDE 27 mmol/L (21-32); CHLORIDE 100 mmol/L (98-107); CREATININE 4.5 mg/dL (0.6-1.3); GLUCOSE 93 mg/dL (74-106); POTASSIUM 4.6 mmol/L (3.5-5.1); SODIUM SERUM 140 mmol/L (136-145); UREA NITROGEN, BLOOD 35 mg/dL (7-18)
[2021-04-16] MEDS: KEPPRA 500 MG in IV NS 100 ML IV SCH ×2 (08:00→21:33)
--- NOTE | 2021-04-16 08:00 | NUR ---
rn notes received patient Ett/vent no acute respiratory distress , no seizure, fio2-29, peep-5, tolerating well, patient sedated with Diprivan 25mcg/kg/hr, Levophed 0.04 mcg/kg/hr, hr-65. seen patient via Dr Velasquez, new order stop sedation, infusing Keppra. also start feeding Jevity 20ml/hr order taken and carried out.
[2021-04-16] MEDS: LORAZEPAM INJ 2 MG/ML VIAL IV PRN (09:22)
--- NOTE | 2021-04-16 09:22 | NUR ---
rn notes patient seizing again administered Ativan 1 mg/ml iv push, and restarted sedation Diprivan 5 mcg.kg/hr. will follow up.
--- NOTE | 2021-04-16 09:58 | NUR ---
rn notes collected MRSA of nares both nares at this time. notified lab to pepper picker.
--- NOTE | 2021-04-16 12:18 | NUR ---
rn notes patient getting hemodialysis at this time.
[2021-04-16] MEDS: LEVOFLOXACIN 500 MG /D5W 100ML 500 MG in PREMIX 1 EA IV SCH (12:33)
[2021-04-16] MEDS: JEVITY 1.2 CAL 1,000 ML BOTTLE GT PRN (12:52)
--- NOTE | 2021-04-16 13:03 | NUR ---
rn notes started OGT feeding @20ml/hr, no residual.
--- NOTE | 2021-04-16 14:00 | NUR ---
RN NOTES HD FINISHED AT THIS TIME OUTPUT WAS 1750ML. VSS. WILL MONITORING.
[2021-04-16] MEDS ORDERED: LEVETIRACETAM SOL (5 ML) 100 MG/ML UDC GT PRN (15:00)
--- NOTE | 2021-04-16 18:30 | NUR ---
RN NOTES PATIENT STABLE AT THIS TIME , DUE MEDICATION ADMINISTERED, NO ACUTE RESPIRATORY DISTRESS, VSS, ANJEL SEIZURE , ASSIST TURN AND REPOSTION Q 2 HR, RUNNING JEVITY 20ML/HR INTACT, PATIENT SEDATED DIPRIVAN 25MCG/KG/HR, ALSO INFUSING LEVOPHED 0.04 MCG/KG/HR ON LEFT PICC LINE INTACT. PATIENT ANURIC. ENDORSED ONCOMING NURSE SARA.
[2021-04-16] MEDS: IV NS 0.9% 250 ML IV PRN (18:45)
--- NOTE | 2021-04-16 19:35 | NUR ---
RN NOTE PT RECEIVED IN BED SEDATED. PT IS ON COLLEGE FOOTBALL COACH SHOWING A-FIB. RIGHT PERMACATH NOTED AND LEFT PACEMAKER NOTED. RUNNING JEVITY 20ML/HR, TOLERATING WELL WITH NO RESIDUAL NOTED. DIPRIVAN 25MCG/KG/HR ALSO RUNNING WELL LEVOPHED 0.04 MCG/KG/HR. ALL SAFETY MEASURES IMPLEMENTED. WILL CONTINUE TO MONITOR AND ASSESS FOR ANY CHANGES DURING SHIFT.
[2021-04-16] MEDS: FAMOTIDINE (20 MG) 20 MG TABLET PO SCH (21:33)
[2021-04-17] VITALS (86 sets, daily range): BP systolic 59–150; BP diastolic 31–88
[2021-04-17] MEDS: PROPOFOL 100 ML IV PRN (03:39)
[2021-04-17] MEDS: NOREPINEPHRINE 8 MG in IV NS 0.9% 242 ML IV PRN (05:14)
[2021-04-17] MEDS: CLINDAMYCIN 600 MG in IV D5W 50 ML IV SCH ×3 (05:54→21:05)
--- NOTE | 2021-04-17 07:59 | NUR ---
RN NOTE NO SIGNIFCANT CHANGES IN PT CONDITION DURING SHIFT. PT IS ON SOLUTIONS ARCHITECT CONSULTANT SHOWING A-FIB. PT CURRENTLY SEDATED. RIGHT PERMACATH NOTED AND LEFT PACEMAKER NOTED. RUNNING JEVITY 20ML/HR, TOLERATING WELL WITH NO RESIDUAL NOTED. DIPRIVAN 25MCG/KG/HR ALSO RUNNING WELL LEVOPHED 0.04 MCG/KG/HR. ALL DUE MEDS GIVEN ORDERED. PT KEPT CLEAN AND COMFORTABLE. ALL SAFETY MEASURES IMPLEMENTED. ENDORSED TO MORNING SHIFT RN FOR SARA.
[2021-04-17] MEDS: GABAPENTIN 100 MG CAPSULE PO SCH (08:28)
[2021-04-17] MEDS: CALCIUM ACETATE 667 MG CAP/TAB PO SCH ×3 (08:28→17:11)
[2021-04-17] MEDS: MIDODRINE HCL (5MG) 5 MG TABLET PO SCH ×3 (08:29→17:00)
[2021-04-17] MEDS: CITRIC ACID/SODIUM CITRATE (BICITRA)15 ML UDC PO SCH ×4 (08:29→21:06)
--- NOTE | 2021-04-17 08:30 | NUR ---
RN NOTE MIDODRINE HELD FOR BP 127/67
[2021-04-17 08:34] LABS: ABG BASE EXCESS 2.5 mmol/L; ABG PCO2 44.7 mmHg (35.0-45.0); ABG PH 7.407 (7.350-7.450); ABG PO2 79.6 mmHg (75.0-100.0); COHb 0.4 % (0.5-1.5); MetHb 0.4 % (0.0-1.5); O2Hb 94.6 % (94.0-97.0); SITE, ABG Left Radial; VENT MODE, BG AC 14 400 30% +5
[2021-04-17] MEDS: KEPPRA 500 MG in IV NS 100 ML IV SCH (09:28)
[2021-04-17 10:49] LABS: CALCIUM, SERUM 7.6 mg/dL (8.5-10.1); CARBON DIOXIDE 28 mmol/L (21-32); CHLORIDE 101 mmol/L (98-107); CREATININE 3.4 mg/dL (0.6-1.3); GLUCOSE 108 mg/dL (74-106); POTASSIUM 4.4 mmol/L (3.5-5.1); SODIUM SERUM 138 mmol/L (136-145); UREA NITROGEN, BLOOD 24 mg/dL (7-18)
--- NOTE | 2021-04-17 19:25 | NUR ---
RN NOTE PT RECEIVED IN BED, SEDATED. PT IS ON VENT TOLERATING CURRENT SETTINGS WELL. PT ON MACHINE STACKER SHOWING A-FIB. LEFT UPPER ARM PICC LINE NOTED. LINE FLUSHED, PATENT, AND INTACT WITH NO SIGNS OF INFILTRATION. RIGHT PERMACATH AND LEFT PACEMAKER NOTED. LEVOPHED CURRENTLY RUNNING AT 0.1 MCG/KG/HR. G-TUBE INTACT RUNNING JEVITY AT 20 ML/HR, TOLERATING WELL WITH NO RESIDUAL NOTED. ALL SAFETY MEASURES IMPLEMENTED. WILL CONTINUE TO MONITOR AND ASSESS FOR ANY CHANGES DURING SHIFT.
[2021-04-17] MEDS: FAMOTIDINE (20 MG) 20 MG TABLET PO SCH (21:06)
[2021-04-17] MEDS: LEVETIRACETAM SOL (5 ML) 100 MG/ML UDC GT SCH (21:06)
[2021-04-18] VITALS (65 sets, daily range): BP systolic 88–144; BP diastolic 40–89
[2021-04-18] MEDS: NOREPINEPHRINE 8 MG in IV NS 0.9% 242 ML IV PRN (03:01)
[2021-04-18] MEDS: CLINDAMYCIN 600 MG in IV D5W 50 ML IV SCH ×3 (05:14→21:34)
[2021-04-18 05:34] LABS: BASOPHILS % (AUTO) 0.6 % (0.0-2.0); HEMATOCRIT 23 % (33-45); HEMOGLOBIN 7.2 g/dL (11.5-14.8); LYMPHOCYTES # (AUTO) 0.6 K/uL (0.8-4.8); LYMPHOCYTES % (AUTO) 15.4 % (20.0-44.0); MEAN CORPUSCULAR HGB CONC 32 g/dl (31.0-36.0); MEAN CORPUSCULAR VOLUME 91 fL (82-100); MONOCYTES # (AUTO) 0.4 K/uL (0.1-1.30); MONOCYTES % (AUTO) 9.1 % (2.0-12.0); NEUTROPHILS # (AUTO) 2.9 K/uL (1.8-8.9); NEUTROPHILS % (AUTO) 73.9 % (43.0-81.0); PLATELET COUNT (AUTO) 95 K/uL (150-450); RED BLOOD CELL COUNT(AUTO) 2.51 MIL/uL (4.0-5.2); WHITE BLOOD COUNT (AUTO) 3.9 K/uL (4.3-11.0)
[2021-04-18 05:48] LABS: CALCIUM, SERUM 7.9 mg/dL (8.5-10.1); CARBON DIOXIDE 29 mmol/L (21-32); CHLORIDE 100 mmol/L (98-107); CREATININE 4.1 mg/dL (0.6-1.3); GLUCOSE 98 mg/dL (74-106); MAGNESIUM 2.1 mg/dL (1.8-2.4); PHOSPHORUS 4.8 mg/dL (2.5-4.9); POTASSIUM 4.7 mmol/L (3.5-5.1); SODIUM SERUM 137 mmol/L (136-145); UREA NITROGEN, BLOOD 30 mg/dL (7-18)
--- NOTE | 2021-04-18 07:09 | NUR ---
RN NOTE PATIENT IS IN BED WITH HOB AT SEMI FOWLERS POSITION. PATIENT IS ON TRACH/VENT WITH NO SIGNS OF LABORED BREATHING. PATIENT IS AOX0. OLIVIER PICC IS PATENT AND INTACT. BED IS LOCKED IN THE LOWEST POSITION, 3 GUARD RAILS RAISED, CALL WESLEY WITHIN REACH, AND ALL HOSPITAL SAFETY PRECAUTIONS ARE BEING FOLLOWED. WILL CONTINUE TO MONITOR THROUGHOUT SHIFT.
--- NOTE | 2021-04-18 07:25 | NUR ---
RN NOTE NO CHANGES IN PT CONDITION DURING SHIFT. PT IS ON VENT TOLERATING CURRENT SETTINGS WELL, CURRENTLY SEDATED. PT ON DATA SYSTEMS MANAGER SHOWING A-FIB. LEFT UPPER ARM PICC LINE NOTED. LINE FLUSHED, PATENT, AND INTACT WITH NO SIGNS OF INFILTRATION. RIGHT PERMACATH AND LEFT PACEMAKER NOTED. LEVOPHED CURRENTLY RUNNING AT 0.06 MCG/KG/HR. G-TUBE INTACT RUNNING JEVITY AT 20 ML/HR, TOLERATING WELL WITH NO RESIDUAL NOTED. ALL DUE MEDS GIVEN ORDERED. PT KEPT CLEAN AND COMFORTABLE. ALL SAFETY MEASURES IMPLEMENTED. ENDORSED TO MORNING SHIFT RN FOR SARA.
[2021-04-18] MEDS: JEVITY 1.2 CAL 1,000 ML BOTTLE GT PRN (07:42)
[2021-04-18] MEDS: GABAPENTIN 100 MG CAPSULE PO SCH (08:06)
[2021-04-18] MEDS: LEVETIRACETAM SOL (5 ML) 100 MG/ML UDC GT SCH ×2 (08:06→21:33)
[2021-04-18] MEDS: CALCIUM ACETATE 667 MG CAP/TAB PO SCH ×3 (08:06→17:05)
[2021-04-18] MEDS: CITRIC ACID/SODIUM CITRATE (BICITRA)15 ML UDC PO SCH ×4 (08:06→21:32)
[2021-04-18] MEDS: MIDODRINE HCL (5MG) 5 MG TABLET PO SCH ×3 (08:07→17:05)
[2021-04-18] MEDS: LEVOFLOXACIN 500 MG /D5W 100ML 500 MG in PREMIX 1 EA IV SCH (11:01)
[2021-04-18 12:21] LABS: LYMPHOCYTES % (MANUAL) 15 % (16-48); MONOCYTES % (MANUAL) 5 % (0-11.0); NEUTROPHILS % (MANUAL) 80 (42-76)
--- NOTE | 2021-04-18 18:45 | NUR ---
RN NOTE PATIENT IS IN BED WITH HOB AT SEMI FOWLERS POSITION. PATIENT IS ON TRACH/VENT WITH NO SIGNS OF LABORED BREATHING. PATIENT IS AOX0. OLIVIER PICC IS PATENT AND INTACT. BED IS LOCKED IN THE LOWEST POSITION, 3 GUARD RAILS RAISED, CALL WESLEY WITHIN REACH, AND ALL HOSPITAL SAFETY PRECAUTIONS ARE BEING FOLLOWED. ALL DUE MEDS GIVEN AND PATIENT REMAINED STABLE THROUGHOUT SHIFT. WILL ENDORSE TO BIOCHEMISTRY TECHNOLOGIST RN.
--- NOTE | 2021-04-18 19:40 | NUR ---
Received patient orally intubated with 7.5 ETT secured at 23cm lip line on vent with the settings of AC 14 400 30% +5. Increased FIO2 to 40% due to episodes of desaturation. Suctioned small amount of frothy yellow secretions. Vent plugged into red outlet, alarms on and audible. Ambu bag at bedside. No respiratory distress at this time. Will continue to monitor patient throughout shift.
--- NOTE | 2021-04-18 20:29 | NUR ---
ICU/BOXING PROMOTER LOW SATURATION IN THE 88-89% WHILE INTUBATED. NOTIFED RT WHO THEN INCREASED THE FIO2 TO 40% FROM 30. SATURATION THEN INCREASED TO 93%. WILL CONTINUE TO MONITOR THIS PT.
--- NOTE | 2021-04-18 21:30 | NUR ---
ICU/TOP STOP ATTACHER PT WAS VERY AGITATED, STARTED SEDATION OF DIPRIVAN 5MCG BY RB CHARGE NURSE. WILL CONTINUE TO MONITOR THIS PT. PT WAS TURNED AND REPOSITIONED FOR COMFORT AND CARE.
[2021-04-18] MEDS: FAMOTIDINE (20 MG) 20 MG TABLET PO SCH (21:33)
[2021-04-18] MEDS: PROPOFOL 100 ML IV PRN (21:42)
[2021-04-19] VITALS (45 sets, daily range): BP systolic 97–128; BP diastolic 46–73
[2021-04-19] MEDS: CLINDAMYCIN 600 MG in IV D5W 50 ML IV SCH ×3 (04:29→21:21)
--- NOTE | 2021-04-19 04:30 | NUR ---
ICU/TEST AUTOMATION ARCHITECT PT WAS VERY AGITATED, NOTIFED THE CHARGE NURSE WHO THEN INCREASED THE SEDATION TO 10MCG FROM 5MCG. WILL MONITOR THIS PT.
--- NOTE | 2021-04-19 05:30 | NUR ---
ICU/AUTO BODY PAINTER PT WAS VERY AGITATED, NOTIFED THE CHARGE NURSE WHO THEN INCREASED THE SEDATION TO 15MCG FROM 10. WILL MONITOR THIS PT.
[2021-04-19 06:08] LABS: BASOPHILS % (AUTO) 0.5 % (0.0-2.0); EOSINOPHILS % (AUTO) 0.8 % (0.0-6.0); HEMATOCRIT 21 % (33-45); LYMPHOCYTES # (AUTO) 0.6 K/uL (0.8-4.8); LYMPHOCYTES % (AUTO) 14.3 % (20.0-44.0); MEAN CORPUSCULAR HGB CONC 32 g/dl (31.0-36.0); MEAN CORPUSCULAR VOLUME 91 fL (82-100); MONOCYTES # (AUTO) 0.8 K/uL (0.1-1.30); NEUTROPHILS # (AUTO) 2.8 K/uL (1.8-8.9); NEUTROPHILS % (AUTO) 66.4 % (43.0-81.0); PLATELET COUNT (AUTO) 86 K/uL (150-450); RED BLOOD CELL COUNT(AUTO) 2.26 MIL/uL (4.0-5.2); WHITE BLOOD COUNT (AUTO) 4.2 K/uL (4.3-11.0)
[2021-04-19 06:22] LABS: CALCIUM, SERUM 7.8 mg/dL (8.5-10.1); CARBON DIOXIDE 30 mmol/L (21-32); CHLORIDE 101 mmol/L (98-107); CREATININE 3.1 mg/dL (0.6-1.3); GLUCOSE 96 mg/dL (74-106); PHOSPHORUS 4.3 mg/dL (2.5-4.9); POTASSIUM 4.3 mmol/L (3.5-5.1); SODIUM SERUM 138 mmol/L (136-145); UREA NITROGEN, BLOOD 22 mg/dL (7-18)
[2021-04-19 06:23] LABS: HEMOGLOBIN 6.5 g/dL (11.5-14.8)
--- NOTE | 2021-04-19 06:37 | NUR ---
ICU/ASSISTANT PROFESSOR OF NURSING H/H WAS LOW AT 6.5 CALLED MD SAID TO TRANSFUSE 1UNIT PRBC. WILL PASS ON TO DAY SHIFT TO HAVE THIS DONE.
--- NOTE | 2021-04-19 07:05 | NUR ---
RN NOTES RECEIVED PT ON BED, INTUBATED AND SEDATED, ON DIPRIVAN AT 15 MCG/KG/MIN RUNNING, TOLERAING VENT SETTING WELL, O2 SAT WNL, TF AT 20CC/HR RUNNING , NO RESIDUAL NOTED , SR UP x3, CALL LIGHT WITHIN EASY EACH, BED LOCKED AND IN LOWEST POSITION, CONTINUE TO MONITOR .
[2021-04-19] MEDS: CITRIC ACID/SODIUM CITRATE (BICITRA)15 ML UDC PO SCH ×4 (08:20→21:24)
[2021-04-19] MEDS: LEVETIRACETAM SOL (5 ML) 100 MG/ML UDC GT SCH ×2 (08:20→21:24)
[2021-04-19] MEDS: GABAPENTIN 100 MG CAPSULE PO SCH (08:20)
[2021-04-19] MEDS: MIDODRINE HCL (5MG) 5 MG TABLET PO SCH ×3 (08:21→16:18)
[2021-04-19] MEDS: CALCIUM ACETATE 667 MG CAP/TAB PO SCH ×3 (08:21→17:00)
[2021-04-19] MEDS: PROPOFOL 100 ML IV PRN (10:07)
--- NOTE | 2021-04-19 10:18 | NUR ---
WOUND CARE CONSULT: PT PRESENTS WITH SACRAL DEEP TISSUE INJURY IN EVOLUTION. PT HAS MULTIPLE CO-MORBIDITIES INCLUDING STATUS POST CODE BLUE (CURRENTLY INTUBATED), END STAGE RENAL FAILURE, CHF, AND NONSTEMI. DUE TO MULTIPLE CO-MORBIDITIES, FURTHER SKIN BREAKDOWN MAY BE UNAVOIDABLE. RECOMMENDATIONS MADE FOR SKIN PROTECTION AND WOUND CARE. DISCUSSED WITH NURSING STAFF. SURGICAL CONSULT CALLED TO DR THOMAS. FIRST STEP [facility] ORDER. MD IN AGREEMENT WITH PLAN OF CARE. Addendum: 04/19/21 at 1022 by JACK DURAN WNDNU Amended: Links added.
[2021-04-19] MEDS: PRECEDEX 400 MCG/100 ML BOTTLE 100 ML IV PRN ×2 (11:45→16:58)
[2021-04-19 13:41] LABS: LYMPHOCYTES % (MANUAL) 14 % (16-48); MONOCYTES % (MANUAL) 15 % (0-11.0); NEUTROPHILS % (MANUAL) 71 (42-76)
--- NOTE | 2021-04-19 14:00 | NUR ---
RN NOTES CALL RECEIVED FROM BLOOD BANK THAT PT HAS ANTIBODY IN HER BLOOD AND BLOOD WILL NOT BE READY TILL TOMORROW MORNING , ALIX SÁNCHEZ NOTIFIED .
--- NOTE | 2021-04-19 19:00 | NUR ---
RN NOTES PT REMAINS INTUBATED AND SEDATED, ET TUBE CARE DONE PRN, O2 SAT WNL, BLOOD NOT AVAILABLE FROM BLOOD BANK YET, , SR UP x3, CALL LIGHT WITHIN EASY REACH, BED LOCKED AND IN LOWEST POSITION, WILL ENDORSE TO NOUGAT CANDY MAKER HELPER NURSE FOR CONTINUITY OF CARE.
[2021-04-19] MEDS: FAMOTIDINE (20 MG) 20 MG TABLET PO SCH (21:24)
[2021-04-20] VITALS (45 sets, daily range): BP systolic 85–134; BP diastolic 30–86
[2021-04-20] MEDS: JEVITY 1.2 CAL 1,000 ML BOTTLE GT PRN (02:32)
[2021-04-20] MEDS: PRECEDEX 400 MCG/100 ML BOTTLE 100 ML IV PRN ×2 (02:34→10:33)
[2021-04-20] MEDS: CLINDAMYCIN 600 MG in IV D5W 50 ML IV SCH ×3 (05:12→21:55)
[2021-04-20 05:32] LABS: BASOPHILS % (AUTO) 1.1 % (0.0-2.0); EOSINOPHILS % (AUTO) 4.4 % (0.0-6.0); HEMATOCRIT 24 % (33-45); HEMOGLOBIN 7.4 g/dL (11.5-14.8); LYMPHOCYTES # (AUTO) 0.7 K/uL (0.8-4.8); LYMPHOCYTES % (AUTO) 20.8 % (20.0-44.0); MEAN CORPUSCULAR HGB CONC 31 g/dl (31.0-36.0); MEAN CORPUSCULAR VOLUME 92 fL (82-100); MONOCYTES # (AUTO) 0.4 K/uL (0.1-1.30); MONOCYTES % (AUTO) 10.9 % (2.0-12.0); NEUTROPHILS # (AUTO) 2.1 K/uL (1.8-8.9); NEUTROPHILS % (AUTO) 62.8 % (43.0-81.0); PLATELET COUNT (AUTO) 111 K/uL (150-450); RED BLOOD CELL COUNT(AUTO) 2.56 MIL/uL (4.0-5.2); WHITE BLOOD COUNT (AUTO) 3.4 K/uL (4.3-11.0)
[2021-04-20 06:00] LABS: CALCIUM, SERUM 8.4 mg/dL (8.5-10.1); CARBON DIOXIDE 32 mmol/L (21-32); CHLORIDE 100 mmol/L (98-107); CREATININE 3.8 mg/dL (0.6-1.3); GLUCOSE 104 mg/dL (74-106); MAGNESIUM 2.2 mg/dL (1.8-2.4); PHOSPHORUS 5.3 mg/dL (2.5-4.9); POTASSIUM 4.6 mmol/L (3.5-5.1); SODIUM SERUM 138 mmol/L (136-145); UREA NITROGEN, BLOOD 27 mg/dL (7-18)
[2021-04-20] MEDS: MIDODRINE HCL (5MG) 5 MG TABLET PO SCH ×3 (08:03→17:00)
[2021-04-20] MEDS: CALCIUM ACETATE 667 MG CAP/TAB PO SCH ×3 (08:28→17:31)
[2021-04-20] MEDS: CITRIC ACID/SODIUM CITRATE (BICITRA)15 ML UDC PO SCH ×4 (08:28→21:55)
[2021-04-20] MEDS: GABAPENTIN 100 MG CAPSULE PO SCH (08:28)
[2021-04-20] MEDS: LEVETIRACETAM SOL (5 ML) 100 MG/ML UDC GT SCH ×2 (08:28→21:55)
--- NOTE | 2021-04-20 09:02 | NUR ---
Blood transfusion ready for worm picker due to patient awaiting 1 unit of prbc from [facility]. Informed COOKER HELPER Tammie that patient's hgb is 7.4 and per COOKER HELPER to give 1 unit with dialysis.
[2021-04-20] MEDS: LEVOFLOXACIN 500 MG /D5W 100ML 500 MG in PREMIX 1 EA IV SCH (13:15)
[2021-04-20] MEDS: EPOETIN ALFA (10,000 UNIT) 10,000 UNIT/ML VIAL IV PRN (13:21)
--- NOTE | 2021-04-20 19:13 | NUR ---
RN CLOSING NOTES Patient is sedated on drip running at 0.2 mcg Percedex. Patient is on mechanical vent tolerating well. Left upper arm picc line noted and right chest wall hd cath. Patient is running og tube running at 20 cc /hour. No grimacing and moaning noted. Report given to next shift.
--- NOTE | 2021-04-20 19:30 | NUR ---
RN OPENING NOTE RECEIVED PATIENT IN BED. PATIENT IS CALM BUT SLIGHTLY AGITATED, REACHING FOR TUBINGS. ON MECHANICAL VENT ETTUBE 7.5, AC 14, FIO2 30%, PEEP5. RESPIRATIONS ARE EVEN AND UNLABORED. NO S/S SOB NOTED. NO C/O PAIN AT THIS TIME. TELE MONITOR READS A PACING HR 64. IV ACCESS IN OLIVIER PICC LINE RUNNING PRECEDEX @02, WILL INCREASE SEDATION TO KEEP PATIENT MORE COMFORTABLE. OG TUBE , NO RESIDUAL, RUNNING FEEDING AT JEVITY 1.2@20ML, INCREASED FEEDING TO 30CC. BILATERAL SOFT WRIST RESTRAINTS PRESENT. BED IS LOW AND LOCKED, HOB ELEVTAED IN SEMI FOWLERS, SIDE RIALS UP X2. ALARMS ON AND SAFETY PRECAUTIONS IN PLACE.
[2021-04-20] MEDS: FAMOTIDINE (20 MG) 20 MG TABLET PO SCH (21:55)
[2021-04-21] VITALS (38 sets, daily range): BP systolic 102–164; BP diastolic 25–90
[2021-04-21] MEDS: CLINDAMYCIN 600 MG in IV D5W 50 ML IV SCH ×3 (05:08→20:18)
[2021-04-21] MEDS: PRECEDEX 400 MCG/100 ML BOTTLE 100 ML IV PRN (05:11)
[2021-04-21 05:41] LABS: BASOPHILS % (AUTO) 0.5 % (0.0-2.0); EOSINOPHILS % (AUTO) 0.7 % (0.0-6.0); HEMATOCRIT 25 % (33-45); HEMOGLOBIN 8.1 g/dL (11.5-14.8); LYMPHOCYTES # (AUTO) 0.6 K/uL (0.8-4.8); LYMPHOCYTES % (AUTO) 15.7 % (20.0-44.0); MEAN CORPUSCULAR HGB CONC 32 g/dl (31.0-36.0); MEAN CORPUSCULAR VOLUME 90 fL (82-100); MONOCYTES # (AUTO) 0.4 K/uL (0.1-1.30); MONOCYTES % (AUTO) 10.1 % (2.0-12.0); PLATELET COUNT (AUTO) 102 K/uL (150-450); RED BLOOD CELL COUNT(AUTO) 2.78 MIL/uL (4.0-5.2); WHITE BLOOD COUNT (AUTO) 4.1 K/uL (4.3-11.0)
[2021-04-21 05:42] LABS: CALCIUM, SERUM 7.5 mg/dL (8.5-10.1); CARBON DIOXIDE 31 mmol/L (21-32); CHLORIDE 101 mmol/L (98-107); CREATININE 3.1 mg/dL (0.6-1.3); GLUCOSE 91 mg/dL (74-106); PHOSPHORUS 3.8 mg/dL (2.5-4.9); POTASSIUM 4.2 mmol/L (3.5-5.1); SODIUM SERUM 137 mmol/L (136-145); UREA NITROGEN, BLOOD 21 mg/dL (7-18)
--- NOTE | 2021-04-21 06:09 | NUR ---
RN NOTE OG TUBE PLACED. PLACEMENT VERIFIED WITH EDGER HAND ED.
--- NOTE | 2021-04-21 07:31 | NUR ---
RN CLOSING NOTE RESTING IN BED. SEDATED. ON VENT, NO CHANGES IN SETTINGS. NO RESP DISTRESS. NO PAIN. TELE IS A PACING.OLIVIER PICC LINE RUNNING PRECEDEX @0.6 NOW, HAD TO DECREASE FROM 0.7 D/T PATIENTS HR DECREASED TO 48. OG TUBE WAS REMOVED LAST NIGHT, REINSERTED AT 0600. BILATERAL SOFT WRIST RESTRAINTS MAINTAINED . BED REMAINS LOW AND LOCKED, HOB ELEVATED IN SEMI FOWLERS, SIDE RIALS UP X2. ALARMS ON AND SAFETY PRECAUTIONS IN PLACE. WILL ENDORSE TO ONCOMING SHIFT.
--- NOTE | 2021-04-21 07:47 | NUR ---
RN OPENING NOTES Patient is sedated on drip running at 0.6 mcg Percedex. Patient is on mechanical vent setting of ac 14, tv of 400 fi02 of 30 and peep of 5. tolerating well. Left upper arm picc line noted and right chest wall hd cath. Patient is running og tube running at 30 cc /hour. No grimacing and moaning noted. Per report patient had episode of bradycardia. HOB kept elevated. Bed is in lowest and locked position. Call light with in reach.
[2021-04-21] MEDS: MIDODRINE HCL (5MG) 5 MG TABLET PO SCH ×3 (08:15→16:25)
[2021-04-21] MEDS: CITRIC ACID/SODIUM CITRATE (BICITRA)15 ML UDC PO SCH ×4 (08:54→20:20)
[2021-04-21] MEDS: CALCIUM ACETATE 667 MG CAP/TAB PO SCH ×3 (08:54→16:26)
[2021-04-21] MEDS: GABAPENTIN 100 MG CAPSULE PO SCH (08:54)
--- NOTE | 2021-04-21 09:25 | NUR ---
RT NOTE PT PLACED ON CPAP PER MD ORDERS. PT SHOWS NO SIGNS OF RESP DISTRESS OR SOB. PT ABLE TO MAINTAIN ADEQUATE VOLUMES AND O2 SATURATION. RN AND MD AWARE. WILL CONTINUE TO MONITOR. Addendum: 04/21/21 at 1116 by GIA PEDERSON RT Amended: Links added.
--- NOTE | 2021-04-21 09:30 | NUR ---
RT NOTE LATE ENTRY PT EXTUBATED AND PLACED ON 5LNC PER MD ORDERS. PT SHOWS NO SIGNS OF RESP DISTRESS OR SOB. WILL CONTINUE TO MONITOR. Addendum: 04/21/21 at 1118 by GIA PEDERSON RT Amended: Links added.
--- NOTE | 2021-04-21 10:00 | NUR ---
Patient extubated with MD Garcia at bedside. On 5 liters nc with od 02 90-92%
--- NOTE | 2021-04-21 10:38 | NUR ---
Patient placed on venturi mask at 12 liters and 40 %. fi02 with 02 sat of 98%
--- NOTE | 2021-04-21 11:30 | NUR ---
Patient noted with episodes of generalized tremors. Informed TEXTILE ENGRAVER Tammie, patient was seen by TEXTILE ENGRAVER and assessed at the time. Patient responsive while shaking. Patient given Ativan 1 mg iv per TEXTILE ENGRAVER verbal and also standing orders.
[2021-04-21] MEDS: LEVETIRACETAM (500MG) 500 MG in IV NS 0.9% 100 ML IV SCH ×2 (11:35→22:50)
[2021-04-21] MEDS: LORAZEPAM INJ 2 MG/ML VIAL IV PRN (11:40)
--- NOTE | 2021-04-21 16:35 | NUR ---
Dr Rivas made aware regarding generalized tremors and shaking. Per MD to monitor and inform if anything changes.
--- NOTE | 2021-04-21 19:05 | NUR ---
Rn CLOSING NOTES Patient is alert and repsonive to verbal and physical stimuli and follows command.Patient is on venturi mask 12 liters at 40% saturating 100% . Left upper arm picc line noted and right chest wall hd cath. No grimacing and moaning noted. HOB kept elevated. Bed is in lowest and locked position. Call light with in reach.Patient turned and repositioned q2h and prn.Will endorse to next shift.
--- NOTE | 2021-04-21 19:30 | NUR ---
RN OPENING NOTE RECEIVED PATIENT IN BED. HUNGARIAN SPEAKING, ABLE TO ANSWER QUESTIONS BY NODDING WITH DOCTOR OF OSTEOPATHY ED WHO SPEAKS HUNGARIAN. PATIENT SOUNDS CONGESTED AND GARGLING. PATIENT UNABLE TO CLEAR OWN SECRETIONS. ON VENTURI MASK @12L/MIN SPO2 99-100%. RESPIRATIONS ARE EVEN AND UNLABORED. NO S/S SOB NOTED. NO C/O PAIN AT THIS TIME. TELE MONITOR READS SINUS RHTYHM HR 94. IV ACCESS IN OLIVIER PICC LINE PATENT AND SALINE LOCKED. BILATERAL SOFT WRIST RESTRAINTS PRESENT. BED IS LOW AND LOCKED, HOB ELEVTAED IN HIGH FOWLERS, SIDE RIALS UP X3. ALARMS ON AND SAFETY PRECAUTIONS IN PLACE.
[2021-04-21] MEDS: IV NS 0.9% 250 ML IV PRN (20:19)
[2021-04-21] MEDS: FAMOTIDINE (20 MG) 20 MG TABLET PO SCH (22:00)
[2021-04-22] VITALS (38 sets, daily range): BP systolic 72–167; BP diastolic 35–91
[2021-04-22] MEDS: CLINDAMYCIN 600 MG in IV D5W 50 ML IV SCH ×3 (05:14→21:09)
[2021-04-22 05:32] LABS: BASOPHILS % (AUTO) 0.6 % (0.0-2.0); EOSINOPHILS % (AUTO) 0.1 % (0.0-6.0); HEMATOCRIT 25 % (33-45); LYMPHOCYTES # (AUTO) 0.6 K/uL (0.8-4.8); LYMPHOCYTES % (AUTO) 14.4 % (20.0-44.0); MEAN CORPUSCULAR HGB CONC 32 g/dl (31.0-36.0); MEAN CORPUSCULAR VOLUME 91 fL (82-100); MONOCYTES # (AUTO) 0.5 K/uL (0.1-1.30); MONOCYTES % (AUTO) 12.9 % (2.0-12.0); NEUTROPHILS # (AUTO) 2.8 K/uL (1.8-8.9); PLATELET COUNT (AUTO) 119 K/uL (150-450); RED BLOOD CELL COUNT(AUTO) 2.75 MIL/uL (4.0-5.2); WHITE BLOOD COUNT (AUTO) 3.9 K/uL (4.3-11.0)
[2021-04-22 06:18] LABS: CALCIUM, SERUM 7.7 mg/dL (8.5-10.1); CARBON DIOXIDE 28 mmol/L (21-32); CHLORIDE 100 mmol/L (98-107); CREATININE 3.8 mg/dL (0.6-1.3); GLUCOSE 75 mg/dL (74-106); MAGNESIUM 2.4 mg/dL (1.8-2.4); PHOSPHORUS 5.4 mg/dL (2.5-4.9); POTASSIUM 4.6 mmol/L (3.5-5.1); SODIUM SERUM 138 mmol/L (136-145); UREA NITROGEN, BLOOD 28 mg/dL (7-18)
--- NOTE | 2021-04-22 06:45 | NUR ---
RN CLOSING NOTE RESTING IN BED. CONTINUES TO NOD TO QUESTIONS. STILL UNABLE TO CLEAR OWN SECRETIONS, AND SOUNDS CONGESTED. REMAINS ON VENTURI MASK @12L/MIN SPO2 99. NO PAIN. TELE IS SINUS RHTYHM. OLIVIER PICC LINE MAINTAINED. BILATERAL SOFT WRIST RESTRAINTS INTACT. BED REMAINS LOW AND LOCKED, HOB ELEVTAED IN HIGH FOWLERS, SIDE RIALS UP X3. ALARMS ON AND SAFETY PRECAUTIONS IN PLACE. WILL ENDORSE TO ONOCMING SHIFT. Addendum: 04/22/21 at 0717 by WING SCHROEDER RN ENDORSED TO NEXT SHIFT ABG RESULT.
--- NOTE | 2021-04-22 07:52 | NUR ---
Rn CLOSING NOTES Patient is alert and repsonive to verbal and physical stimuli and follows command.Patient is on venturi mask 12 liters at 40% saturating 100% . Left upper arm picc line noted and right chest wall hd cath. No grimacing and moaning noted. HOB kept elevated. Bed is in lowest and locked position. Call light with in reach.Will continue to monitor. call light with in reach.
[2021-04-22] MEDS: CALCIUM ACETATE 667 MG CAP/TAB PO SCH ×3 (08:00→16:31)
[2021-04-22] MEDS: MIDODRINE HCL (5MG) 5 MG TABLET PO SCH ×3 (08:17→16:31)
[2021-04-22] MEDS: CITRIC ACID/SODIUM CITRATE (BICITRA)15 ML UDC PO SCH ×4 (09:00→21:00)
[2021-04-22] MEDS: GABAPENTIN 100 MG CAPSULE PO SCH (09:00)
[2021-04-22 09:14] LABS: ABG BASE EXCESS 2.2 mmol/L; ABG OXYGEN SATURATION 97.4 % (92.0-98.5); ABG PCO2 42.7 mmHg (35.0-45.0); ABG PH 7.418 (7.350-7.450); ABG PO2 102.5 mmHg (75.0-100.0); AaDO2 61.2 mmHg; COHb 1.7 % (0.5-1.5); MetHb 0.3 % (0.0-1.5); O2Hb 95.5 % (94.0-97.0); SITE, ABG Right Radial; VENT MODE, BG AC 14 400 30% +5
[2021-04-22 09:53] LABS: ABG BASE EXCESS -1.4 mmol/L; ABG OXYGEN SATURATION 95.9 % (92.0-98.5); ABG PCO2 48.2 mmHg (35.0-45.0); ABG PH 7.327 (7.350-7.450); ABG PO2 88.4 mmHg (75.0-100.0); AaDO2 141.4 mmHg; COHb 0.7 % (0.5-1.5); MetHb 0.3 % (0.0-1.5); O2Hb 94.9 % (94.0-97.0); SITE, ABG Right Radial; VENT MODE, BG 40% venturi
[2021-04-22] MEDS: LEVETIRACETAM (500MG) 500 MG in IV NS 0.9% 100 ML IV SCH ×2 (11:25→22:51)
[2021-04-22] MEDS: LEVOFLOXACIN 500 MG /D5W 100ML 500 MG in PREMIX 1 EA IV SCH (12:00)
[2021-04-22] MEDS ORDERED: LEVETIRACETAM (500MG) 500 MG/5 ML VIAL IV PRN (16:30)
[2021-04-22] MEDS ORDERED: LEVETIRACETAM (500MG) 500 MG in IV NS 0.9% 100 ML IV PRN (16:30)
[2021-04-22] MEDS: EPOETIN ALFA (10,000 UNIT) 10,000 UNIT/ML VIAL IV PRN (17:49)
--- NOTE | 2021-04-22 19:20 | NUR ---
Rn CLOSING NOTES Patient is alert and repsonive to verbal and physical stimuli and follows command.Patient is on venturi mask 12 liters at 40% saturating 100%.Left upper arm picc line noted and right chest wall hd cath. No grimacing and moaning noted. HOB kept elevated. Bed is in lowest and locked position. Call light with in reach.Endorsed to next shift. Patient had HD done and noted with 3000 ml ouptut. Epogen given with HD. Keppra given post HD.
--- NOTE | 2021-04-22 20:00 | NUR ---
RN OPENING AND TRANSFER NOTE RECEIVED PATIENT IN BED. NODS WHEN ASKED QUESTIONS. ON OXYGEN 12L/MIN VIA VENTURI MASK. RESPIRATIONS ARE EVEN AND UNLABORED. NO S/S SOB NOTED. NO C/O PAIN. TELE MONITOR READS SINUS RHTYHM HR 89. NO APARENT DISTRESS. IV ACCESS IN OLIVIER PICC LINE AND RIGHT CHEST HD CATH LINES ARE PATENT AND SALINE LOCKED. PATIENT WAS TRANSFERED VIA ACLS PROTOCOL TO [facility], REPORT GIVEN AT BEDSIDE. ALL BELONINGS, MEDICATIONS AND CHART WAS TRANSFERED WITH PATIENT.
--- NOTE | 2021-04-22 20:10 | NUR ---
KITCHEN DESIGNERLICENSED PSYCHOLOGIST NOTE Received patient from ICU TO room 308-1, Patient is alert, awake and responsive to verbal and physical stimuli and follows command. Patient is on venturi mask 12 liters at 40% saturating 98%. Left upper arm picc line noted and right chest wall hd cath. Left chest wall pacemaker in place on 04/11/21. Patient was extubated on 04/21/21 at 10 am. S/P 1 unit PRBC ON 04/20/21. Patient is NPO, on aspiration precautions, HOB kept elevated. Per PRECAST WORKER report, HD was done on 04/22/21 with 3 liter output. Epogen given with HD and Keppra IV given post dialysis. Noted with upper extremity bilateral soft restraints, skin color normal, will continue to monitor for any skin changes. No grimacing and moaning noted. Belongings brought in by RN. Endorsed to TOOL AND DIE MAKER LEVEL FIVE to check belongings. Bed is in lowest and locked position. Call light with in reach. Will continue to monitor. call light with in reach.
[2021-04-22] MEDS: FAMOTIDINE (20 MG) 20 MG TABLET PO SCH (21:05)
--- NOTE | 2021-04-22 22:35 | NUR ---
RN NOTE PATIENT'S DAUGHTER EMILIE WAS CALLED BACK AT [phone] TO GIVE AN UPDATE REGARDING PATIENT'S CURRENT HEALTH CONDITION. LEFT A VOICEMAIL.
[2021-04-23] VITALS (7 sets, daily range): BP systolic 103–175; BP diastolic 61–74
--- NOTE | 2021-04-23 03:11 | NUR ---
RN NOTE PATIENT SLEEPING INTERMITTENTLY. NODS WHEN ASKED QUESTIONS. ON OXYGEN 12L/MIN VIA VENTURI MASK. RESPIRATIONS ARE EVEN AND UNLABORED. NO S/S SOB NOTED. NO S/S OF PAIN NOTED. TELE MONITOR READS SINUS RHYTHM HR 108. NO APPARENT DISTRESS NOTED AT THIS TIME. IV ACCESS IN OLIVIER PICC LINE AND RIGHT CHEST HD CATH LINES ARE INTACT/PATENT. PATIENT SEEN AND SUCTIONED BY RT. WILL CONTINUE TO MONITOR CLOSELY FOR ANY CHANGE OF CONDITION..
[2021-04-23] MEDS: LORAZEPAM INJ 2 MG/ML VIAL IV PRN ×2 (04:14→20:16)
--- NOTE | 2021-04-23 04:23 | NUR ---
RN NOTE: ANXIETY/RESTLESSNESS PATIENT NOTED TO BE RESTLESS AND ANXIOUS, VITALS CHECKED 132/64, 107, 20, 98.8, 95% ON 12 L VIA VENTURI MASK. CHARGE NURSE NOTIFIED PATIENT'S RESTLESSNESS, CHARGE NURSE ASSESSED THE PATIENT WELL. PRN ATIVAN 1 MG IV ADMINISTERED ORDERED BY MD. WILL CONTINUE TO MONITOR THE PATIENT CLOSELY.
[2021-04-23] MEDS: CLINDAMYCIN 600 MG in IV D5W 50 ML IV SCH ×3 (05:04→21:47)
[2021-04-23 07:07] LABS: BASOPHILS % (AUTO) 0.7 % (0.0-2.0); EOSINOPHILS % (AUTO) 0.1 % (0.0-6.0); HEMATOCRIT 24 % (33-45); HEMOGLOBIN 7.6 g/dL (11.5-14.8); LYMPHOCYTES # (AUTO) 0.4 K/uL (0.8-4.8); LYMPHOCYTES % (AUTO) 9.9 % (20.0-44.0); MEAN CORPUSCULAR HGB CONC 32 g/dl (31.0-36.0); MEAN CORPUSCULAR VOLUME 91 fL (82-100); MONOCYTES # (AUTO) 0.3 K/uL (0.1-1.30); MONOCYTES % (AUTO) 9.1 % (2.0-12.0); NEUTROPHILS # (AUTO) 2.9 K/uL (1.8-8.9); NEUTROPHILS % (AUTO) 80.2 % (43.0-81.0); PLATELET COUNT (AUTO) 126 K/uL (150-450); RED BLOOD CELL COUNT(AUTO) 2.63 MIL/uL (4.0-5.2); WHITE BLOOD COUNT (AUTO) 3.6 K/uL (4.3-11.0)
[2021-04-23 07:24] LABS: CALCIUM, SERUM 7.6 mg/dL (8.5-10.1); CARBON DIOXIDE 26 mmol/L (21-32); CHLORIDE 101 mmol/L (98-107); CREATININE 2.9 mg/dL (0.6-1.3); GLUCOSE 88 mg/dL (74-106); MAGNESIUM 2.2 mg/dL (1.8-2.4); PHOSPHORUS 5.2 mg/dL (2.5-4.9); POTASSIUM 4.6 mmol/L (3.5-5.1); SODIUM SERUM 137 mmol/L (136-145); UREA NITROGEN, BLOOD 20 mg/dL (7-18)
--- NOTE | 2021-04-23 07:30 | NUR ---
TWENTY ONE DEALER OPENING NOTES RECEIVED PATIENT ON BED, RESTING AND A/O X1. NON-VERBAL. ON VENTURI MASK AT 12LPM. NOT IN DISTRESS. WITH IV ACCESS AT LEFT UPPER ARM PICC LINE SALINE LOCKED, PATENT AND INTACT. ON TELE MONITOR CURRENTLY READING SINUS TACHYCARDIA AT 103BPM. SAFETY MEASURES IN PLACED. CALL LIGHT WITHIN REACH. BED ON LOWEST LOCKED POSITION, SIDE RAILS UP X2. WILL CONTINUE TO MONITOR.
--- NOTE | 2021-04-23 07:51 | NUR ---
WOUND CARE CONSULT/FOLLOW UP: PT SEEN FOR RE-EVALUATION OF SACRAL DEEP TISSUE INJURY IN EVOLUTION, NO SIGN OF INFECTION NOTED. RECOMMEND CONTINUE PRESENT WOUND TREATMENT. DISCUSSED WITH NURSING STAFF. PT TO BE PLACED ON ISOFLEX LOW AIRLOSS BED. MD IN AGREEMENT WITH PLAN OF CARE. DUE TO MULTIPLE CO-MORBIDITIES, FURTHER SKIN BREAKDOWN MAY BE UNAVOIDABLE. Addendum: 04/23/21 at 0759 by JACK DURAN WNDNU MULTIPLE CO-MORBIDITIES INCLUDE END STAGE RENAL FAILURE, GENERALIZED PITTING EDEMA, STATUS POST CARDIOPULMONARY ARREST AND CONGESTIVE HEART FAILURE.
[2021-04-23] MEDS: CALCIUM ACETATE 667 MG CAP/TAB PO SCH ×3 (08:00→17:12)
[2021-04-23] MEDS: MIDODRINE HCL (5MG) 5 MG TABLET PO SCH ×3 (09:00→17:00)
[2021-04-23] MEDS: GABAPENTIN 100 MG CAPSULE PO SCH (09:00)
[2021-04-23] MEDS: CITRIC ACID/SODIUM CITRATE (BICITRA)15 ML UDC PO SCH ×4 (09:00→20:47)
--- NOTE | 2021-04-23 09:53 | NUR ---
RN NOTES REPORTED TO DR. TIRADO REGARDING PATIENT'S CONDITION TO BE TRANSFERRED TO ICU. DR. TIRADO CALLED PATIENT'S DAUGHTER NAMED EMILIE AND INFORMED REGARDING PATIENT'S CONDITION AND PATIENT DAUGHTER WANTS TO HAVE THE PATIENT ON DNR/DNI STATUS. DOCTOR ORDERED DNR/DNI STATUS PER PATIENT'S DAUGHTER REQUEST.
--- NOTE | 2021-04-23 10:27 | NUR ---
RT NOTE ABG DONE ON 40% VENTURI. RESULTS GIVEN TO RN FOR REVIEW. WILL CONTINUE TO MONITOR T/O SHIFT
[2021-04-23] MEDS: LEVETIRACETAM (500MG) 500 MG in IV NS 0.9% 100 ML IV SCH (10:46)
[2021-04-23] MEDS: LEVETIRACETAM (500MG) 1,000 MG in IV NS 0.9% 100 ML IV SCH ×2 (14:51→20:58)
--- NOTE | 2021-04-23 19:15 | NUR ---
SCRATCH BRUSHER CLOSING NOTES PATIENT ON BED, AWAKE AND A/O X1 WITH FAMILY AT BEDSIDE. PATIENT IS NON-VERBAL. ON VENTURI MASK AT 12LPM. NOT IN DISTRESS. WITH IV ACCESS AT LEFT UPPER ARM PICC LINE SALINE LOCKED, PATENT AND INTACT. ON TELE MONITOR CURRENTLY READING SINUS RHYTHM AT 92BPM. SAFETY MEASURES IN PLACED. CALL LIGHT WITHIN REACH. BED ON LOWEST LOCKED POSITION, SIDE RAILS UP X2. WILL ENDORSE TO NEXT SHIFT FOR SARA.
--- NOTE | 2021-04-23 19:36 | NUR ---
PHYSICAL SECURITY SPECIALIST OPENING NOTE: RECEIVED REPORT AT PATIENT'S BEDSIDE. FAMILY PRESENT. PATIENT NOTED WITH VENTURI MASK @ 12LPM. LUNG SOUNDS DIMINISHED BILATERALLY. PATIENT IS NON-VERBAL AND RESPONSIVE TO TOUCH WITH EYE OPENING. TELEMETRY READING SR 90. HOB ELEVATED TO SEMI-FOWLERS POSITION. OLIVIER PICC FLUSHED AND PATENT. NO S/SX OF ERYTHEMA/INFILTRATION TO OR SURROUNDING CATHETER INSERTION SITE. DRESSING C/D/I. BED IN LOW/LOCKED POSITION. CALL LIGHT WITHIN REACH.
[2021-04-23] MEDS: FAMOTIDINE (20 MG) 20 MG TABLET PO SCH (22:00)
[2021-04-24] VITALS (21 sets, daily range): BP systolic 104–134; BP diastolic 48–91
[2021-04-24] MEDS: CLINDAMYCIN 600 MG in IV D5W 50 ML IV SCH ×3 (04:08→21:26)
--- NOTE | 2021-04-24 04:15 | NUR ---
SHIP RUNNER NOTE: LOW GRADE TEMP 99.0 NOTED. COOLING MEASURES IMPLEMENTED.
[2021-04-24 06:08] LABS: ABG BASE EXCESS 0.3 mmol/L; ABG OXYGEN SATURATION 97.1 % (92.0-98.5); ABG PCO2 51.6 mmHg (35.0-45.0); ABG PO2 95.9 mmHg (75.0-100.0); COHb 0.9 % (0.5-1.5); MetHb 0.3 % (0.0-1.5); O2Hb 95.9 % (94.0-97.0); SITE, ABG Right Radial; VENT MODE, BG 40 % VENTURI
[2021-04-24 06:44] LABS: BASOPHILS % (AUTO) 0.5 % (0.0-2.0); EOSINOPHILS % (AUTO) 0.1 % (0.0-6.0); HEMATOCRIT 29 % (33-45); HEMOGLOBIN 9.1 g/dL (11.5-14.8); LYMPHOCYTES # (AUTO) 0.7 K/uL (0.8-4.8); MEAN CORPUSCULAR HGB CONC 32 g/dl (31.0-36.0); MEAN CORPUSCULAR VOLUME 92 fL (82-100); MONOCYTES # (AUTO) 0.5 K/uL (0.1-1.30); MONOCYTES % (AUTO) 10.7 % (2.0-12.0); NEUTROPHILS # (AUTO) 3.4 K/uL (1.8-8.9); NEUTROPHILS % (AUTO) 73.7 % (43.0-81.0); PLATELET COUNT (AUTO) 187 K/uL (150-450); RED BLOOD CELL COUNT(AUTO) 3.14 MIL/uL (4.0-5.2); WHITE BLOOD COUNT (AUTO) 4.6 K/uL (4.3-11.0)
[2021-04-24 07:13] LABS: CALCIUM, SERUM 8.3 mg/dL (8.5-10.1); CARBON DIOXIDE 24 mmol/L (21-32); CHLORIDE 101 mmol/L (98-107); CREATININE 4.2 mg/dL (0.6-1.3); GLUCOSE 97 mg/dL (74-106); MAGNESIUM 2.6 mg/dL (1.8-2.4); PHOSPHORUS 6.6 mg/dL (2.5-4.9); POTASSIUM 5.4 mmol/L (3.5-5.1); SODIUM SERUM 137 mmol/L (136-145); UREA NITROGEN, BLOOD 30 mg/dL (7-18)
--- NOTE | 2021-04-24 07:30 | NUR ---
REAL ESTATE OFFICE SUPERVISOR OPENING NOTES RECEIVED PATIENT ON BED AND A/O X1. PATIENT IS NON-VERBAL AND RESPONSIVE TO TOUCH. ON VENTURI MASK AT 12LPM. WITH IV ACCESS AT LEFT UPPER ARM PICC LINE SALINE LOCKED, PATENT AND INTACT. WITH RIGHT CHEST WALL PERMACATH FOR HD, DRESSING IS DRY AND INTACT. SAFETY MEASURES IN PLACED. CALL LIGHT WITHIN REACH. BED ON LOWEST LOCKED POSITION, SIDE RAILS UP X2. WILL CONTINUE TO MONITOR.
--- NOTE | 2021-04-24 07:30 | NUR ---
RN NOTE ON TELE MONITOR CURRENTLY READING SINUS RHYTHM AT 98BPM.
--- NOTE | 2021-04-24 08:45 | NUR ---
ADMITTING OFFICER Bedside report taken from Nicole CRAWLEY. Pt transfered to ICU 264 via bed from 3rd floor d/t respiratory distress. pt unresponsive, placed on bpap fo2 100%, tolerating well. spo2 100%. perrla, pt does not open, eyes, track or follow command but has trace movement in bue and ble. pt strict npo at this time. no gt present. bowel sounds hypoactive. pt anuric, HD pending today. bue and ble pusles present. sacral dti noted. lue picc and right chest permeacath wnl. safety measures in place. will continue to monitor.
--- NOTE | 2021-04-24 08:45 | NUR ---
RN NOTES TRANSFER PATIENT TO ICU PER DOCTOR HERRERA'S ORDER FOR URGENT HEMODIALYSIS AND BIPAP.
[2021-04-24] MEDS: CITRIC ACID/SODIUM CITRATE (BICITRA)15 ML UDC PO SCH ×4 (09:00→21:00)
[2021-04-24] MEDS: MIDODRINE HCL (5MG) 5 MG TABLET PO SCH ×3 (09:00→17:00)
[2021-04-24] MEDS: GABAPENTIN 100 MG CAPSULE PO SCH (09:00)
[2021-04-24] MEDS: CALCIUM ACETATE 667 MG CAP/TAB PO SCH ×3 (09:00→17:29)
--- NOTE | 2021-04-24 09:05 | NUR ---
LABEL DRIER Dr Hughes at bedside assessing pt. aware pt on bipap. questioned why pt transfered to ICU when pt DNR/DNI, charge nurse Grace talking with . aware per dr Marino pt to be transfered to ICU placed on bipap and have HD today.
--- NOTE | 2021-04-24 09:46 | NUR ---
TECHNOLOGY SALES SPECIALIST Dr Florence at bedside assessing pt and updated on pt status. md on phone talking to raeann dominique and updating on pt status, transfer to icu and any questions son has. no new orders at this time. will continue to monitor.
[2021-04-24] MEDS: LEVETIRACETAM (500MG) 1,000 MG in IV NS 0.9% 100 ML IV SCH ×2 (10:30→22:21)
[2021-04-24] MEDS: LEVOFLOXACIN 500 MG /D5W 100ML 500 MG in PREMIX 1 EA IV SCH (11:27)
--- NOTE | 2021-04-24 13:41 | NUR ---
ROCK MASON APPRENTICE HD nurse at bedside to start HD, pt on bipap, tolerating well. vitals stable. will continue to monitor.
--- NOTE | 2021-04-24 15:15 | NUR ---
OFFICE MACHINERY OR EQUIPMENT INSTALLER Pt bathed and cleaned. linen change done. skin check done, no new wounds noted. wound care done per md order on sacral wound. pt tolerated well. all lines traced. all drips verified. safety measures in place will continue to monitor.
--- NOTE | 2021-04-24 17:05 | NUR ---
APRON OPERATOR HD completed 2.5 L removed per HD RN. pt tolerated well. vitals stable.
--- NOTE | 2021-04-24 17:30 | NUR ---
CORE PASTER All PO meds held d/t pt aloc and high bipap requirements. md aware. speech eval order entered per md and study pending.
--- NOTE | 2021-04-24 19:04 | NUR ---
VESSEL SLAG WORKER Bedside report given to [facility] nurse Arpan CRAWLEY. pt asleep, but arousable. on bipap fio2 80% tolerating well. All lines traced. pt clean and dry. no signs of acute distress at this time. safety measures in place.
--- NOTE | 2021-04-24 19:30 | NUR ---
RN NOTE PT RECEIVED IN BED. CURRENTLY ON BIPAP TOLERATING WELL WITH OXYGEN SATURATION AT 100%. PT IS NOT ALERT, BUT ABLE TO OPEN EYES. ON MONITOR SHOWING A-FIB. SACRAL DTI NOTED. CURRENTLY NPO. LEFT CHEST PACEMAKER NOTED, RIGHT PERMACATH HD NOTED. IV ACCESS NOTED ON LEFT UPPER ARM PICC LINE. LINE FLUSHED, PATENT, AND INTACT WITH NO SIGNS OF INFILTRATION. ALL SAFETY MEASURES IMPLEMENTED. WILL CONTINUE TO MONITOR AND ASSESS FOR ANY CHANGES DURING SHIFT.
--- NOTE | 2021-04-24 20:52 | NUR ---
RN NOTE SPOKE WITH DR. GUPTA ABOUT PT BEING NPO AND HAVING SCHEDULED PO PEPCID DUE AT 2200. ASKED IF WE CAN CHANGE TO IV AND DR. MUÑOZ SAID OKAY TO CHANGE PEPCID TO IV. ORDER NOTED AND CARRIED OUT.
[2021-04-24] MEDS: FAMOTIDINE/PF INJ 20 MG/2 ML VIAL IV SCH (21:26)
[2021-04-25] VITALS (32 sets, daily range): BP systolic 120–164; BP diastolic 57–152
--- NOTE | 2021-04-25 04:56 | NUR ---
RN NOTE PT STATING SHE WANTS HER PHONE, BUT NO PHONE IN BELONGINGS AND NO BELONGINGS LIST IN CHART. ISIDRO AWARE.
[2021-04-25] MEDS: CLINDAMYCIN 600 MG in IV D5W 50 ML IV SCH ×3 (05:17→22:18)
--- NOTE | 2021-04-25 05:44 | NUR ---
RN NOTE PT REFUSING TO HAVE 0400 TEMPERATURE TAKEN. EXPLAINED RISKS/BENEFITS, BUT PT REFUSING TEMPERATURE ASSESSMENT.
--- NOTE | 2021-04-25 07:10 | NUR ---
RN NOTE NO CHANGES IN PT CONDITION DURING SHIFT. PT NOW ON VENTURI MASK AT 15L. 50% FIO2 TOLERATING WELL. PT IS NOW MORE ALERT AND ABLE TO VERBALIZE NEEDS. LEFT CHEST PACEMAKER NOTED, RIGHT PERMACATH HD NOTED. IV ACCESS NOTED ON LEFT UPPER ARM PICC LINE. LINE FLUSHED, PATENT, AND INTACT WITH NO SIGNS OF INFILTRATION. ALL DUE MEDS GIVEN ORDERED. PT KEPT CLEAN AND COMFORTABLE. ALL SAFETY MEASURES IMPLEMENTED. WILL ENDORSE TO MORNING SHIFT RN FOR SARA.
--- NOTE | 2021-04-25 07:51 | NUR ---
RN OPENING NOTE PT RECEIVED IN BED. CURRENTLY ON A VENTU MASK RUNNING 15L AND 50% FIO2 TOLERATING WELL WITH OXYGEN SATURATION AT 94%. PT IS ALERT BUT CONFUSED, REMINDED PATIENT TO KEEP MASK ON AT ALL TIMES. MONITOR SHOWING A-FIB. SACRAL DTI NOTED. CURRENTLY NPO DUE TO RISK OF ASPIRATION . LEFT CHEST PACEMAKER NOTED, RIGHT PERMACATH HD NOTED. IV ACCESS NOTED ON LEFT UPPER ARM PICC LINE. LINE FLUSHED, PATENT, AND INTACT WITH NO SIGNS OF INFILTRATION. ALL SAFETY MEASURES IMPLEMENTED.
[2021-04-25] MEDS: CALCIUM ACETATE 667 MG CAP/TAB PO SCH ×3 (08:00→17:15)
[2021-04-25] MEDS: CITRIC ACID/SODIUM CITRATE (BICITRA)15 ML UDC PO SCH ×4 (08:45→21:00)
[2021-04-25] MEDS: MIDODRINE HCL (5MG) 5 MG TABLET PO SCH ×3 (08:46→17:00)
[2021-04-25] MEDS: GABAPENTIN 100 MG CAPSULE PO SCH (08:46)
[2021-04-25] MEDS: LEVETIRACETAM (500MG) 1,000 MG in IV NS 0.9% 100 ML IV SCH ×2 (09:16→21:16)
[2021-04-25 09:21] LABS: BASOPHILS % (AUTO) 0.6 % (0.0-2.0); EOSINOPHILS % (AUTO) 0.8 % (0.0-6.0); HEMATOCRIT 24 % (33-45); HEMOGLOBIN 7.7 g/dL (11.5-14.8); LYMPHOCYTES # (AUTO) 0.4 K/uL (0.8-4.8); LYMPHOCYTES % (AUTO) 16.9 % (20.0-44.0); MEAN CORPUSCULAR HGB CONC 32 g/dl (31.0-36.0); MEAN CORPUSCULAR VOLUME 91 fL (82-100); MONOCYTES # (AUTO) 0.3 K/uL (0.1-1.30); MONOCYTES % (AUTO) 11.1 % (2.0-12.0); NEUTROPHILS # (AUTO) 1.7 K/uL (1.8-8.9); NEUTROPHILS % (AUTO) 70.6 % (43.0-81.0); PLATELET COUNT (AUTO) 133 K/uL (150-450); RED BLOOD CELL COUNT(AUTO) 2.66 MIL/uL (4.0-5.2); WHITE BLOOD COUNT (AUTO) 2.5 K/uL (4.3-11.0)
[2021-04-25 09:43] LABS: ALANINE AMINOTRANSFERASE 17 U/L (12-78); ALBUMIN 2.7 g/dL (3.4-5.0); ALKALINE PHOSPHATASE 72 U/L (46-116); ASPARTATE AMINOTRANSFERASE 12 U/L (15-37); BILIRUBIN,TOTAL 0.4 mg/dL (0.2-1.0); CALCIUM, SERUM 7.8 mg/dL (8.5-10.1); CARBON DIOXIDE 28 mmol/L (21-32); CHLORIDE 102 mmol/L (98-107); CREATININE 3.4 mg/dL (0.6-1.3); GLUCOSE 79 mg/dL (74-106); POTASSIUM 3.8 mmol/L (3.5-5.1); SODIUM SERUM 138 mmol/L (136-145); TOTAL PROTEIN, SERUM 5.5 g/dL (6.4-8.2); UREA NITROGEN, BLOOD 26 mg/dL (7-18)
--- NOTE | 2021-04-25 11:09 | NUR ---
RN NOTE RECEIVED CALL FROM PATIENTS SON REGARDING PATIENTS STATUS AND VITALS. SON INFORMED THAT PT IS A/O X 2 AND HAS BEEN PLACED ON VENTI MASK RUNNING 15LPM. SON ALSO ASKED REGARDING PATIENTS NPO STATUS AND WAS INFORMED THAT PATIENT IS STILL BEING KEPT NPO DUE TO ASPIRATION RISK. SON ASKED ABOUT PATIENTS PROGNOSIS AND WAS INFORMED THAT HE WOULD NEED TO SPEAK TO PROVIDER REGARDING THAT INFORMATION. .
[2021-04-25] MEDS: IV NS 0.9% 250 ML IV PRN (15:23)
--- NOTE | 2021-04-25 17:25 | NUR ---
RN NOTE PATIENT CLEANED, GIVEN A BED BATH, WOUND CARE PERFORMED ON SACRAL DTI.COMPLETE LINEN CHANGE DONE.
--- NOTE | 2021-04-25 18:47 | NUR ---
RN CLOSING NOTE PT IN BED. CURRENTLY ON A VENTU MASK RUNNING 15L AND 50% FIO2 TOLERATING WELL WITH OXYGEN SATURATION AT 94%. PT IS ALERT BUT CONFUSED, REMINDED PATIENT TO KEEP MASK ON AT ALL TIMES. MONITOR SHOWING A-FIB. SACRAL DTI NOTED AND WOUND CARE DONE. CURRENTLY NPO DUE TO RISK OF ASPIRATION . LEFT CHEST PACEMAKER NOTED, RIGHT PERMACATH HD NOTED. IV ACCESS NOTED ON LEFT UPPER ARM PICC LINE. LINE FLUSHED, PATENT, AND INTACT WITH NO SIGNS OF INFILTRATION RUNNING TKO AT 5MLS/HR. ALL SAFETY MEASURES IMPLEMENTED WILL ENDORSE TO NIGHT NURSE FOR SARA.
--- NOTE | 2021-04-25 19:30 | NUR ---
RN OPENING NOTE RECEIVED PATIENT IN BED. A/OX2, PERIODS OF CONFUSION. ON OXYGEN 15L 50% VIA VENTURI MASK. RESPIRATIONS ARE EVEN AND UNLABORED BUT SOB WHEN TALKING. NO C/O PAIN. TELE MONITOR READS SINUS RHYTHM HR 84. IN NO APPARENT DISTRESS. IV ACCESS IN OLIVIER PICC LINE RUNNING TKO. BED IS LOW AND LOCKED, HOB ELEVATED IN SEMI FOWLERS, SIDE RAILS UP X4, SEIZURE PRECAUTIONS IN PLACE. ALARMS ON AND SAFETY MEASURES ON.
--- NOTE | 2021-04-25 21:00 | NUR ---
RN NOTE PROVIDED UPDATE TO FAMILY ABOUT PATIENTS CONDITION. AND ORDERS SCHEDULED FOR TOMORROW.
[2021-04-25] MEDS: FAMOTIDINE/PF INJ 20 MG/2 ML VIAL IV SCH ×2 (21:21→21:31)
[2021-04-26] VITALS (16 sets, daily range): BP systolic 103–147; BP diastolic 66–88
--- NOTE | 2021-04-26 00:16 | NUR ---
RN NOTE PATIENTS TEMP IS 96.2, ROOM IS EXTREMELY COLD. HEATER NOT WORKING AT THIS TIME. ENGINEERING CALLED AND CAME TO CHANGE THE FLOORS TEMPERATURE. ADDITIONAL WARM BLANKETS PLACED ON PATIENT.
--- NOTE | 2021-04-26 03:27 | NUR ---
RT NOTE PT NON COMPLIANT AND REFUSES TO WEAR BIPAP. PT ON VENTURI MASK @ 50% FIO2 15LPM. PT O2 SATURATION AT 98%. NO RESP DISTRESS OR SOB NOTED. RN AND LINEN SUPPLY LOAD BUILDER AWARE. WILL CONTINUE TO MONITOR.
[2021-04-26 04:58] LABS: ALANINE AMINOTRANSFERASE 17 U/L (12-78); ALBUMIN 2.9 g/dL (3.4-5.0); ALKALINE PHOSPHATASE 78 U/L (46-116); ASPARTATE AMINOTRANSFERASE 13 U/L (15-37); BILIRUBIN,TOTAL 0.5 mg/dL (0.2-1.0); CALCIUM, SERUM 7.8 mg/dL (8.5-10.1); CARBON DIOXIDE 27 mmol/L (21-32); CHLORIDE 100 mmol/L (98-107); CREATININE 3.9 mg/dL (0.6-1.3); GLUCOSE 72 mg/dL (74-106); SODIUM SERUM 138 mmol/L (136-145); TOTAL PROTEIN, SERUM 5.7 g/dL (6.4-8.2); UREA NITROGEN, BLOOD 29 mg/dL (7-18)
[2021-04-26] MEDS: CLINDAMYCIN 600 MG in IV D5W 50 ML IV SCH (05:30)
[2021-04-26 05:34] LABS: BASOPHILS % (AUTO) 0.9 % (0.0-2.0); EOSINOPHILS % (AUTO) 0.2 % (0.0-6.0); HEMATOCRIT 26 % (33-45); HEMOGLOBIN 8.3 g/dL (11.5-14.8); LYMPHOCYTES # (AUTO) 0.4 K/uL (0.8-4.8); LYMPHOCYTES % (AUTO) 13.5 % (20.0-44.0); MEAN CORPUSCULAR HGB CONC 32 g/dl (31.0-36.0); MEAN CORPUSCULAR VOLUME 91 fL (82-100); MONOCYTES # (AUTO) 0.3 K/uL (0.1-1.30); MONOCYTES % (AUTO) 10.6 % (2.0-12.0); NEUTROPHILS # (AUTO) 2.1 K/uL (1.8-8.9); NEUTROPHILS % (AUTO) 74.8 % (43.0-81.0); PLATELET COUNT (AUTO) 150 K/uL (150-450); RED BLOOD CELL COUNT(AUTO) 2.86 MIL/uL (4.0-5.2); WHITE BLOOD COUNT (AUTO) 2.8 K/uL (4.3-11.0)
--- NOTE | 2021-04-26 06:19 | NUR ---
RN CLOSING NOTE IN BED. A/OX2, PERIODS OF CONFUSION. REMAINS ON VENTURI MASK WITH 15L 50%. NO RESP DISTRESS. NO PAIN. TELE IS SINUS RHYTHM. NO DISTRESS. OLIVIER PICC LINE RUNNING TKO. BED REMAINS LOW AND LOCKED, HOB ELEVATED IN SEMI FOWLERS, SIDE RAILS UP X4, SEIZURE PRECAUTIONS IN PLACE. ALARMS ON AND SAFETY MEASURES ON. WILL ENDORSE TO ONCOMING SHIFT.
[2021-04-26] MEDS: CALCIUM ACETATE 667 MG CAP/TAB PO SCH ×3 (07:58→17:03)
[2021-04-26] MEDS: CITRIC ACID/SODIUM CITRATE (BICITRA)15 ML UDC PO SCH ×4 (07:59→20:04)
[2021-04-26] MEDS: MIDODRINE HCL (5MG) 5 MG TABLET PO SCH (07:59)
[2021-04-26] MEDS: GABAPENTIN 100 MG CAPSULE PO SCH (07:59)
[2021-04-26] MEDS: LEVETIRACETAM (500MG) 1,000 MG in IV NS 0.9% 100 ML IV SCH ×2 (08:37→20:56)
[2021-04-26] MEDS: MIDODRINE HCL (5MG) 5 MG TABLET PO PRN (13:11)
--- NOTE | 2021-04-26 14:04 | NUR ---
REPORT GIVEN TO RUBI RN FOR PT TRANSFER TO ROOM 309-1. ALL BELONGINGS, MEDS AND CHART SENT WITH PATIENT. PT HAD DIALYSIS THIS AM 3L REMOVED. PT CHECKED ON HOURLY AND PRN BY NURSING STAFF.
--- NOTE | 2021-04-26 14:30 | NUR ---
TRANSFER NOTE Received bedside report from MISBAH Lehman. Transferred patient from ICU via bed to room 309-1. Patient is A/O x 1. On O2 at 15 LPM via Venturi mask. No s/s of distress noted. Sacrum DTI noted, wound care done as ordered. V/S as follows: BP 129/73; HR 82; RR 20; Temp 98.7; SPO2 100 %. Will continue to monitor patient.
[2021-04-26] MEDS: EPOETIN ALFA (10,000 UNIT) 10,000 UNIT/ML VIAL IV PRN (15:35)
--- NOTE | 2021-04-26 19:30 | NUR ---
MARKET RESEARCH INTERVIEWER OPENING NOTE RECEIVED PT IN BED WITH EYES CLOSED, EASILY AROUSABLE. A/O X1. O2 AT 15 LPM VIA VENTURI MASK. NO SOB OR S/S OF RESPIRATORY DISTRESS NOTED. IV ACCESS OLIVIER PICC LINE, INTACT AND PATENT. EXTERNAL ELECTRO OPTICS ENGINEER READING SR. SAFETY PRECAUTIONS IN PLACE. BED IN LOWEST LOCKED POSITION, HOB ELEVATED, SIDE RAILS UP X2, AND CALL LIGHT AND TABLE WITHIN REACH. WILL CONTINUE WITH PLAN OF CARE.
--- NOTE | 2021-04-26 19:59 | NUR ---
[employer] CAFETERIA CLOSING NOTE Patient in bed asleep. A/O x 1. On O2 at 15 LPM via venturi mask. No s/s of distress noted. IV access on OLIVIER PICC line, intact and patent. Left chest pacemaker present. NPO status maintained. HOB elevated. On tele monitoring showing SR. Patient kept clean and dry. Bilateral soft restraints on both wrists in place. Safety measures in place: bed in low, locked position; siderails up x 2; call light within reach. Will endorse to rn night nurse for SARA.
[2021-04-26] MEDS: FAMOTIDINE/PF INJ 20 MG/2 ML VIAL IV SCH (21:18)
[2021-04-26] MEDS: IV NS 0.9% 250 ML IV PRN (23:21)
[2021-04-27] VITALS: BP 140/84
[2021-04-27 04:00] VITALS: BP 128/61
--- NOTE | 2021-04-27 06:39 | NUR ---
OPTICS MANUFACTURING TECHNICIAN CLOSING NOTE PT IN BED WITH EYES CLOSED, EASILY AROUSABLE. A/O X1. O2 AT 15 LPM VIA VENTURI MASK. NO SOB OR S/S OF RESPIRATORY DISTRESS NOTED. IV ACCESS OLIVIER PICC LINE, INTACT AND PATENT. EXTERNAL FLUE CLEANER READING SR 86 BPM. KEPT NPO AT ALL TIMES. ALL NEEDS MET AT THIS TIME. SAFETY PRECAUTIONS IN PLACE AT ALL TIMES. BED IN LOWEST LOCKED POSITION, HOB ELEVATED, SIDE RAILS UP X2, AND CALL LIGHT AND TABLE WITHIN REACH. WILL ENDORSE TO ONCOMING NURSE FOR SARA.
[2021-04-27 07:03] LABS: BASOPHILS % (AUTO) 0.5 % (0.0-2.0); EOSINOPHILS % (AUTO) 0.3 % (0.0-6.0); HEMATOCRIT 27 % (33-45); HEMOGLOBIN 8.6 g/dL (11.5-14.8); LYMPHOCYTES # (AUTO) 0.4 K/uL (0.8-4.8); LYMPHOCYTES % (AUTO) 13.2 % (20.0-44.0); MEAN CORPUSCULAR HGB CONC 32 g/dl (31.0-36.0); MEAN CORPUSCULAR VOLUME 91 fL (82-100); MONOCYTES # (AUTO) 0.3 K/uL (0.1-1.30); MONOCYTES % (AUTO) 10.7 % (2.0-12.0); NEUTROPHILS # (AUTO) 2.2 K/uL (1.8-8.9); NEUTROPHILS % (AUTO) 75.3 % (43.0-81.0); PLATELET COUNT (AUTO) 132 K/uL (150-450); RED BLOOD CELL COUNT(AUTO) 2.98 MIL/uL (4.0-5.2); WHITE BLOOD COUNT (AUTO) 2.9 K/uL (4.3-11.0)
[2021-04-27 07:19] LABS: ALANINE AMINOTRANSFERASE 16 U/L (12-78); ALBUMIN 2.8 g/dL (3.4-5.0); ALKALINE PHOSPHATASE 78 U/L (46-116); ASPARTATE AMINOTRANSFERASE 11 U/L (15-37); BILIRUBIN,TOTAL 0.5 mg/dL (0.2-1.0); CALCIUM, SERUM 7.9 mg/dL (8.5-10.1); CARBON DIOXIDE 25 mmol/L (21-32); CHLORIDE 101 mmol/L (98-107); CREATININE 3.1 mg/dL (0.6-1.3); GLUCOSE 66 mg/dL (74-106); POTASSIUM 3.7 mmol/L (3.5-5.1); SODIUM SERUM 137 mmol/L (136-145); TOTAL PROTEIN, SERUM 5.7 g/dL (6.4-8.2); UREA NITROGEN, BLOOD 20 mg/dL (7-18)
[2021-04-27] MEDS: CALCIUM ACETATE 667 MG CAP/TAB PO SCH ×3 (08:00→18:00)
--- NOTE | 2021-04-27 08:40 | NUR ---
ms rn received on bed, sleeping,oriented to name,bilaterai arms soft wrist restrain on, no distress noted,all needs attended.
[2021-04-27 08:45] VITALS: BP 138/74
[2021-04-27] MEDS: LEVETIRACETAM (500MG) 1,000 MG in IV NS 0.9% 100 ML IV SCH ×2 (08:48→20:27)
[2021-04-27] MEDS: GABAPENTIN 100 MG CAPSULE PO SCH (09:00)
[2021-04-27] MEDS: CITRIC ACID/SODIUM CITRATE (BICITRA)15 ML UDC PO SCH ×4 (09:00→20:27)
--- NOTE | 2021-04-27 10:00 | NUR ---
ms rn held am meds,patient is not eating, risk of aspiration.
[2021-04-27 12:00] VITALS: BP 136/71
--- NOTE | 2021-04-27 12:00 | NUR ---
ms rn was seen by family member,all needs attended.
[2021-04-27] MEDS: ALBUMIN 25% 25 GM in PREMIX 1 EA IV PRN (15:21)
[2021-04-27 15:46] VITALS: BP 106/67
[2021-04-27] MEDS: EPOETIN ALFA (10,000 UNIT) 10,000 UNIT/ML VIAL IV PRN (17:19)
--- NOTE | 2021-04-27 17:20 | NUR ---
ms l d rn done ,patient is stable,all needs attended.
--- NOTE | 2021-04-27 18:39 | NUR ---
ms rn on bed, 1500ml output from hd.no distress noted.
[2021-04-27 20:00] VITALS: BP 133/68
[2021-04-27] MEDS: FAMOTIDINE/PF INJ 20 MG/2 ML VIAL IV SCH (21:31)
[2021-04-28] VITALS: BP 137/64
[2021-04-28 04:00] VITALS: BP 121/64
[2021-04-28 06:15] LABS: BASOPHILS % (AUTO) 0.7 % (0.0-2.0); CARBON DIOXIDE 25 mmol/L (21-32); CHLORIDE 100 mmol/L (98-107); CREATININE 2.5 mg/dL (0.6-1.3); EOSINOPHILS % (AUTO) 0.5 % (0.0-6.0); GLUCOSE 67 mg/dL (74-106); HEMATOCRIT 29 % (33-45); HEMOGLOBIN 9.2 g/dL (11.5-14.8); LYMPHOCYTES # (AUTO) 0.6 K/uL (0.8-4.8); LYMPHOCYTES % (AUTO) 15.9 % (20.0-44.0); MEAN CORPUSCULAR HGB CONC 32 g/dl (31.0-36.0); MEAN CORPUSCULAR VOLUME 92 fL (82-100); MONOCYTES # (AUTO) 0.3 K/uL (0.1-1.30); MONOCYTES % (AUTO) 8.6 % (2.0-12.0); NEUTROPHILS # (AUTO) 2.6 K/uL (1.8-8.9); NEUTROPHILS % (AUTO) 74.3 % (43.0-81.0); PLATELET COUNT (AUTO) 122 K/uL (150-450); POTASSIUM 3.9 mmol/L (3.5-5.1); RED BLOOD CELL COUNT(AUTO) 3.16 MIL/uL (4.0-5.2); SODIUM SERUM 134 mmol/L (136-145); UREA NITROGEN, BLOOD 15 mg/dL (7-18); WHITE BLOOD COUNT (AUTO) 3.5 K/uL (4.3-11.0)
[2021-04-28 06:21] LABS: ALANINE AMINOTRANSFERASE 16 U/L (12-78); ALBUMIN 2.9 g/dL (3.4-5.0); ALKALINE PHOSPHATASE 82 U/L (46-116); ASPARTATE AMINOTRANSFERASE 14 U/L (15-37); BILIRUBIN,TOTAL 0.6 mg/dL (0.2-1.0); TOTAL PROTEIN, SERUM 5.9 g/dL (6.4-8.2)
--- NOTE | 2021-04-28 06:50 | NUR ---
RN NOTE PT RESTING, EASILY AROUSABLE, ORIENTED TO NAME ONLY. CONT ON VENTURI MASK @15LPM. IV ACCESS: OLIVIER PICC LINE INTACT/PATENT/FLUSHES WELL. TELE MONITOR READING SR, HR 81. LAMBERTO.SOFT WRIST RESTRAINTS IN PLACE FOR SAFETY FROM PULLING LINES/TUBES. MONITORED Q15MIN AND NEEDED. SKIN/CIRCULATION WNL. PT IN NO ACUTE DISTRESS. SAFETY MEASURES MAINTAINED. ALL NEEDS ATTENDED TO.
--- NOTE | 2021-04-28 07:30 | NUR ---
GOVERNMENT PROPERTY INSPECTOR OPENING NOTES RECEIVED PATIENT ON BED RESTING AND A/O X2. ON O2 AT 4LPM VIA NASAL CANNULA TOLERATING WELL. NO SOB NOTED. NOT IN DISTRESS. WITH IV ACCESS AT LEFT UPPER ARM PICC LINE, SALINE LOCKED, PATENT AND INTACT. WITH LEFT CHEST WALL PACEMAKER. WITH RIGHT CHEST WALL PERMACATH FOR HD. SAFETY MEASURES IN PLACED. CALL LIGHT WITHIN REACH. BED ON LOWEST LOCKED POSITION, SIDE RAILS UP X2. WILL CONTINUE TO MONITOR.
[2021-04-28 08:00] VITALS: BP 130/64
[2021-04-28] MEDS: CALCIUM ACETATE 667 MG CAP/TAB PO SCH ×3 (08:00→21:59)
--- NOTE | 2021-04-28 08:20 | NUR ---
RN NOTES PATIENT PULLED OUT RIGHT CHEST WALL PERMACATH FOR HD. MADE AWARE.
[2021-04-28] MEDS: GABAPENTIN 100 MG CAPSULE PO SCH (09:00)
[2021-04-28] MEDS: CITRIC ACID/SODIUM CITRATE (BICITRA)15 ML UDC PO SCH ×4 (09:00→21:59)
[2021-04-28] MEDS: LEVETIRACETAM (500MG) 1,000 MG in IV NS 0.9% 100 ML IV SCH ×2 (09:58→21:43)
[2021-04-28 16:00] VITALS: BP 128/66
--- NOTE | 2021-04-28 16:00 | NUR ---
RN NOTES PLACED NG-TUBE AT RIGHT NARES FOR NOURISHMENT. TO ORDER XRAY TO CONFIRM PLACEMENT.
--- NOTE | 2021-04-28 19:20 | NUR ---
MS/RN OPENING NOTE RECEIVED PATIENT RESTING IN BED. AWAKE, ALERT AND ORIENTED TO NAME. NO S/SX OF PAIN AT THIS TIME. CONTINUES ON O2 4L VIA NC WITH NO S/SX OF RESPIRATORY DISTRESS NOTED. IV ACCESS TO LEFT UPPER ARM PICC LINE INTACT, PATENT AND SALINE LOCKED. OLD RIGHT CHEST WALL PERMACATH SITE WITH PRESSURE DRESSING IN PLACE. NO S/SX OF DRAINAGE NOTED. PATIENT CONTINUES ON NPO STATUS. NG TUBE TO RIGHT NARE IN PLACE. AWAITING CXR RESULTS. CONTINUES ON BILATERAL SOFT WRIST RESTRAINTS WITH POSITIVE CIRCULATION AND NO SKIN ISSUES NOTED. CALL LIGHT WITHIN REACH. ASPIRATION, FALL AND SAFETY PRECAUTIONS MAINTAINED. WILL CONTINUE TO MONITOR.
--- NOTE | 2021-04-28 19:30 | NUR ---
HEALTH CLINICIAN CLOSING NOTES PATIENT ON BED RESTING AND A/O X2-3. ON O2 AT 4LPM VIA NASAL CANNULA TOLERATING WELL. NO SOB NOTED. NOT IN DISTRESS. WITH IV ACCESS AT LEFT UPPER ARM PICC LINE, SALINE LOCKED, PATENT AND INTACT. WITH NG-TUBE AT RIGHT NARES FOR FEEDING AND MEDS. WITH LEFT CHEST WALL PACEMAKER. FOR HD CATH PLACEMENT FOR HEMODIALYSIS. SAFETY MEASURES IN PLACED. CALL LIGHT WITHIN REACH. BED ON LOWEST LOCKED POSITION, SIDE RAILS UP X2. WILL ENDORSE TO NEXT SHIFT FOR SARA.
[2021-04-28 20:15] VITALS: BP 134/69
[2021-04-28] MEDS: FAMOTIDINE/PF INJ 20 MG/2 ML VIAL IV SCH (21:43)
--- NOTE | 2021-04-28 21:48 | NUR ---
TELE/RN NOTE CXR RESULTS SHOW NGT IN CORRECT PLACE. NOTIFIED TURPENTINE FARMER MD VALDEZ WITH NEW ORDERS TO INITIATE TUBE FEED NEPRO WITH GOAL RATE OF 30CC/HR X 24HRS.
--- NOTE | 2021-04-28 21:59 | NUR ---
TELE/RN NOTE ADMINISTERED PHOSLO ORIGINALLY DUE AT 1800. ABLE TO GIVE THROUGH NGT AT THIS TIME. PATIENT HAD MISSED BOTH DOSES TODAY.
[2021-04-28] MEDS ORDERED: NEPRO 1,000 ML BOTTLE NG SCH (22:00)
--- NOTE | 2021-04-29 06:20 | NUR ---
MS/RN CLOSING NOTE PATIENT CURRENTLY RESTING IN BED. AWAKE, ALERT AND ORIENTED TO NAME. NO S/SX OF PAIN AT THIS TIME. CONTINUES ON O2 4L VIA NC WITH NO S/SX OF RESPIRATORY DISTRESS NOTED. IV ACCESS TO LEFT UPPER ARM PICC LINE INTACT, PATENT AND SALINE LOCKED. OLD RIGHT CHEST WALL PERMACATH SITE WITH PRESSURE DRESSING IN PLACE. NO S/SX OF DRAINAGE NOTED. PATIENT STARTED ON TUBE FEEDING. NG TUBE TO RIGHT NARE IN PLACE WITH NEPRO RUNNING AT 20ML/HR WITH GOAL RATE OF 30ML/HR X 24HRS. CONTINUES ON BILATERAL SOFT WRIST RESTRAINTS WITH POSITIVE CIRCULATION AND NO SKIN ISSUES NOTED. CALL LIGHT WITHIN REACH. ASPIRATION, FALL AND SAFETY PRECAUTIONS MAINTAINED. WILL ENDORSE PLAN OF CARE TO ONCOMING SHIFT.
--- NOTE | 2021-04-29 07:38 | NUR ---
RN OPENING NOTES PATIENT AWAKE IN BED RESTING, A/O X1. NO S/S OF PAIN NOTED AT THIS TIME. ON 4L OXYGEN VIA NC, NO DISTRESS OR SHORTNESS OF BREATH NOTED. IV ACCESS OLIVIER PICC LINE, INTACT, PATENT AND FLUSHING WELL. PATIENT HAVE NGT R NARE, IN PLACE, NEPRO @ 25ML/HR TOLERATING WELL. FALL AND SAFETY MEASURES IN PLACE, BED ALARM ON, BED IN LOW AND LOCK POSITION, CALL LIGHT AND TABLE WITHIN EASY REACH, SIDE RAILS UP X2. WILL CONTINUE TO MONITOR.
[2021-04-29 08:00] VITALS: BP 136/66
[2021-04-29] MEDS: CALCIUM ACETATE 667 MG CAP/TAB PO SCH ×3 (08:45→17:18)
[2021-04-29] MEDS: CITRIC ACID/SODIUM CITRATE (BICITRA)15 ML UDC PO SCH ×4 (08:45→21:30)
[2021-04-29] MEDS: GABAPENTIN 100 MG CAPSULE PO SCH (08:45)
[2021-04-29] MEDS: LEVETIRACETAM (500MG) 1,000 MG in IV NS 0.9% 100 ML IV SCH (08:45)
--- NOTE | 2021-04-29 12:20 | NUR ---
RN NOTES PATIENT SON NAMED DENISHA CALLED, HE WANT TO TALK TO DRI[employer] PRESS OPERATOR AND THE DOCTOR. THE DRILL PRESS OPERATOR NUMBER WAS PROVIDED AND A MESSAGE WAS SENT TO THE DOCTOR TO PLEASE CALL HIM.
[2021-04-29 12:41] LABS: BASOPHILS % (AUTO) 0.7 % (0.0-2.0); EOSINOPHILS % (AUTO) 0.5 % (0.0-6.0); HEMATOCRIT 28 % (33-45); HEMOGLOBIN 8.7 g/dL (11.5-14.8); LYMPHOCYTES # (AUTO) 0.5 K/uL (0.8-4.8); LYMPHOCYTES % (AUTO) 18.2 % (20.0-44.0); MEAN CORPUSCULAR HGB CONC 32 g/dl (31.0-36.0); MEAN CORPUSCULAR VOLUME 92 fL (82-100); MONOCYTES # (AUTO) 0.3 K/uL (0.1-1.30); NEUTROPHILS # (AUTO) 2.1 K/uL (1.8-8.9); NEUTROPHILS % (AUTO) 69.6 % (43.0-81.0); PLATELET COUNT (AUTO) 122 K/uL (150-450); RED BLOOD CELL COUNT(AUTO) 3.01 MIL/uL (4.0-5.2)
[2021-04-29 12:49] LABS: CALCIUM, SERUM 8.2 mg/dL (8.5-10.1); CARBON DIOXIDE 27 mmol/L (21-32); CHLORIDE 101 mmol/L (98-107); CREATININE 3.6 mg/dL (0.6-1.3); GLUCOSE 79 mg/dL (74-106); POTASSIUM 3.8 mmol/L (3.5-5.1); SODIUM SERUM 136 mmol/L (136-145); UREA NITROGEN, BLOOD 23 mg/dL (7-18)
[2021-04-29 12:59] LABS: ALANINE AMINOTRANSFERASE 13 U/L (12-78); ALBUMIN 2.7 g/dL (3.4-5.0); ALKALINE PHOSPHATASE 79 U/L (46-116); ASPARTATE AMINOTRANSFERASE 12 U/L (15-37); BILIRUBIN,TOTAL 0.4 mg/dL (0.2-1.0); TOTAL PROTEIN, SERUM 5.3 g/dL (6.4-8.2)
--- NOTE | 2021-04-29 14:30 | NUR ---
RN NOTE DR. PARADA CALLED AND GAVE THE FOLLOWING ORDERS OVER THE PHONE: NPO AFTER MIDNIGHT, CMP IN THE MORNING, CONSENT FOR TUNNELED DIALYSIS CATHETER. PROCEDURE WILL BE TOMORROW, POSSIBLE DURING THE AFTERNOON.
[2021-04-29 16:00] VITALS: BP 114/56
--- NOTE | 2021-04-29 18:35 | NUR ---
RN CLOSING NOTES PATIENT AWAKE IN BED RESTING, A/O X1. NO S/S OF PAIN NOTED AT THIS TIME. ON 4L OXYGEN VIA NC, NO DISTRESS OR SHORTNESS OF BREATH NOTED. IV ACCESS OLIVIER PICC LINE, INTACT, PATENT AND FLUSHING WELL. PATIENT HAVE NGT R NARE, IN PLACE, NEPRO @ 30ML/HR TOLERATING WELL. FALL AND SAFETY MEASURES IN PLACE, BED ALARM ON, BED IN LOW AND LOCK POSITION, CALL LIGHT AND TABLE WITHIN EASY REACH, SIDE RAILS UP X2. WILL ENDORSE TO CONTROL CHEMIST.
--- NOTE | 2021-04-29 19:45 | NUR ---
MS OPENING NOTE PATIENT RECEIVED AWAKE IN BED. A/OX1. NO S/S OF DISTRESS, BREATHING SYMMETRICAL. SAFETY MEASURES IN PLACE: BED AT LOWEST POSITION, RAILS UP X2, CALL WESLEY WITHIN REACH. WILL CONTINUE TO MONITOR.
[2021-04-29] MEDS: LEVETIRACETAM SOL (5 ML) 100 MG/ML UDC GT SCH (21:30)
[2021-04-29] MEDS: FAMOTIDINE/PF INJ 20 MG/2 ML VIAL IV SCH (21:30)
[2021-04-30 06:03] LABS: BASOPHILS % (AUTO) 0.5 % (0.0-2.0); EOSINOPHILS % (AUTO) 0.6 % (0.0-6.0); HEMATOCRIT 28 % (33-45); LYMPHOCYTES # (AUTO) 0.7 K/uL (0.8-4.8); LYMPHOCYTES % (AUTO) 13.8 % (20.0-44.0); MEAN CORPUSCULAR HGB CONC 32 g/dl (31.0-36.0); MEAN CORPUSCULAR VOLUME 92 fL (82-100); MONOCYTES # (AUTO) 0.4 K/uL (0.1-1.30); MONOCYTES % (AUTO) 7.1 % (2.0-12.0); NEUTROPHILS # (AUTO) 4.2 K/uL (1.8-8.9); PLATELET COUNT (AUTO) 138 K/uL (150-450); RED BLOOD CELL COUNT(AUTO) 3.09 MIL/uL (4.0-5.2); WHITE BLOOD COUNT (AUTO) 5.4 K/uL (4.3-11.0)
--- NOTE | 2021-04-30 06:25 | NUR ---
MS RN CLOSING NOTE PATIENT AWAKE IN BED. A/OX1. NO S/S OF DISTRESS, BREATHING SYMMETRICAL. OLIVIER PICC LINE SL INTACT AND PATENT. SAFETY MEASURES IN PLACE: BED AT LOWEST POSITION, RAILS UP X2, CALL WESLEY WITHIN REACH. WILL ENDORSE TO FOLLOWING SHIFT FOR SARA.
[2021-04-30 07:35] LABS: ALANINE AMINOTRANSFERASE 17 U/L (12-78); ALKALINE PHOSPHATASE 96 U/L (46-116); ASPARTATE AMINOTRANSFERASE 13 U/L (15-37); BILIRUBIN,TOTAL 0.4 mg/dL (0.2-1.0); CALCIUM, SERUM 8.3 mg/dL (8.5-10.1); CHLORIDE 101 mmol/L (98-107); CREATININE 4.1 mg/dL (0.6-1.3); GLUCOSE 128 mg/dL (74-106); POTASSIUM 3.6 mmol/L (3.5-5.1); SODIUM SERUM 137 mmol/L (136-145); TOTAL PROTEIN, SERUM 5.8 g/dL (6.4-8.2); UREA NITROGEN, BLOOD 27 mg/dL (7-18)
[2021-04-30 07:45] LABS: CARBON DIOXIDE 27 mmol/L (21-32)
--- NOTE | 2021-04-30 07:46 | NUR ---
RN OPENING NOTE Patient in bed, awake. A/O x 1. On O2 at 4 LPM via NC, no SOB or s/s of distress noted. IV access on OLIVIER PICC line, SL intact and patent. NGT dislodged. Bilateral soft restraints on both wrists noted. Safety precautions in place: bed in low, locked position; siderails up x 2; call light within reach. Will continue to monitor.
[2021-04-30 08:00] VITALS: BP 124/70
[2021-04-30] MEDS: CALCIUM ACETATE 667 MG CAP/TAB PO SCH ×3 (08:00→18:00)
[2021-04-30] MEDS: LEVETIRACETAM SOL (5 ML) 100 MG/ML UDC GT SCH ×2 (08:30→21:00)
[2021-04-30] MEDS: CITRIC ACID/SODIUM CITRATE (BICITRA)15 ML UDC PO SCH ×4 (08:30→21:00)
[2021-04-30] MEDS: GABAPENTIN 100 MG CAPSULE PO SCH (08:30)
--- NOTE | 2021-04-30 14:00 | NUR ---
RN NOTE Patient brought to OR for procedure (tunnelled dialysis catheter placement).
[2021-04-30] MEDS ORDERED: HEPARIN SODIUM, PORCINE 1,000 UNIT/ML VIAL ONE (14:05)
[2021-04-30] MEDS ORDERED: BUPIVACAINE 0.5 % PF 150 MG/30 ML VIAL ONE (14:05)
[2021-04-30] MEDS ORDERED: LIDOCAINE 1% INJ 50 ML MDV IJ ONE (14:05)
[2021-04-30] MEDS ORDERED: IOHEXOL 240MG/ML 50 ML IV ONE (14:08)
[2021-04-30] MEDS ORDERED: CLINDAMYCIN 900 MG/6 ML VIAL ONE (14:52)
--- NOTE | 2021-04-30 15:32 | NUR ---
RN NOTE Patient pulled out NGT early this AM, Dr. Villafana ordered to leave it out until swallow eval tomorrow.
--- NOTE | 2021-04-30 16:48 | NUR ---
RN NOTE Patient brought back to 309 in stable condition, VS as follows: BP 120/62, HR 82, RR 20, SPO2 100 % Addendum: 04/30/21 at 1651 by JELANI QUIJANO RN ADD: Temp 97.7. S/P placement of Tunnelled dialysis catheter on the Right chest. Will continue to monitor patient.
[2021-04-30 18:00] VITALS: BP 120/62
--- NOTE | 2021-04-30 18:50 | NUR ---
RN CLOSING NOTE Patient in bed, asleep. A/O x 1. On O2 at 4 LPM via NC, no SOB or s/s of distress noted. IV access on OLIVIER PICC line, SL intact and patent. RCW portacath in place, ongoing hemodialysis. Bilateral soft restraints on both wrists noted. NPO status maintained until swallow eval tomorrow. Patient kept clean and dry. Safety precautions maintained: bed in low, locked position; siderails up x 2; call light within reach. Will endorse to assistant casino shift manager nurse for SARA.
--- NOTE | 2021-04-30 19:27 | NUR ---
RN OPENING NOTE Patient in bed, asleep. A/O x 1. On O2 at 4 LPM via NC, no SOB or s/s of distress noted. IV access on OLIVIER PICC line, SL intact and patent. RCW portacath in place, ongoing hemodialysis. Bilateral soft restraints on both wrists noted. NPO status maintained until swallow eval tomorrow. Patient kept clean and dry. Safety precautions maintained: bed in low, locked position; siderails up x 2; call light within reach. Will continue to monitor.
[2021-04-30 20:00] VITALS: BP 118/59
[2021-04-30] MEDS: CLINDAMYCIN 600 MG in IV D5W 50 ML IV SCH (22:33)
[2021-04-30] MEDS: FAMOTIDINE/PF INJ 20 MG/2 ML VIAL IV SCH (22:33)
[2021-05-01] VITALS (45 sets, daily range): BP systolic 71–136; BP diastolic 34–97
[2021-05-01 02:53] LABS: ABG BASE EXCESS -2.8 mmol/L; ABG OXYGEN SATURATION 66.7 % (92.0-98.5); ABG PCO2 49.5 mmHg (35.0-45.0); ABG PH 7.299 (7.350-7.450); ABG PO2 36.5 mmHg (75.0-100.0); AaDO2 162.8 mmHg; MetHb 0.3 % (0.0-1.5); O2Hb 65.8 % (94.0-97.0); SITE, ABG Right Radial; VENT MODE, BG 4 LPM NC
[2021-05-01] MEDS: CLINDAMYCIN 600 MG in IV D5W 50 ML IV SCH (04:34)
[2021-05-01 06:33] LABS: BASOPHILS % (AUTO) 1.3 % (0.0-2.0); EOSINOPHILS % (AUTO) 1.4 % (0.0-6.0); HEMATOCRIT 27 % (33-45); HEMOGLOBIN 8.5 g/dL (11.5-14.8); LYMPHOCYTES % (AUTO) 27.2 % (20.0-44.0); MEAN CORPUSCULAR HGB CONC 31 g/dl (31.0-36.0); MEAN CORPUSCULAR VOLUME 93 fL (82-100); MONOCYTES # (AUTO) 0.3 K/uL (0.1-1.30); MONOCYTES % (AUTO) 9.3 % (2.0-12.0); NEUTROPHILS # (AUTO) 2.2 K/uL (1.8-8.9); NEUTROPHILS % (AUTO) 60.8 % (43.0-81.0); PLATELET COUNT (AUTO) 99 K/uL (150-450); RED BLOOD CELL COUNT(AUTO) 2.92 MIL/uL (4.0-5.2); WHITE BLOOD COUNT (AUTO) 3.7 K/uL (4.3-11.0)
--- NOTE | 2021-05-01 06:59 | NUR ---
RN CLOSING NOTE Patient in bed, asleep. A/O x 1. On O2 at 4 LPM via NC, no SOB or s/s of distress noted. IV access on OLIVIER PICC line, SL intact and patent. RCW portacath in place, ongoing hemodialysis. Bilateral soft restraints on both wrists noted. NPO status maintained until swallow eval today. Patient kept clean and dry. Safety precautions maintained: bed in low, locked position; siderails up x 2; call light within reach. Will endorse care to day shift nurse.
[2021-05-01 07:15] LABS: ALANINE AMINOTRANSFERASE 15 U/L (12-78); ALBUMIN 2.8 g/dL (3.4-5.0); ALKALINE PHOSPHATASE 88 U/L (46-116); ASPARTATE AMINOTRANSFERASE 16 U/L (15-37); BILIRUBIN,TOTAL 0.4 mg/dL (0.2-1.0); CALCIUM, SERUM 8.5 mg/dL (8.5-10.1); CARBON DIOXIDE 29 mmol/L (21-32); CHLORIDE 102 mmol/L (98-107); GLUCOSE 89 mg/dL (74-106); POTASSIUM 3.5 mmol/L (3.5-5.1); SODIUM SERUM 139 mmol/L (136-145); TOTAL PROTEIN, SERUM 5.7 g/dL (6.4-8.2); UREA NITROGEN, BLOOD 18 mg/dL (7-18)
[2021-05-01] MEDS: CALCIUM ACETATE 667 MG CAP/TAB PO SCH ×3 (08:00→17:41)
[2021-05-01] MEDS: LEVETIRACETAM SOL (5 ML) 100 MG/ML UDC GT SCH (08:41)
[2021-05-01] MEDS: GABAPENTIN 100 MG CAPSULE PO SCH (08:41)
[2021-05-01] MEDS: CITRIC ACID/SODIUM CITRATE (BICITRA)15 ML UDC PO SCH ×4 (08:41→21:00)
--- NOTE | 2021-05-01 09:00 | NUR ---
m/s regional merchandising manager: notes meds held, awaiting for swallow eval. will continue to monitor.
--- NOTE | 2021-05-01 09:15 | NUR ---
m/s underground roof bolter: notes dr. hall called with order to transfer pt to icu for bipap support.
--- NOTE | 2021-05-01 09:22 | NUR ---
m/s teacher of the emotionally disturbed: notes dr. hall notified and informed md that pt code status is dnr/dni. dr. hall says still icu due to high aspiration risk. cn made aware.
--- NOTE | 2021-05-01 09:30 | NUR ---
m/s safety instructor: notes per rn supervisor evaporator, moving pt around and then she can go to room 263. cn aware.
--- NOTE | 2021-05-01 10:20 | NUR ---
RN NOTE RECEIVED PT FROM 3W, RN GIVEN REPORT AT BEDSIDE. RECEIVED PT IN BED, A/OX0, PT ON 4 L NC, RT AT BEDSIDE TO INITIATE BIPAP. OLIVIER PICC LINE INTACT AND PATENT FLUSHING WELL, R UPPER CHEST PORTE CATH NOTED. BILATERAL SOFT RESTRAIN ON BOTH WRIST AND PT NPO STATUS WAITING FOR SWALLOW EVAL. SAFETY PERCUSSION IMPLEMENTED, WILL SARA
--- NOTE | 2021-05-01 10:30 | NUR ---
m/s evaluation analyst: notes report given to fany (rn) for continuity of care. edel (daughter) notified and made aware re: transfer to icu for bipap support, spoke to her over the phone.
--- NOTE | 2021-05-01 12:53 | NUR ---
RN NOTE HOLD PHOS LO CALCIUM ACETATE AND SODIUM CITRATE AND CITRIC ACID ON HOD DUE TO WAITING FOR [facility] EVAL
[2021-05-01] MEDS: ALBUMIN 25% 25 GM in PREMIX 1 EA IV PRN (14:28)
--- NOTE | 2021-05-01 17:42 | NUR ---
RN NOTE HOLD PHOS LO CALCIUM ACETATE AND SODIUM CITRATE AND CITRIC ACID DUE TO WAITING FOR SALLOW EVAL AND PT IS NPO A/OX0
--- NOTE | 2021-05-01 18:49 | NUR ---
RN NOTE REMAIN PT IN BED, A/OX0, PT ON BIPAB AND TOLERATING WELL, OLIVIER PICC LINE INTACT AND PATENT FLUSHING WELL, R UPPER CHEST PORTE CATH NOTED. BILATERAL SOFT RESTRAIN ON BOTH WRIST AND PT NPO STATUS WAITING FOR SWALLOW EVAL. SAFETY PERCUSSION IMPLEMENTED, HD NURSE REPORT 3 LITER OUTPUT, WILL ENDORSE SARA TO NOC SHIFT Addendum: 05/01/21 at 1935 by MORELIA ROSENBAUM RN R UPPER CHEST HD CATHETER
--- NOTE | 2021-05-01 19:43 | NUR ---
BUILDING MOVER. INITIAL ASSESSMENT, RECEIVED THE PT REST IN BED. OPEN EYES, DOES NOT FOLLOW COMMANDS. LETHARGIC, RN TRAVEL SHOWING AFIB ALL BODY BRUISE NOTED. PT IS ON BLOOD THINNER. BIPAPA ON. 12/08,RATE IS 16,FIO2 50%SAT 100%. HOB ELEVATED. NPO. IV RT SUBCLAVIAN HD CATH, LT UPPER ARM PICC LINE. WILL CONTINUE TO MONITOR VITALS.
--- NOTE | 2021-05-01 19:55 | NUR ---
RT NOTE LATE ENTRY Pt rec'd on bipap on noted settings as charted. mepilex in place and no scarring or redness noted. Pt shows no signs of resp distress or sob. Bipap plugged into red outlet. Alarms are set and audible. Isabella clarke @ bedside. Will continue to monitor closely. Addendum: 05/02/21 at 0130 by GIA PEDERSON RT Amended: Links added.
--- NOTE | 2021-05-01 21:00 | NUR ---
MANUFACTURER. PT WENT ON A FIB WITH RVR. RATE WAS 130. NOTIFIED MD MENDEZ, NO ORDER RECEIVED,
[2021-05-01] MEDS: FAMOTIDINE (20 MG) 20 MG TABLET PO SCH (22:00)
[2021-05-01] MEDS ORDERED: LEVETIRACETAM (500MG) 500 MG/5 ML VIAL IV ONE (23:08)
[2021-05-02] VITALS (24 sets, daily range): BP systolic 102–144; BP diastolic 62–95
[2021-05-02] MEDS ORDERED: LEVETIRACETAM (500MG) 500 MG in IV NS 0.9% 100 ML IV SCH ×2
--- NOTE | 2021-05-02 00:57 | NUR ---
RT NOTE FIO2 TITRATED TO 40%. NO RESP DISTRESS OR SOB. O2 SATURATION @ 99%. RN AWARE. WILL CONTINUE TO MONITOR Addendum: 05/02/21 at 0127 by GIA PEDERSON RT Amended: Links added.
[2021-05-02 04:43] LABS: BASOPHILS % (AUTO) 1.1 % (0.0-2.0); EOSINOPHILS % (AUTO) 1.5 % (0.0-6.0); HEMATOCRIT 26 % (33-45); HEMOGLOBIN 8.3 g/dL (11.5-14.8); LYMPHOCYTES # (AUTO) 0.5 K/uL (0.8-4.8); LYMPHOCYTES % (AUTO) 17.7 % (20.0-44.0); MEAN CORPUSCULAR HGB CONC 32 g/dl (31.0-36.0); MEAN CORPUSCULAR VOLUME 92 fL (82-100); MONOCYTES # (AUTO) 0.2 K/uL (0.1-1.30); MONOCYTES % (AUTO) 8.7 % (2.0-12.0); PLATELET COUNT (AUTO) 84 K/uL (150-450); RED BLOOD CELL COUNT(AUTO) 2.82 MIL/uL (4.0-5.2); WHITE BLOOD COUNT (AUTO) 2.8 K/uL (4.3-11.0)
[2021-05-02 05:06] LABS: ALANINE AMINOTRANSFERASE 8 U/L (12-78); ALBUMIN 3.3 g/dL (3.4-5.0); ALKALINE PHOSPHATASE 88 U/L (46-116); ASPARTATE AMINOTRANSFERASE 17 U/L (15-37); BILIRUBIN,TOTAL 0.5 mg/dL (0.2-1.0); CARBON DIOXIDE 29 mmol/L (21-32); CHLORIDE 102 mmol/L (98-107); CREATININE 2.5 mg/dL (0.6-1.3); GLUCOSE 72 mg/dL (74-106); MAGNESIUM 2.1 mg/dL (1.8-2.4); PHOSPHORUS 3.2 mg/dL (2.5-4.9); POTASSIUM 3.5 mmol/L (3.5-5.1); SODIUM SERUM 139 mmol/L (136-145); UREA NITROGEN, BLOOD 12 mg/dL (7-18)
--- NOTE | 2021-05-02 05:26 | NUR ---
EXHIBIT CARPENTER. AM CARE GIVEN. REMAINING SAME BIPAP SETTINGS TOLERATEED WELL. SAT 99%. NO ACUTE DISTRESS NOTED. COMMERCIAL INSTALLER SHOWING A FIB. AFEBRILE. WILL CONTINUE TO MONITOR VITALS.
--- NOTE | 2021-05-02 05:36 | NUR ---
RT NOTE FIO2 TITRATED TO 30%. SPO2 @ 100%. PT SHOWS NO SIGNS OF RESP DISTRESS OR SOB. RN AWARE. WILL CONTINUE TO MONITOR CLOSELY. Addendum: 05/02/21 at 0537 by GIA PEDERSON RT Amended: Links added.
--- NOTE | 2021-05-02 06:16 | NUR ---
RADIOISOTOPE TECHNOLOGIST. PT MORE AWAKE, TODAY. STILL BIPAP ON. EKG DONE.
--- NOTE | 2021-05-02 07:15 | NUR ---
RN NOTES RECEIVED PT IN BED. ON BIPAP. TOLERATING SETTINGS WELL. NO SOB OR ANY S/S OF DISTRESS. IV ACCESS INTACT, PATENT AND FLUSHED. MITTENS IN PLACE. SAFETY MEASURES IN PLACE. CALL LIGHT WITHIN REACH. BED LOCKED AND IN LOWEST POSITION WITH SIDE RAILS UP X3. WILL CONTINUE TO MONITOR.
[2021-05-02] MEDS: CALCIUM ACETATE 667 MG CAP/TAB PO SCH ×3 (08:00→17:49)
--- NOTE | 2021-05-02 08:25 | NUR ---
RT NOTE PATIENT TAKEN OFF BIPAP AND PLACED ON 2LPM NC PER MD ORDER. ABG IN 1 HOUR. WILL CONTINUE TO MONITOR CLOSELY.
[2021-05-02] MEDS: GABAPENTIN 100 MG CAPSULE PO SCH (09:00)
[2021-05-02] MEDS: CITRIC ACID/SODIUM CITRATE (BICITRA)15 ML UDC PO SCH ×4 (09:00→21:00)
[2021-05-02] MEDS ORDERED: AMIODARONE 450 MG in IV D5W 250 ML IV PRN (09:00)
[2021-05-02] MEDS ORDERED: AMIODARONE 150 MG in IV D5W 100 ML IV ONE (09:00)
--- NOTE | 2021-05-02 09:30 | NUR ---
RT NOTE ABG RESULTS SHOWN TO DR. BARNARD. PT ON 2LPM NC. JULIETTE CRAWLEY NOTIFIED AND AWARE.
[2021-05-02] MEDS: AMIODARONE 450 MG in IV D5W 241 ML IV PRN ×2 (10:01→17:49)
[2021-05-02] MEDS: LEVETIRACETAM (500MG) 500 MG in IV NS 0.9% 100 ML IV SCH ×2 (10:11→22:02)
[2021-05-02] MEDS: IV NS 0.9% 250 ML IV PRN ×2 (10:14→22:02)
--- NOTE | 2021-05-02 16:32 | NUR ---
RN NOTES HD STARTED. VS STABLE.
--- NOTE | 2021-05-02 18:15 | NUR ---
RN NOTES HD DONE. 1.8L OUTPUT. VS STABLE.
--- NOTE | 2021-05-02 19:16 | NUR ---
RN NOTES NO SIGNIFICANT CHANGES THROUGHOUT THE SHIFT. AMIO DRIP @0.5. KEPT CLEAN AND COMFORTABLE. 1.8L OUTPUT ON HD. NO S/S OF DISTRESS. SAFETY MEASURES IN PLACE. ENDORSED TO NIGHT RN FOR SARA.
--- NOTE | 2021-05-02 20:08 | NUR ---
AIRCRAFT INSTRUMENT TESTER. RECEIVED THE PT REST IN BED. AWAKE, ALERT, CONFUSED, HOB ELEVATED, OXYGEN 2L VIA NASAL CANNULA. SAT 98%. NO ACUTE DISTRESS NOTED. DIRECTOR REACTOR PROJECTS SHOWING, A FIB, IV LT UPPER ARM PICC LINE. AMIODARONE 0.5 MG/MIN,PT IS NPO. RT SUBCLAVIAN HD CATH. WILL CONTINUE TO MONITOR VITALS.
[2021-05-02] MEDS: FAMOTIDINE (20 MG) 20 MG TABLET PO SCH (22:00)
[2021-05-03] VITALS (65 sets, daily range): BP systolic 116–162; BP diastolic 58–102
[2021-05-03 04:51] LABS: CALCIUM, SERUM 8.2 mg/dL (8.5-10.1); CARBON DIOXIDE 26 mmol/L (21-32); CHLORIDE 100 mmol/L (98-107); CREATININE 2.4 mg/dL (0.6-1.3); GLUCOSE 85 mg/dL (74-106); POTASSIUM 3.5 mmol/L (3.5-5.1); SODIUM SERUM 136 mmol/L (136-145); UREA NITROGEN, BLOOD 13 mg/dL (7-18)
[2021-05-03 04:52] LABS: BASOPHILS % (AUTO) 1.5 % (0.0-2.0); EOSINOPHILS % (AUTO) 0.7 % (0.0-6.0); HEMATOCRIT 25 % (33-45); LYMPHOCYTES # (AUTO) 0.6 K/uL (0.8-4.8); LYMPHOCYTES % (AUTO) 19.2 % (20.0-44.0); MEAN CORPUSCULAR HGB CONC 32 g/dl (31.0-36.0); MEAN CORPUSCULAR VOLUME 91 fL (82-100); MONOCYTES # (AUTO) 0.3 K/uL (0.1-1.30); MONOCYTES % (AUTO) 9.6 % (2.0-12.0); NEUTROPHILS # (AUTO) 2.2 K/uL (1.8-8.9); PLATELET COUNT (AUTO) 88 K/uL (150-450); RED BLOOD CELL COUNT(AUTO) 2.74 MIL/uL (4.0-5.2); WHITE BLOOD COUNT (AUTO) 3.1 K/uL (4.3-11.0)
--- NOTE | 2021-05-03 05:20 | NUR ---
ELECTRIC BLANKET PACKER. AM CARE GIVEN. REMAINING SAME BIPAP SETTINGS TOLERATED WELL. SAT 99%. NO ACUTE DISTRESS NOTED, CARDIAC MONITYOR SHOWING S TACH. HOB ELEVATED, LAMBERTO SOFTWRISTRESTRAINT CHECKED AND RELEASED, NO INJURY OR REDNESS NOTED. WILL CONTINUE TO MONITOR VITALS.
[2021-05-03] MEDS: CALCIUM ACETATE 667 MG CAP/TAB PO SCH ×3 (08:00→16:53)
--- NOTE | 2021-05-03 08:59 | NUR ---
rn notes patient was npo, per Dr Velasquez get TO order SE for aspiration precaution. order taken and carried out.
[2021-05-03] MEDS: LEVETIRACETAM (500MG) 500 MG in IV NS 0.9% 100 ML IV SCH ×2 (09:19→21:15)
[2021-05-03] MEDS: AMIODARONE 450 MG in IV D5W 241 ML IV PRN ×2 (09:28→22:50)
[2021-05-03] MEDS: PANTOPRAZOLE 40 MG/PACK PACK NG SCH (10:06)
[2021-05-03] MEDS: CITRIC ACID/SODIUM CITRATE (BICITRA)15 ML UDC PO SCH ×4 (10:06→21:15)
[2021-05-03] MEDS: GABAPENTIN 100 MG CAPSULE PO SCH (10:06)
[2021-05-03 10:08] LABS: ABG BASE EXCESS 1.3 mmol/L; ABG PCO2 74.7 mmHg (35.0-45.0); ABG PH 7.221 (7.350-7.450); COHb 0.1 % (0.5-1.5); MetHb 0.3 % (0.0-1.5); O2Hb 95.4 % (94.0-97.0); SITE, ABG Right Radial
--- NOTE | 2021-05-03 10:16 | NUR ---
rn notes patient a/o x2/3 pass swallow evaluation at this time , with SE tech now pureed diet with thickener. patient sitting in the bed 90 degree, slow eater. due medication administered. will follow up.
[2021-05-03] MEDS ORDERED: ENSURE ENLIVE 237 ML LIQUID (VANILLA) PO SCH (10:30)
[2021-05-03 10:56] LABS: ABG BASE EXCESS -2.1 mmol/L; ABG OXYGEN SATURATION 93.9 % (92.0-98.5); ABG PCO2 49.8 mmHg (35.0-45.0); ABG PH 7.306 (7.350-7.450); ABG PO2 70.4 mmHg (75.0-100.0); AaDO2 70.5 mmHg; COHb 0.7 % (0.5-1.5); MetHb 0.3 % (0.0-1.5); SITE, ABG Right Radial; VENT MODE, BG 2LPM NC
[2021-05-03] MEDS ORDERED: HEPARIN SODIUM, PORCINE 5000 UNITS/1 ML VIAL IV ONE ×2 (11:00)
--- NOTE | 2021-05-03 11:00 | NUR ---
rn notes Started heparin drip at this time 1100u, on left PICC line area, patient a/o x2/3, offered some snacks .
[2021-05-03] MEDS: HEPARIN INFUSION/D5W 500 ML IV PRN (11:08)
--- NOTE | 2021-05-03 13:00 | NUR ---
RN NOTES PATIENT GETTING HD AT THIS TIME.
--- NOTE | 2021-05-03 15:30 | NUR ---
RN NOTES HEMODIALYSIS FINISHED AT THIS TIME OUTPUT WAS 2000ML, ASSIST PATIENT EATING LUNCH.
[2021-05-03] MEDS: ENSURE ENLIVE 237 ML LIQUID (VANILLA) PO SCH (16:53)
--- NOTE | 2021-05-03 18:00 | NUR ---
rn notes get PTT result grater 170 sec, hold heparin drip and notified hospitalist PRINCESS Westfall. Get TO new order recheck PTT within one hr, order taken and carried out.
--- NOTE | 2021-05-03 19:00 | NUR ---
RN NOTE RECEIVED PATIENT IN BED, AO X 2, IN NO S/SX OF ACUTE DISTRESS AT THIS TIME. SATURATION AT 100% ON 2L VIA NC, AFIB ON THE MONITOR, HR IS 118. NOTED OLIVIER PICC LINE, ALL HUBS PATENT AND FLUSHING WELL WITH AMIODARONE DRIP INFUSING AT 0.5 MG/MIN, PERMA CATH AT R CHEST WALL IN PLACE, NO S/S OF INFECTION. SOFT WRIST RESTRAINTS NOTED ON B WRISTS, SKIN AND CIRCULATION WAS CHECKED AND ARE WNL. SAFETY MEASURES IMPLEMENTED. PATIENT BED ALARM IS ON. HEAD OF BED ELEVATED. BED IS LOCKED, IN LOWEST POSITION AND SIDE RAILS UP. CALL LIGHT WITHIN REACH OF THE PATIENT. WILL CONTINUE TO MONITOR AND REASSESS FOR ANY CHANGES.
--- NOTE | 2021-05-03 20:00 | NUR ---
RN NOTE PER WAITANGI TRIBUNAL MEMBER ELIZABETH INITIAL BLOOD DRAW FOR PTT WAS INSUFFICIENT, RE-DRAW NECESSARY. EMPHASIZED TO WAITANGI TRIBUNAL MEMBER IMPORTANCE OF DRAWING BLOOD PERIPHERALLY ON R ARM(OPPOSITE ARM FROM IV LINE).
[2021-05-03] MEDS: EPOETIN ALFA (10,000 UNIT) 10,000 UNIT/ML VIAL IV PRN (20:05)
--- NOTE | 2021-05-03 20:50 | NUR ---
RN NOTE PTT RESULTED 71.4. RESTARTED HEPARIN INFUSION TO 1000 UNITS/HR FROM 1100 UNITS/HR PREVIOUSLY, PER PROTOCOL DECREASE DRIP BY 2 UNITS/KG/PP=181 UNITS. TIEING MACHINE OPERATORMISBAH RUELAS
--- NOTE | 2021-05-03 21:00 | NUR ---
RN NOTE NOTED TEMP 100.3 DEG, PRN TYLENOL 650 MG ADMINISTERED ORDERED. COOLING MEASURES PROVIDED. WILL CONT TO MONITOR
[2021-05-03] MEDS: FAMOTIDINE (20 MG) 20 MG TABLET PO SCH (21:15)
--- NOTE | 2021-05-03 23:30 | NUR ---
PT PLACED ON NOC BIPAP, RN NOTIFIED.
--- NOTE | 2021-05-03 23:30 | NUR ---
RN NOTE ACCUCHECK RESULTED 131 MG/DL, NO COVERAGE GIVEN PATIENT REMAINS NPO. DESIGN LEAD AWARE
[2021-05-04] VITALS (48 sets, daily range): BP systolic 102–152; BP diastolic 67–92
[2021-05-04 03:16] LABS: BASOPHILS % (AUTO) 1.1 % (0.0-2.0); EOSINOPHILS % (AUTO) 0.8 % (0.0-6.0); HEMATOCRIT 27 % (33-45); HEMOGLOBIN 8.7 g/dL (11.5-14.8); LYMPHOCYTES # (AUTO) 0.7 K/uL (0.8-4.8); LYMPHOCYTES % (AUTO) 21.7 % (20.0-44.0); MEAN CORPUSCULAR HGB CONC 32 g/dl (31.0-36.0); MEAN CORPUSCULAR VOLUME 91 fL (82-100); MONOCYTES # (AUTO) 0.4 K/uL (0.1-1.30); MONOCYTES % (AUTO) 11.8 % (2.0-12.0); NEUTROPHILS # (AUTO) 2.2 K/uL (1.8-8.9); NEUTROPHILS % (AUTO) 64.6 % (43.0-81.0); PLATELET COUNT (AUTO) 99 K/uL (150-450); RED BLOOD CELL COUNT(AUTO) 2.95 MIL/uL (4.0-5.2); WHITE BLOOD COUNT (AUTO) 3.4 K/uL (4.3-11.0)
[2021-05-04 03:28] LABS: CALCIUM, SERUM 8.1 mg/dL (8.5-10.1); CARBON DIOXIDE 30 mmol/L (21-32); CHLORIDE 99 mmol/L (98-107); CREATININE 2.3 mg/dL (0.6-1.3); GLUCOSE 110 mg/dL (74-106); MAGNESIUM 1.8 mg/dL (1.8-2.4); PHOSPHORUS 2.6 mg/dL (2.5-4.9); POTASSIUM 3.9 mmol/L (3.5-5.1); SODIUM SERUM 135 mmol/L (136-145); UREA NITROGEN, BLOOD 12 mg/dL (7-18)
--- NOTE | 2021-05-04 04:00 | NUR ---
RN NOTE TELEPHONE CALL FROM AKIKO OF LAB, RELAYED CRITICAL LAB: RAN=[phone]. DR RIVERS WAS NOTIFIED, ORDER RECEIVED TO HOLD HEPARIN INFUSION FOR 3 HOURS THEN RE-CHECK PTT. DEAN OF GIRLSMISBAH RUELAS
--- NOTE | 2021-05-04 05:50 | NUR ---
PT TAKEN OFF BIPAP AND PLACED ON 2L NC, RN NOTIFIED.
--- NOTE | 2021-05-04 08:00 | NUR ---
RN NOTES RECEIVED PATIENT A/O/OX2/3, O2-98 NC-2L, NO ACUTE RESPIRATORY DISTRESS, PENDING PTT RESULT, BEDSIDE MONITOR SHOWS PATIENT A-FIB HR 134 PATIENT ON AMIODARONE DRIP 0.5, ASSIST EATING TOLERATED BREAKFAST 75% WITH TOTAL ASSIST, KEEP HOB ELEVATED FOR ASPIRATION PRECAUTION. DUE MEDICATION ADMINISTERED. ASSIST TURN AND REPOSTION Q 2 HR, PATIENT ANURIC, WILL FOLLOW UP.
[2021-05-04] MEDS: PANTOPRAZOLE 40 MG/PACK PACK NG SCH (08:07)
[2021-05-04] MEDS: DOCUSATE SODIUM 100 MG CAPSULE PO PRN (08:07)
[2021-05-04] MEDS: CALCIUM ACETATE 667 MG CAP/TAB PO SCH ×3 (08:07→18:14)
[2021-05-04] MEDS: CITRIC ACID/SODIUM CITRATE (BICITRA)15 ML UDC PO SCH ×4 (08:07→21:02)
[2021-05-04] MEDS: GABAPENTIN 100 MG CAPSULE PO SCH (08:07)
[2021-05-04] MEDS: ENSURE ENLIVE 237 ML LIQUID (VANILLA) PO SCH ×2 (08:08→18:15)
[2021-05-04] MEDS: LEVETIRACETAM SOL (5 ML) 100 MG/ML UDC PO SCH ×2 (08:15→21:02)
--- NOTE | 2021-05-04 09:58 | NUR ---
RN NOTES PTT -32.1 SEC RESULT, NOTIFIED PHARMACY DR COLIN, AND PER PROTOCOL STARTED 800 U AT THIS TIME.
--- NOTE | 2021-05-04 10:00 | NUR ---
RN NOTES PATIENT SCHEDULED CARDIOVERSION TOMORROW PER Dr HERRERA'S ORDER.
[2021-05-04] MEDS: AMIODARONE 450 MG in IV D5W 241 ML IV PRN (13:00)
--- NOTE | 2021-05-04 17:05 | NUR ---
RN NOTES PTT-76.8 SEC , FOLLOWED PER PROTOCOL, AND DECREASED 2 UNITS/KG/HR =100 UNITS., NEXT PTT ORDERED WITHIN 6HR.
--- NOTE | 2021-05-04 19:15 | NUR ---
RN NOTE RECEIVED PATIENT IN BED, AO X 2, IN NO ACUTE DISTRESS AT THIS TIME. SATURATION AT 99% ON 3L VIA NC, ST ON THE MONITOR, HR IS 129. NOTED OLIVIER PICC LINE, ALL HUBS PATENT AND FLUSHING WELL WITH AMIODARONE DRIP INFUSING AT 0.5 MG/MIN, PERMA CATH AT R CHEST WALL IN PLACE, NO S/S OF INFECTION. SOFT WRIST RESTRAINTS NOTED ON B WRISTS, SKIN AND CIRCULATION WAS CHECKED AND ARE WNL. SAFETY MEASURES IMPLEMENTED. PATIENT BED ALARM IS ON. HEAD OF BED ELEVATED. BED IS LOCKED, IN LOWEST POSITION AND SIDE RAILS UP. CALL LIGHT WITHIN REACH OF THE PATIENT. WILL CONTINUE TO MONITOR AND REASSESS FOR ANY CHANGES.
[2021-05-04] MEDS: FAMOTIDINE (20 MG) 20 MG TABLET PO SCH (21:02)
[2021-05-04] MEDS: HEPARIN INFUSION/D5W 500 ML IV PRN (22:58)
[2021-05-05] VITALS (33 sets, daily range): BP systolic 78–127; BP diastolic 49–103
[2021-05-05] MEDS: AMIODARONE 450 MG in IV D5W 241 ML IV PRN (04:12)
[2021-05-05 05:24] LABS: CALCIUM, SERUM 8.9 mg/dL (8.5-10.1); CARBON DIOXIDE 28 mmol/L (21-32); CHLORIDE 94 mmol/L (98-107); CREATININE 3.1 mg/dL (0.6-1.3); GLUCOSE 110 mg/dL (74-106); PHOSPHORUS 3.1 mg/dL (2.5-4.9); POTASSIUM 3.7 mmol/L (3.5-5.1); SODIUM SERUM 131 mmol/L (136-145); UREA NITROGEN, BLOOD 21 mg/dL (7-18)
[2021-05-05 05:25] LABS: BASOPHILS % (AUTO) 0.8 % (0.0-2.0); EOSINOPHILS % (AUTO) 1.2 % (0.0-6.0); HEMATOCRIT 26 % (33-45); HEMOGLOBIN 8.4 g/dL (11.5-14.8); LYMPHOCYTES # (AUTO) 1.1 K/uL (0.8-4.8); LYMPHOCYTES % (AUTO) 24.3 % (20.0-44.0); MEAN CORPUSCULAR HGB CONC 33 g/dl (31.0-36.0); MEAN CORPUSCULAR VOLUME 91 fL (82-100); MONOCYTES # (AUTO) 0.5 K/uL (0.1-1.30); MONOCYTES % (AUTO) 11.5 % (2.0-12.0); NEUTROPHILS # (AUTO) 2.7 K/uL (1.8-8.9); NEUTROPHILS % (AUTO) 62.2 % (43.0-81.0); PLATELET COUNT (AUTO) 87 K/uL (150-450); RED BLOOD CELL COUNT(AUTO) 2.86 MIL/uL (4.0-5.2); WHITE BLOOD COUNT (AUTO) 4.4 K/uL (4.3-11.0)
[2021-05-05 07:02] LABS: LYMPHOCYTES % (MANUAL) 16 % (16-48); MONOCYTES % (MANUAL) 7 % (0-11.0); NEUTROPHILS % (MANUAL) 77 (42-76)
--- NOTE | 2021-05-05 07:21 | NUR ---
RN OPENING NOTE RECEIVE REPORT FROM A P SUPERVISOR NURSE. PATIENT IN STABLE CONDITION WITH NO SIGN OF DISTRESS. CURRENTLY ON SIMPLE MASK AT 6L/MIN. PATIENT OXYGEN SAT WENT DOWN DURING BED BATH. WILL REPLACE SIMPLE MASK WITH NC. A/O X1-2. CUSTOMER MARKETING ASSISTANT SHOWS SINUS TACHY. EXPECTING TO RECEIVE DIALYSIS TODAY. EXPECT TO HAVE CARDIOVERSION TODAY. CONSENT IS SIGNED. PATIENT IS ON HEPARIN DRIP AND AMIODARONE DRIP. PROPER ISOLATION PRECAUTION IN PLACE. ALL SAFETY MEASURE IN PLACE. BED ON LOWEST POSITION WITH HOB ELEVATED AND 3 SIDE RAIL UP. CALL LIGHT WITHIN REACH. WILL CONTINUE TO MONITOR.
[2021-05-05] MEDS: LEVETIRACETAM SOL (5 ML) 100 MG/ML UDC PO SCH ×2 (09:06→21:12)
[2021-05-05] MEDS: CITRIC ACID/SODIUM CITRATE (BICITRA)15 ML UDC PO SCH ×4 (09:06→21:12)
[2021-05-05] MEDS: PANTOPRAZOLE 40 MG/PACK PACK NG SCH (09:06)
[2021-05-05] MEDS: GABAPENTIN 100 MG CAPSULE PO SCH (09:06)
[2021-05-05] MEDS: CALCIUM ACETATE 667 MG CAP/TAB PO SCH ×3 (09:07→17:15)
[2021-05-05] MEDS: ENSURE ENLIVE 237 ML LIQUID (VANILLA) PO SCH ×2 (09:08→17:17)
[2021-05-05] MEDS: AMIODARONE HCL 200 MG TABLET PO SCH ×3 (11:16→17:16)
--- NOTE | 2021-05-05 13:19 | NUR ---
RN NOTE PATIENT REFUSED FOOD. MULTIPLE ATTEMPTS WAS MADE. ENCOURAGEMENT WAS PROVIDED. Addendum: 05/05/21 at 1323 by LIBRADO HUNG RN THIS NOTE IS FOR DIFFERENT PATIENT.
[2021-05-05] MEDS: ALBUMIN 25% 25 GM in PREMIX 1 EA IV PRN (17:15)
[2021-05-05] MEDS: EPOETIN ALFA (10,000 UNIT) 10,000 UNIT/ML VIAL IV PRN (17:37)
--- NOTE | 2021-05-05 19:00 | NUR ---
RN NOTE RECEIVED PATIENT IN BED, AO X 2, IN NO ACUTE DISTRESS AT THIS TIME. SATURATION AT 100% ON 4L VIA NC, PATIENT S/P CARDIOVERSION TODAY, CURRENTLY SR ON THE MONITOR, HR IS 80. NOTED OLIVIER PICC LINE, ALL HUBS PATENT AND FLUSHING WELL WITH HEPARIN DRIP INFUSING AT 700 UNITS/HR, PERMA CATH AT R CHEST WALL IN PLACE, NO S/S OF INFECTION. SOFT WRIST RESTRAINTS NOTED ON B WRISTS, SKIN AND CIRCULATION WAS CHECKED AND ARE WNL. SAFETY MEASURES IMPLEMENTED. PATIENT BED ALARM IS ON. HEAD OF BED ELEVATED. BED IS LOCKED, IN LOWEST POSITION AND SIDE RAILS UP. CALL LIGHT WITHIN REACH OF THE PATIENT. WILL CONTINUE TO MONITOR AND REASSESS FOR ANY CHANGES.
--- NOTE | 2021-05-05 19:23 | NUR ---
RN CLOSING NOTE PATIENT REMAIN IN STABLE CONDITION THROUGH OUT SHIFT. CARDIOVERT WAS DONE. PATIENT HR RATE REMAIN AT 80'S AND 90'S. AMIODARONE DRIP WAS D/C. CONTINUE ON HEPARIN DRIP. ALBUMIN AND EPOGEN WAS GIVEN DURING DIALYSIS. PATIENT WAS TURN AND REPOSITION PER PROTOCOL. PROPER ISOLATION PRECAUTION IN PLACE. ALL SAFETY MEASURE IN PLACE. BED ON LOWEST POSITION WITH HOB ELEVATED AND 3 SIDE RAIL UP. CALL LIGHT WITHIN REACH. REPORT GIVING TO NANNY CAREGIVER NURSE
--- NOTE | 2021-05-05 21:00 | NUR ---
RN NOTE NOTED PATIENT SATURATION AT 70'S ON 4L VIA NC, PATIENT DOES NOT APPEAR IN DISTRESS, RESPONSIVE AND COOPERATIVE. SUCTIONED MOUTH, NO SECRETIONS NOTED, SWITCHED PATIENT TO 15L VIA NRB, STILL NO IMPROVEMENT WITH SATURATION. RT WAS NOTIFIED, PT WAS PLACED ON BIPAP WITH SETTINGS FOLLOWS: 15/5, RATE 16, FIO2 100%, NOTED PATIENT SATURATION INCREASED TO >95. WILL CONTINUE TO MONITOR. TEST EVALUATOR ED WAS MADE AWARE
[2021-05-05] MEDS: FAMOTIDINE (20 MG) 20 MG TABLET PO SCH (21:12)
[2021-05-06] VITALS (35 sets, daily range): BP systolic 108–163; BP diastolic 39–94
[2021-05-06 06:47] LABS: BASOPHILS % (AUTO) 0.3 % (0.0-2.0); EOSINOPHILS % (AUTO) 0.1 % (0.0-6.0); HEMATOCRIT 24 % (33-45); HEMOGLOBIN 7.7 g/dL (11.5-14.8); LYMPHOCYTES # (AUTO) 0.6 K/uL (0.8-4.8); LYMPHOCYTES % (AUTO) 15.1 % (20.0-44.0); MEAN CORPUSCULAR HGB CONC 32 g/dl (31.0-36.0); MEAN CORPUSCULAR VOLUME 91 fL (82-100); MONOCYTES # (AUTO) 0.4 K/uL (0.1-1.30); MONOCYTES % (AUTO) 9.6 % (2.0-12.0); NEUTROPHILS # (AUTO) 3.2 K/uL (1.8-8.9); NEUTROPHILS % (AUTO) 74.9 % (43.0-81.0); PLATELET COUNT (AUTO) 87 K/uL (150-450); RED BLOOD CELL COUNT(AUTO) 2.64 MIL/uL (4.0-5.2); WHITE BLOOD COUNT (AUTO) 4.3 K/uL (4.3-11.0)
--- NOTE | 2021-05-06 07:23 | NUR ---
RN NOTE PT REMAINS ON BIPAP AT 50% FIO2. ENDORSED TO JAELYN FOR SARA
[2021-05-06 07:59] LABS: CALCIUM, SERUM 8.5 mg/dL (8.5-10.1); CARBON DIOXIDE 27 mmol/L (21-32); CHLORIDE 99 mmol/L (98-107); CREATININE 2.7 mg/dL (0.6-1.3); GLUCOSE 101 mg/dL (74-106); MAGNESIUM 1.8 mg/dL (1.8-2.4); PHOSPHORUS 3.4 mg/dL (2.5-4.9); POTASSIUM 3.7 mmol/L (3.5-5.1); SODIUM SERUM 138 mmol/L (136-145); UREA NITROGEN, BLOOD 16 mg/dL (7-18)
[2021-05-06] MEDS: CALCIUM ACETATE 667 MG CAP/TAB PO SCH ×3 (08:00→16:13)
--- NOTE | 2021-05-06 08:00 | NUR ---
RT PATIENT REMOVED FROM BIPAP AND WAS PLACED ON SUPPLEMENTAL O2. WITHIN MINUTES PATIENT DESATURATED AND BECAME SOB. PATIENT PLACED BACK ON BIPAP AND DR BARNARD NOTIFIED.
[2021-05-06] MEDS: ENSURE ENLIVE 237 ML LIQUID (VANILLA) PO SCH ×2 (09:00→16:13)
[2021-05-06] MEDS: PANTOPRAZOLE 40 MG/PACK PACK NG SCH (09:00)
[2021-05-06] MEDS ORDERED: IV D5/ 0.9% NACL 1,000 ML IV ONE (09:30)
--- NOTE | 2021-05-06 10:00 | NUR ---
RN NOTE PATIENT 02 DECREASES OFF BIPAP. GAVE MUCH MEDICATION AND FOOD PATIENT COULD TOLERATE.
[2021-05-06] MEDS: CITRIC ACID/SODIUM CITRATE (BICITRA)15 ML UDC PO SCH ×4 (10:42→22:40)
[2021-05-06] MEDS: AMIODARONE HCL 200 MG TABLET PO SCH ×3 (10:42→16:13)
[2021-05-06] MEDS: LEVETIRACETAM SOL (5 ML) 100 MG/ML UDC PO SCH ×2 (10:42→22:40)
[2021-05-06] MEDS: GABAPENTIN 100 MG CAPSULE PO SCH (10:42)
[2021-05-06] MEDS: HEPARIN INFUSION/D5W 500 ML IV PRN (10:57)
--- NOTE | 2021-05-06 11:00 | NUR ---
RN NOTE POOR PO INTAKE PER MD ORDER D5NS @40. HD ORDERED. PATIENT DESATURATES WITH BI PAP OFF.; WILL CONTINUE TO MONITOR CLOSELY
[2021-05-06] MEDS: FAMOTIDINE (20 MG) 20 MG TABLET PO SCH (22:40)
[2021-05-07] VITALS (32 sets, daily range): BP systolic 101–124; BP diastolic 54–77
[2021-05-07 04:42] LABS: BASOPHILS % (AUTO) 1.3 % (0.0-2.0); EOSINOPHILS % (AUTO) 0.2 % (0.0-6.0); HEMATOCRIT 26 % (33-45); HEMOGLOBIN 8.2 g/dL (11.5-14.8); LYMPHOCYTES # (AUTO) 0.7 K/uL (0.8-4.8); MEAN CORPUSCULAR HGB CONC 32 g/dl (31.0-36.0); MEAN CORPUSCULAR VOLUME 92 fL (82-100); MONOCYTES # (AUTO) 0.4 K/uL (0.1-1.30); MONOCYTES % (AUTO) 11.8 % (2.0-12.0); NEUTROPHILS # (AUTO) 2.5 K/uL (1.8-8.9); NEUTROPHILS % (AUTO) 68.7 % (43.0-81.0); PLATELET COUNT (AUTO) 82 K/uL (150-450); RED BLOOD CELL COUNT(AUTO) 2.78 MIL/uL (4.0-5.2); WHITE BLOOD COUNT (AUTO) 3.7 K/uL (4.3-11.0)
[2021-05-07 06:19] LABS: CALCIUM, SERUM 8.9 mg/dL (8.5-10.1); CARBON DIOXIDE 29 mmol/L (21-32); CHLORIDE 101 mmol/L (98-107); CREATININE 3.6 mg/dL (0.6-1.3); GLUCOSE 110 mg/dL (74-106); POTASSIUM 3.8 mmol/L (3.5-5.1); SODIUM SERUM 138 mmol/L (136-145); UREA NITROGEN, BLOOD 23 mg/dL (7-18)
--- NOTE | 2021-05-07 07:26 | NUR ---
placed into 1 lpm o2 flow via nasal cannula. bipap on standby @ bedside. Addendum: 05/07/21 at 0727 by KEEGAN RUDOLPH RT Amended: Links added.
--- NOTE | 2021-05-07 07:38 | NUR ---
RN OPENING NOTES; RECEIVED PT IN BED IN SUPINE POS. PT A/OX1, ON ON 02 VIA NC AT 1LPM TOLERATING WELL. NO SOB NOTED, NO C/O PAIN AT THIS TIME. NO DISTRESS NOTED. OLIVIER PICC NOTED, FLUSHED, PATENT AND RUNNING WELL. PT ON HPARIN DRIP AT 700U/HR, D5NS @40ML/HR. ALL SAFETY MEASURES RENDERED, BED IN LOWEST POS. LOCKED WITH CALL LIGHT WITHIN REACH. WILL CONTINUE TO MONITOR.
[2021-05-07] MEDS: CALCIUM ACETATE 667 MG CAP/TAB PO SCH ×3 (08:02→17:01)
[2021-05-07] MEDS: CITRIC ACID/SODIUM CITRATE (BICITRA)15 ML UDC PO SCH ×4 (08:03→21:53)
[2021-05-07] MEDS: AMIODARONE HCL 200 MG TABLET PO SCH ×3 (08:03→16:12)
[2021-05-07] MEDS: LEVETIRACETAM SOL (5 ML) 100 MG/ML UDC PO SCH ×2 (08:03→21:53)
[2021-05-07] MEDS: ENSURE ENLIVE 237 ML LIQUID (VANILLA) PO SCH ×2 (08:03→16:12)
[2021-05-07] MEDS: GABAPENTIN 100 MG CAPSULE PO SCH (08:04)
[2021-05-07] MEDS: PANTOPRAZOLE 40 MG/PACK PACK NG SCH (08:22)
--- NOTE | 2021-05-07 08:58 | NUR ---
OXYGEN FLOW DECREASED FROM 1 LPM TO 1.5 LPM O2 FLOW PER DR. BARNARD. Addendum: 05/07/21 at 0859 by KEEGAN RUDOLPH RT Amended: Links added.
[2021-05-07 15:13] LABS: ABG BASE EXCESS -2.9 mmol/L; ABG OXYGEN SATURATION 82.2 % (92.0-98.5); ABG PCO2 44.5 mmHg (35.0-45.0); AaDO2 67.2 mmHg; COHb 0.5 % (0.5-1.5); O2Hb 81.8 % (94.0-97.0); SITE, ABG Right Radial; VENT MODE, BG nasal cannula
[2021-05-07] MEDS: HEPARIN INFUSION/D5W 500 ML IV PRN (18:45)
--- NOTE | 2021-05-07 19:08 | NUR ---
RN CLOSING NOTES; PT IN BED RESTING. PT A/OX2, PT ON O2 VIA NC AT 1.5LPM TOLERATING WELL SATING BETWEEN 88-90%. ALL MEDICATIONS GIVEN AND TOLERATED WELL. PT HAD DIALYSIS TODAY, AND WAS ABLE TO REMOVE 1.7L. PT KEPT CLEAN, DRY AND COMFORTABLE. PT ON HEP DRIP AT 700U. ALL SAFETY MEASURES RENDERED, BED IN LOWEST POS. LOCKED, SIDERAILS X3 WITH CALL LIGHT WITHIN REACH. ENDORSED TO LIFE SKILLS INSTRUCTOR RN IN STABLE CONDITION.
[2021-05-07] MEDS: FAMOTIDINE (20 MG) 20 MG TABLET PO SCH (21:53)
--- NOTE | 2021-05-07 23:51 | NUR ---
RT NOTE PT PLACED ON BIPAP WITH CURRENT SETTINGS OF 15/5, 16, 30%. MASK SECURED. PT TOLERATING WELL. ALARMS ON AND AUDIBLE. NO RESPIRATORY DISTRESS NOTED AT THIS TIME. WILL CONTINUE TO MONITOR CLOSELY. MISBAH [place]IN[place]NA NOTIFIED.
[2021-05-08] VITALS (30 sets, daily range): BP systolic 101–132; BP diastolic 54–78
[2021-05-08 04:46] LABS: BASOPHILS % (AUTO) 0.9 % (0.0-2.0); EOSINOPHILS % (AUTO) 0.5 % (0.0-6.0); HEMATOCRIT 22 % (33-45); HEMOGLOBIN 7.1 g/dL (11.5-14.8); LYMPHOCYTES # (AUTO) 0.8 K/uL (0.8-4.8); LYMPHOCYTES % (AUTO) 23.2 % (20.0-44.0); MEAN CORPUSCULAR HGB CONC 32 g/dl (31.0-36.0); MEAN CORPUSCULAR VOLUME 91 fL (82-100); MONOCYTES # (AUTO) 0.4 K/uL (0.1-1.30); MONOCYTES % (AUTO) 11.1 % (2.0-12.0); NEUTROPHILS # (AUTO) 2.2 K/uL (1.8-8.9); NEUTROPHILS % (AUTO) 64.3 % (43.0-81.0); PLATELET COUNT (AUTO) 107 K/uL (150-450); RED BLOOD CELL COUNT(AUTO) 2.43 MIL/uL (4.0-5.2); WHITE BLOOD COUNT (AUTO) 3.4 K/uL (4.3-11.0)
[2021-05-08 05:06] LABS: CALCIUM, SERUM 8.3 mg/dL (8.5-10.1); CARBON DIOXIDE 30 mmol/L (21-32); CHLORIDE 101 mmol/L (98-107); CREATININE 2.9 mg/dL (0.6-1.3); GLUCOSE 89 mg/dL (74-106); MAGNESIUM 1.9 mg/dL (1.8-2.4); PHOSPHORUS 3.3 mg/dL (2.5-4.9); POTASSIUM 3.5 mmol/L (3.5-5.1); SODIUM SERUM 138 mmol/L (136-145); UREA NITROGEN, BLOOD 18 mg/dL (7-18)
--- NOTE | 2021-05-08 06:50 | NUR ---
RN NOTE CLOSING PT REMAINS WITH BIPAP, RESTING COMFORTABLY. TOLERATING WELL. NO CHANGE IN PTT HEPARIN DRIP REMAINS SAME. NO DISTRESS NOTED, ALL NEEDS ATTENDED. WILL ENDORSE TO DAY SHIFT RN FOR CONT OF CARE
--- NOTE | 2021-05-08 07:12 | NUR ---
RN OPENING NOTES RECEIVED PT IN BED, A/OX2, CAN MAKE NEEDS KNOWN. NO SOB OR DISTRESS NOTED. PT CURRENTLY ON BIPAP. PT HAS NO C/O PAIN. OLIVIER PICC NOTED, RUNNING HEP AT 700U, PTT 66.6 NO CHANGE. ALL SAFETY MEASURES RENDERED. BED IN LOWEST POS. LOCKED, SIDE RAILS X3, WITH CALL LIGHT WITHIN REACH. WILL CONTINUE TO MONITOR.
[2021-05-08] MEDS: LEVETIRACETAM SOL (5 ML) 100 MG/ML UDC PO SCH ×2 (08:02→21:30)
[2021-05-08] MEDS: CITRIC ACID/SODIUM CITRATE (BICITRA)15 ML UDC PO SCH ×4 (08:02→21:30)
[2021-05-08] MEDS: GABAPENTIN 100 MG CAPSULE PO SCH (08:02)
[2021-05-08] MEDS: PANTOPRAZOLE 40 MG/PACK PACK NG SCH (08:02)
[2021-05-08] MEDS: CALCIUM ACETATE 667 MG CAP/TAB PO SCH ×3 (08:03→17:05)
[2021-05-08] MEDS: AMIODARONE HCL 200 MG TABLET PO SCH ×3 (08:03→16:11)
[2021-05-08] MEDS: ENSURE ENLIVE 237 ML LIQUID (VANILLA) PO SCH ×2 (08:04→16:12)
[2021-05-08 10:52] LABS: LYMPHOCYTES % (MANUAL) 27 % (16-48); MONOCYTES % (MANUAL) 11 % (0-11.0); NEUTROPHILS % (MANUAL) 62 (42-76)
[2021-05-08] MEDS: THERAHONEY GEL 1.5 OZ TUBE TP SCH (13:14)
--- NOTE | 2021-05-08 18:33 | NUR ---
RN CLOSING NOTES; PT IN BED IN HIGH FOWLERS POS. PT ON ASPIRATION PRECAUTION. PT ATE 100% OF ALL MEALS. NO SOB NOTED, PT ON 02 @ 1LPM SATING AT 92%. PT STILL ON HEPARIN DRIP AT 700U/HR, PTT WAS 66.6. ALL MEDICATION TAKEN AND TOLERATED WELL. PT KEPT CLEAN, DRY AND COMFORTABLE. PT HAD L BM THIS EVENING. ALL SAFETY MEASURES RENDERED, BED IN LOWEST POS. LOCKED WITH CALL LIGHT WITHIN REACH. NO SIGNIFICANT CHANGES IN PT HEALTH STATUS DURING SHIFT. WILL ENDORSE TO SCRAP BUNCH MAKER RN. PT IN STABLE CONDITION.
--- NOTE | 2021-05-08 20:02 | NUR ---
RN NOTE PATIENT IN BED. AWAKE, ORIENTED X1-2. NO SOB NOTED, PT ON 02 @ 1LPM O2 SAT 94%. IV ACCESS ON OLIVIER PICC INFUSING HEPARIN DRIP AT 700U/HR, PTT WAS 66.6. DENIES ANY PAIN AT THIS TIME. KEPT COMFORTABLE. BED LOCKED AND IN LOWEST POSITION. CALL LIGHT WITHIN REACH. ALL NEEDS ANTICIPATED.
--- NOTE | 2021-05-08 21:05 | NUR ---
RT NOTE PATIENT IS AWAKE AND ALERT AT THIS TIME. NO SOB NOTED ON 1LPM N/C. WILL CONTINUE TO MONITOR PATIENT.
[2021-05-08] MEDS: FAMOTIDINE (20 MG) 20 MG TABLET PO SCH (21:30)
[2021-05-09] VITALS (26 sets, daily range): BP systolic 99–128; BP diastolic 39–70
[2021-05-09 04:51] LABS: BASOPHILS % (AUTO) 0.5 % (0.0-2.0); EOSINOPHILS % (AUTO) 0.3 % (0.0-6.0); HEMATOCRIT 23 % (33-45); HEMOGLOBIN 7.3 g/dL (11.5-14.8); LYMPHOCYTES # (AUTO) 0.6 K/uL (0.8-4.8); LYMPHOCYTES % (AUTO) 17.9 % (20.0-44.0); MEAN CORPUSCULAR HGB CONC 32 g/dl (31.0-36.0); MEAN CORPUSCULAR VOLUME 91 fL (82-100); MONOCYTES # (AUTO) 0.3 K/uL (0.1-1.30); MONOCYTES % (AUTO) 9.6 % (2.0-12.0); NEUTROPHILS # (AUTO) 2.4 K/uL (1.8-8.9); NEUTROPHILS % (AUTO) 71.7 % (43.0-81.0); PLATELET COUNT (AUTO) 114 K/uL (150-450); RED BLOOD CELL COUNT(AUTO) 2.52 MIL/uL (4.0-5.2); WHITE BLOOD COUNT (AUTO) 3.3 K/uL (4.3-11.0)
[2021-05-09 05:24] LABS: CALCIUM, SERUM 8.4 mg/dL (8.5-10.1); CARBON DIOXIDE 28 mmol/L (21-32); CHLORIDE 99 mmol/L (98-107); CREATININE 3.6 mg/dL (0.6-1.3); GLUCOSE 97 mg/dL (74-106); MAGNESIUM 1.8 mg/dL (1.8-2.4); PHOSPHORUS 3.9 mg/dL (2.5-4.9); POTASSIUM 3.6 mmol/L (3.5-5.1); SODIUM SERUM 136 mmol/L (136-145); UREA NITROGEN, BLOOD 26 mg/dL (7-18)
[2021-05-09] MEDS: HEPARIN INFUSION/D5W 500 ML IV PRN (07:06)
--- NOTE | 2021-05-09 07:42 | NUR ---
RN NOTE PATIENT IN BED RESTING. PT ON O2 @ 1LPM, NO RESPIRATORY DISTRESS. IV ACCESS ON OLIVIER PICC INFUSING HEPARIN DRIP AT 700U/HR, PTT WAS 68.1, NO CHANGES MADE. TURNED AND REPOSITIONED. NO SIGNIFICANT CHANGES DURING THIS SHIFT. BED LOCKED AND IN LOWEST POSITION. CALL LIGHT WITHIN REACH. ENDORSED TO AM SHIFT.
[2021-05-09] MEDS: CITRIC ACID/SODIUM CITRATE (BICITRA)15 ML UDC PO SCH ×4 (08:07→21:55)
[2021-05-09] MEDS: GABAPENTIN 100 MG CAPSULE PO SCH (08:07)
[2021-05-09] MEDS: LEVETIRACETAM SOL (5 ML) 100 MG/ML UDC PO SCH ×2 (08:07→21:55)
[2021-05-09] MEDS: CALCIUM ACETATE 667 MG CAP/TAB PO SCH ×3 (08:07→16:36)
[2021-05-09] MEDS: AMIODARONE HCL 200 MG TABLET PO SCH ×3 (08:08→16:36)
[2021-05-09] MEDS: PANTOPRAZOLE 40 MG/PACK PACK NG SCH (08:08)
[2021-05-09] MEDS: ENSURE ENLIVE 237 ML LIQUID (VANILLA) PO SCH ×2 (08:24→16:42)
[2021-05-09] MEDS: THERAHONEY GEL 1.5 OZ TUBE TP SCH (08:25)
--- NOTE | 2021-05-09 12:00 | NUR ---
RN NOTE PER DIALYSIS NURSE ROMERO, PT IS UNABLE TO COMPLETE HD AND WILL REATTEMPT TOMORROW. PER DR. CARLITA ABREU TO GIVE 4ML ALTEPLASE ON PERM CATH SITE.
[2021-05-09] MEDS ORDERED: ALTEPLASE CATHFLO 2 MG/VIAL XX ONE (14:30)
--- NOTE | 2021-05-09 18:33 | NUR ---
RN CLOSING NOTE PT A/OX2 AND NEEDS ASSIST EATING AND WITH FLUIDS. LAST HD ON 05/07 WITH 1.7L OUTPUT. UNABLE TO COMPLETE HD TODAY. WILL ATTEMPT 05/10. PT ON HEPARIN DRIP 700 UNITS. PTT @0600 05/09 WAS 68.1. NO CHANGES. PTT ORDERED FOR 05/10 @0600. [facility] CALLED AND GAVE OKAY FOR AORTIC VALVE REPLACEMENT SURGERY WITHIN THE NEXT COUPLE DAYS. PT ON NOCTURNAL BIPAP 15/5, RATE 16, DIO2 30%.
--- NOTE | 2021-05-09 19:30 | NUR ---
RN OPENING NOTES RECEIVED PT IN BED, A/O X 2, RESPIRATORY EVEN AND UNLABORED, NO SOB NOTED, NO S/S OF DISTRESS NOTED . PATIENT ON NASAL CANULA @ 2 LPM. PATIENT NOTED WITH OLIVIER PICC LINE, PATENT, INTACT AND FLUSHED WITH NS, RUNNING HEP AT 700U, LATEST PTT 68.1 NO CHANGE. ALL SAFETY MEASURES PROVIDED. BED IN LOWEST POSITION, LOCKED, BED ALARM ARMED. CALL LIGHT WITHIN REACH. WILL CONTINUE TO MONITOR.
[2021-05-09] MEDS: FAMOTIDINE (20 MG) 20 MG TABLET PO SCH (21:56)
[2021-05-09 22:57] LABS: ABG BASE EXCESS -0.1 mmol/L; ABG OXYGEN SATURATION 93.1 % (92.0-98.5); ABG PH 7.327 (7.350-7.450); ABG PO2 73.4 mmHg (75.0-100.0); COHb 0.7 % (0.5-1.5); MetHb 0.1 % (0.0-1.5); O2Hb 92.4 % (94.0-97.0); SITE, ABG Right Radial
[2021-05-10] VITALS (58 sets, daily range): BP systolic 58–128; BP diastolic 29–73
[2021-05-10 04:54] LABS: BASOPHILS % (AUTO) 0.5 % (0.0-2.0); EOSINOPHILS % (AUTO) 1.1 % (0.0-6.0); HEMATOCRIT 23 % (33-45); HEMOGLOBIN 7.1 g/dL (11.5-14.8); LYMPHOCYTES # (AUTO) 0.5 K/uL (0.8-4.8); LYMPHOCYTES % (AUTO) 13.1 % (20.0-44.0); MEAN CORPUSCULAR HGB CONC 32 g/dl (31.0-36.0); MEAN CORPUSCULAR VOLUME 92 fL (82-100); MONOCYTES # (AUTO) 0.3 K/uL (0.1-1.30); MONOCYTES % (AUTO) 7.6 % (2.0-12.0); NEUTROPHILS # (AUTO) 2.8 K/uL (1.8-8.9); NEUTROPHILS % (AUTO) 77.7 % (43.0-81.0); PLATELET COUNT (AUTO) 106 K/uL (150-450); RED BLOOD CELL COUNT(AUTO) 2.46 MIL/uL (4.0-5.2); WHITE BLOOD COUNT (AUTO) 3.6 K/uL (4.3-11.0)
[2021-05-10] MEDS: MIDODRINE HCL (5MG) 5 MG TABLET PO PRN ×2 (05:02→09:09)
--- NOTE | 2021-05-10 05:02 | NUR ---
RN NOTES PATIENT NOTED WITH BP- 88/41, MIDODRINE 10MG GIVEN PER MD'S ORDER. CONTINUE TO MONITOR
--- NOTE | 2021-05-10 05:02 | NUR ---
MISBAH NOTES PATIENT NOTED WITH BP= 88 Addendum: 05/10/21 at 0507 by HERMELINDO ANDINO RN ERROR
[2021-05-10 05:09] LABS: ALANINE AMINOTRANSFERASE 13 U/L (12-78); ALBUMIN 2.9 g/dL (3.4-5.0); ALKALINE PHOSPHATASE 110 U/L (46-116); ASPARTATE AMINOTRANSFERASE 8 U/L (15-37); BILIRUBIN,TOTAL 0.5 mg/dL (0.2-1.0); CALCIUM, SERUM 8.3 mg/dL (8.5-10.1); CARBON DIOXIDE 30 mmol/L (21-32); CHLORIDE 97 mmol/L (98-107); CREATININE 3.8 mg/dL (0.6-1.3); GLUCOSE 89 mg/dL (74-106); MAGNESIUM 1.8 mg/dL (1.8-2.4); SODIUM SERUM 136 mmol/L (136-145); TOTAL PROTEIN, SERUM 5.5 g/dL (6.4-8.2); UREA NITROGEN, BLOOD 31 mg/dL (7-18)
--- NOTE | 2021-05-10 05:30 | NUR ---
RN NOTES BP RECHECKED OBTAINED
--- NOTE | 2021-05-10 07:12 | NUR ---
RN CLOSING NOTES NO SIGNIFICANT CHANGES THROUGH OUT THE SHIFT, RESPIRATORY EVEN AND UNLABORED, NO SOB NOTED, NO S/S OF DISTRESS NOTED . PATIENT ON NASAL CANULA @ 2 LPM. PATIENT NOTED WITH OLIVIER PICC LINE, PATENT, INTACT AND FLUSHED WITH NS, RUNNING HEP AT 700U, LATEST PTT 68.1 NO CHANGE. ALL DUE MEDS GIVEN ORDERED. ALL SAFETY MEASURES PROVIDED. BED IN LOWEST POSITION, LOCKED, BED ALARM ARMED. CALL LIGHT WITHIN REACH. WILL CONTINUE TO MONITOR.
--- NOTE | 2021-05-10 08:35 | NUR ---
RN NOTE PER HD NURSE CANDACE PT UNSTABLE WITH LOW BP. HD STOPPED. SBP <[address] ZAZUETA (SENIOR CORPORATE RECRUITER NOTIFIED). PT LETHARGIC WITH MINIMAL RESPONSE. PT HOB UP. WILL CONTINUE TO MONITOR.
[2021-05-10] MEDS: GABAPENTIN 100 MG CAPSULE PO SCH (08:41)
[2021-05-10] MEDS: CITRIC ACID/SODIUM CITRATE (BICITRA)15 ML UDC PO SCH ×4 (08:41→21:00)
[2021-05-10] MEDS: CALCIUM ACETATE 667 MG CAP/TAB PO SCH ×3 (08:41→17:06)
[2021-05-10] MEDS: PANTOPRAZOLE 40 MG/PACK PACK NG SCH (08:42)
[2021-05-10] MEDS: AMIODARONE HCL 200 MG TABLET PO SCH ×3 (08:42→17:00)
[2021-05-10] MEDS: LEVETIRACETAM SOL (5 ML) 100 MG/ML UDC PO SCH ×2 (09:00→21:00)
[2021-05-10] MEDS: ALBUMIN 25% 25 GM in PREMIX 1 EA IV PRN (09:09)
[2021-05-10] MEDS: THERAHONEY GEL 1.5 OZ TUBE TP SCH (09:15)
[2021-05-10] MEDS: ENSURE ENLIVE 237 ML LIQUID (VANILLA) PO SCH (09:15)
--- NOTE | 2021-05-10 10:17 | NUR ---
WOUND CARE FOLLOW UP: PT SEEN FOR RE-EVALUATION OF SACRAL DEEP TISSUE INJURY IN EVOLUTION WHICH HAS NOW FULLY EVOLVED TO STAGE 2 ULCER AND IS SMALLER IN SIZE. DISCUSSED WITH NURSING STAFF AND SURGICAL P.A. CURRENTLY ON CASE. CONCUR WITH CURRENT TREATMENT ORDERS. 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 DUE TO MULTIPLE CO-MORBIDITIES, FURTHER SKIN BREAKDOWN MAY BE UNAVOIDABLE. DISCUSSED SKIN PROTECTION WITH NURSING STAFF. MD IN AGREEMENT WITH PLAN OF CARE. Addendum: 05/10/21 at 1020 by JACK DURAN WNDNU Amended: Links added.
[2021-05-10] MEDS ORDERED: FAMO20TA80 PO (11:13)
[2021-05-10] MEDS ORDERED: CALC667C6 PO (11:13)
[2021-05-10] MEDS ORDERED: LACT-246 PO (11:13)
[2021-05-10] MEDS ORDERED: CITR15SO PO (11:13)
[2021-05-10] MEDS ORDERED: LEVE100S PO (11:13)
[2021-05-10] MEDS ORDERED: AMIO200T7 PO (11:13)
[2021-05-10] MEDS ORDERED: MIDO5TAB4 PO (11:13)
[2021-05-10] MEDS ORDERED: EPOE1VIA7 IV (11:13)
[2021-05-10] MEDS ORDERED: PANT40SU2 NG (11:13)
--- NOTE | 2021-05-10 12:30 | NUR ---
RN NOTE PT SBP <80 SINCE HD WAS STOPPED. DR. VALDEZ AWARE AND DECLINED ADMINISTRATION OF PRESSORS. WILL CONTINUE TO MONITOR BP. Addendum: 05/10/21 at 1539 by HERNANDEZ COSTA RN *ACCEPTED* PER JOSÉ MIGUEL OKAY TO START LEVOPHED. WILL START AT 0.1MCG/KG/MIN
[2021-05-10] MEDS ORDERED: NEPRO VAN 237 ML CAN PO PRN (13:30)
[2021-05-10] MEDS ORDERED: NOREPINEPHRINE 8 MG in IV NS 0.9% 242 ML IV PRN (16:00)
[2021-05-10] MEDS: HEPARIN INFUSION/D5W 500 ML IV PRN (17:03)
--- NOTE | 2021-05-10 18:29 | NUR ---
RN CLOSING NOTE PT LETHARGIC ON BIPAP 15/5, RATE OF 16, AND FIO2 40%. PT WAS NOT ABLE TO TOLERATE HD TODAY AND WAS STOPPED. PT HAD LOW BLOOD PRESSURE OF MAP <65 AND STARTED LEVOPHED 0.1. PT CURRENTLY ON 0.2 MCG/MIN/KG. CURRENT BP 97/[address] MING ABREU TO TRANSFER. MUST CALL [facility] ONCE PT IS TRANSFERRED TO [facility]. [phone]. PT ON HEPARIN DRIP 700 UNITS. PTT LAB PLACED FOR 05/11 0600. WILL CONTINUE TO MONITOR PT.
--- NOTE | 2021-05-10 19:44 | NUR ---
RCVD PT ON BIPAP 15/5 , FIO2 40%, RATE 16. PT IS LETHARGIC . BIPAP PLUGGED INTO RED OUTLET, ALARMS ON AND AUDIBLE. AMBU BAG AT BEDSIDE. WILL CONTINUE TO MONITOR PT T/O SHIFT.
--- NOTE | 2021-05-10 20:10 | NUR ---
ICU/DISABILITY COUNSELOR CALLED PHARMACY TO GET EPOGEN FOR THIS PT WHO HAD HD TODAY.
--- NOTE | 2021-05-10 20:42 | NUR ---
ICU/AFTERNOON BABYSITTER LEVO 32MG IN 250ML ORDERED, PT GETS HD. WRONG DOSE CONCENTRATION FOR SOMEONE GETTING DIALYSIS WAS ORDERED. THIS WAS CORRECTED AND WAITING FOR PHARMACY TO BRING UP.
[2021-05-10] MEDS: EPOETIN ALFA (10,000 UNIT) 10,000 UNIT/ML VIAL IV PRN (21:05)
--- NOTE | 2021-05-10 21:10 | NUR ---
ICU/PLACEMENT COORDINATOR UNABLE TO GIVE PO MEDICATION DUE TO THE FACT PT IS CURRENTLY ON BIPAP AND LETHARGIC. THERE IS A REAL POSSIBILITY OF ASPIRATION GIVEN THESE FACTORS.
[2021-05-10] MEDS: NOREPINEPHRINE 32 MG in IV NS 0.9% 218 ML IV PRN (21:34)
[2021-05-10] MEDS: FAMOTIDINE (20 MG) 20 MG TABLET PO SCH (22:00)
--- NOTE | 2021-05-10 22:57 | NUR ---
ICU/SUSTAINABLE COMMUNITIES DESIGNER 2129-EPOGEN GIVEN FOR THE LOW H/H OF 7.1 AND PT IS POST HD. 2199-LEVO 32MG/250ML WAS HUNG UP FOR LOW BP.
[2021-05-11] VITALS (88 sets, daily range): BP systolic 67–171; BP diastolic 29–134
--- NOTE | 2021-05-11 00:15 | NUR ---
ICU/POLICY WRITER SALES SANDRA FROM [facility] CALLED, GAVE UPDATES ON PTS CONDITION. PT IS CURRENTLY ON LEVO SINCE HD. AND PT IS LETHARGIC SINCE HD. MADE HER AWARE OF THIS. [facility] SAID THAT THEY WILL NOT BE ABLE TO TAKE THIS PT AT THIS TIME. SAID TO TAKE LEVO OFF AND DOWN GRADE THEN WILL TAKE THIS PT A TRANSFER.
[2021-05-11] MEDS: IV NS 0.9% 250 ML IV PRN (05:50)
--- NOTE | 2021-05-11 07:30 | NUR ---
WIND TURBINE DESIGN ENGINEER OPENING NOTES Patient received not responding to physical or verbal stimuli. On bipap with 02 of 98%. Left upper arm picc line running levo at 0.9 mcg/kg/min. HOB kept elevated. Patient doesn't follow commands. Will continue to monitor.
[2021-05-11] MEDS: CALCIUM ACETATE 667 MG CAP/TAB PO SCH ×3 (08:00→17:15)
--- NOTE | 2021-05-11 08:30 | NUR ---
Heparin held due to INR of >170 and PRODUCT DEVELOPMENT SCIENTIST Juan made aware.
[2021-05-11] MEDS: AMIODARONE HCL 200 MG TABLET PO SCH ×3 (09:00→17:00)
[2021-05-11] MEDS: GABAPENTIN 100 MG CAPSULE PO SCH (09:00)
[2021-05-11] MEDS: CITRIC ACID/SODIUM CITRATE (BICITRA)15 ML UDC PO SCH ×4 (09:00→21:00)
[2021-05-11 09:06] LABS: CALCIUM, SERUM 7.8 mg/dL (8.5-10.1); CARBON DIOXIDE 26 mmol/L (21-32); CHLORIDE 98 mmol/L (98-107); CREATININE 4.6 mg/dL (0.6-1.3); POTASSIUM 4.2 mmol/L (3.5-5.1); SODIUM SERUM 138 mmol/L (136-145); UREA NITROGEN, BLOOD 43 mg/dL (7-18)
[2021-05-11 09:11] LABS: GLUCOSE 46 mg/dL (74-106)
[2021-05-11 09:19] LABS: ALANINE AMINOTRANSFERASE 47 U/L (12-78); ALBUMIN 2.8 g/dL (3.4-5.0); ALKALINE PHOSPHATASE 215 U/L (46-116); ASPARTATE AMINOTRANSFERASE 102 U/L (15-37); BILIRUBIN,TOTAL 1.8 mg/dL (0.2-1.0); MAGNESIUM 1.6 mg/dL (1.8-2.4); PHOSPHORUS 3.7 mg/dL (2.5-4.9); TOTAL PROTEIN, SERUM 5.3 g/dL (6.4-8.2)
[2021-05-11] MEDS ORDERED: DEXTROSE 50%-WATER 50 ML DISP.SYRIN IVP ONE (09:20)
[2021-05-11] MEDS: NOREPINEPHRINE 32 MG in IV NS 0.9% 218 ML IV PRN ×2 (09:40→18:12)
--- NOTE | 2021-05-11 09:49 | NUR ---
PER RN DUSTIN NOT STABLE FOR EXAM AT PRESANT TIME, CT HEAD
[2021-05-11] MEDS: HYDROCORTISONE SOD SUCCINATE 100 MG/2 ML VIAL IV SCH ×3 (10:49→22:20)
[2021-05-11] MEDS: LEVETIRACETAM (500MG) 500 MG in IV NS 0.9% 100 ML IV SCH ×2 (10:49→22:20)
[2021-05-11] MEDS: PANTOPRAZOLE 40 MG VIAL IV SCH (10:49)
[2021-05-11] MEDS: THERAHONEY GEL 1.5 OZ TUBE TP SCH (10:50)
[2021-05-11 11:22] LABS: EOSINOPHILS % (AUTO) 0.3 % (0.0-6.0); HEMATOCRIT 23 % (33-45); HEMOGLOBIN 7.1 g/dL (11.5-14.8); LYMPHOCYTES # (AUTO) 0.7 K/uL (0.8-4.8); LYMPHOCYTES % (AUTO) 1.9 % (20.0-44.0); MEAN CORPUSCULAR HGB CONC 31 g/dl (31.0-36.0); MEAN CORPUSCULAR VOLUME 92 fL (82-100); MONOCYTES # (AUTO) 0.9 K/uL (0.1-1.30); MONOCYTES % (AUTO) 2.5 % (2.0-12.0); NEUTROPHILS # (AUTO) 35.9 K/uL (1.8-8.9); NEUTROPHILS % (AUTO) 95.3 % (43.0-81.0)
[2021-05-11 11:31] LABS: WHITE BLOOD COUNT (AUTO) 37.6 K/uL (4.3-11.0)
[2021-05-11 11:32] LABS: PLATELET COUNT (AUTO) 49 K/uL (150-450)
--- NOTE | 2021-05-11 11:50 | NUR ---
Informed PRECISION LENS GENERATOR Juan of wbc of 37.6 and per PRECISION LENS GENERATOR No new orders. No fever noted. Will monitor.
--- NOTE | 2021-05-11 11:51 | NUR ---
AM amiodarone not given due to patient being npo. MD Marino made aware.
--- NOTE | 2021-05-11 11:53 | NUR ---
PER FAMILY DAY CARE PROVIDER Juan ID will see patient due to WBC increase.
[2021-05-11] MEDS: FLUDROCORTISONE 0.1 MG TABLET NG SCH ×3 (12:00→22:33)
[2021-05-11] MEDS: PHENYLEPHRINE 50 MG in IV NS 0.9% 245 ML IV PRN (12:21)
[2021-05-11 12:58] LABS: BAND % (MANUAL) 34 % (0.0-5.0); LYMPHOCYTES % (MANUAL) 4 % (16-48); METAMYELOCYTES % 3 % (0-0); MONOCYTES % (MANUAL) 2 % (0-11.0); MYELOCYTES % 3 % (0-0); NEUTROPHILS % (MANUAL) 54 (42-76)
[2021-05-11] MEDS ORDERED: DOSE PER PHARMACY MICAFUNGIN 1 EA XX PRN (17:30)
--- NOTE | 2021-05-11 17:50 | NUR ---
Noted with blood sugar of 57 mg/dl, iv d5 given iv push. will recheck in 60 mins
[2021-05-11] MEDS: BLOOD SUGAR DIAGNOSTIC 1 EACH STRIP IN SCH ×2 (17:54→23:55)
[2021-05-11] MEDS: DEXTROSE 50%-WATER 50 ML DISP.SYRIN IV PRN (17:58)
[2021-05-11] MEDS ORDERED: MEROPENEM 1 G in IV NS 0.9% 100 ML IV SCH (18:00)
[2021-05-11] MEDS ORDERED: VANCOMYCIN POST DIALYSIS 500MG IV PRN ×2 (18:00)
[2021-05-11] MEDS ORDERED: VANCOMYCIN 1 GM in IV D5W 250ml IV ONE (18:00)
--- NOTE | 2021-05-11 18:22 | NUR ---
Son in law came to visit and stated that the patient is missing her ipad. Stuntman tried looking for it but unable to find it in the room. Unable to find belonging list in the chart. Rechecked with another staff member. Family member took her cell phone and glasses with him. Automatic Pinsetter Mechanic made aware.
--- NOTE | 2021-05-11 18:24 | NUR ---
Blood cultures drawn and iv abx started.
--- NOTE | 2021-05-11 19:36 | NUR ---
SHOWCASE MAKER CLOSING NOTES Patient noted with improvement later in the shift. On bipap with 02 of 98%. Left upper arm picc line running levo at 1 mcg/kg/min and genia at 1.2 mcg. Patient able to move her arms and legs but noted with severe weakness. Able to open her eyes to verbal stimuli. HOB kept elevated.Will continue to monitor.Endorsed to next shift to monitor glucose. Patient's end of shift glucose 108mg/dl
[2021-05-11] MEDS ORDERED: MICAFUNGIN SODIUM 100 MG in IV NS 0.9% 100 ML IV SCH (20:00)
--- NOTE | 2021-05-11 20:30 | NUR ---
ICU/SCHOOL CHILDCARE ATTENDANT CEDARS CALLED FOR UPDATE ON PT'S STATUS. NOTIFED THEN PT IS CURRENTLY ON 2X PRESSORS OF SARAH AND LEVO. CURRENTLY LEVO IS MAXED OUT. SAID THAT THERE IS NO ICU BED AVAILABLE FOR THIS PT AND WILL CALL AGAIN IN THE MORNING.
--- NOTE | 2021-05-11 21:00 | NUR ---
ICU/DESIGN MANAGER LACTIC ACID REFLEX CAME BACK AT 4.0, CALLED THE PRIMARY MUTUAL FUND ANALYST, JUAN C SAID TO REPEART THE LACTIC IN THE MORNING. ID WHO WAS MUTUAL FUND ANALYST FOR SHELUB, WHICH WAS DR GILL SAID OK, NO NEW ORDERS RECIEVED AT THIS TIME.
[2021-05-11 21:19] LABS: BILIRUBIN,DIRECT 0.9 mg/dL (0.0-0.2)
--- NOTE | 2021-05-11 21:45 | NUR ---
ICU/OIL PLANT OPERATOR RESPIRATORY WAS NOTIFED ABOUT A SPUTUM CULTURE WHICH NEEDED TO BE COLLECTED. THIS WAS DONE AND SENT TO LAB.
[2021-05-11] MEDS: FAMOTIDINE (20 MG) 20 MG TABLET PO SCH (22:00)
--- NOTE | 2021-05-11 22:21 | NUR ---
ICU/LOCKS TENDER UNABLE TO GIVE PO MEDICATION OF PEPCID AND BICITRA SOLU. DUE TO THE FACT PT IS CURRENTLY ON BIPAP AND LETHARGIC. THERE IS A REAL POSSIBILITY OF ASPIRATION GIVEN THESE FACTORS. Addendum: 05/11/21 at 2223 by LEE DUFFYN WILL TRY TO GET MEDICATIONS CHANGED OVER TO IV INSTEAD OF PO.
--- NOTE | 2021-05-11 22:33 | NUR ---
ICU/ARMOR SENIOR SERGEANT PT IS UNABLE TO TAKE HER 2400 MEDICATION OF FLORINEF DUE TO HER BEING LETHARGIC AND THE POSSIBILITY OF ASPIRATION.
[2021-05-12] VITALS (29 sets, daily range): BP systolic 53–126; BP diastolic 32–91
[2021-05-12] MEDS: PHENYLEPHRINE 50 MG in IV NS 0.9% 245 ML IV PRN (00:20)
[2021-05-12] MEDS: NOREPINEPHRINE 32 MG in IV NS 0.9% 218 ML IV PRN (02:37)
[2021-05-12] MEDS: DEXTROSE 50%-WATER 50 ML DISP.SYRIN IV PRN (04:32)
[2021-05-12 05:13] LABS: BASOPHILS # (AUTO) 0.1 K/uL (0.0-0.2); BASOPHILS % (AUTO) 0.1 % (0.0-2.0); EOSINOPHILS % (AUTO) 0.3 % (0.0-6.0); HEMATOCRIT 26 % (33-45); HEMOGLOBIN 7.7 g/dL (11.5-14.8); LYMPHOCYTES # (AUTO) 0.4 K/uL (0.8-4.8); LYMPHOCYTES % (AUTO) 0.7 % (20.0-44.0); MEAN CORPUSCULAR HGB CONC 29 g/dl (31.0-36.0); MEAN CORPUSCULAR VOLUME 95 fL (82-100); MONOCYTES # (AUTO) 0.6 K/uL (0.1-1.30); MONOCYTES % (AUTO) 1.2 % (2.0-12.0); NEUTROPHILS # (AUTO) 51.3 K/uL (1.8-8.9); NEUTROPHILS % (AUTO) 97.7 % (43.0-81.0); RED BLOOD CELL COUNT(AUTO) 2.74 MIL/uL (4.0-5.2)
--- NOTE | 2021-05-12 05:15 | NUR ---
ICU/TRAVELING CLERK PT BECAME LETHARGIC AFTER BATH. BLOOD SUGAR WAS CHECKED WAS LOW, THEN RECHECKED STILL READ LOW. CHARGE NURSE GAVE D50% THEN RECHECKED SUGAR CAME UP TO 105. WILL CONTINUE TO MONITOR THIS PT.
[2021-05-12] MEDS: HYDROCORTISONE SOD SUCCINATE 100 MG/2 ML VIAL IV SCH (05:29)
[2021-05-12] MEDS: FLUDROCORTISONE 0.1 MG TABLET NG SCH (05:51)
[2021-05-12] MEDS: BLOOD SUGAR DIAGNOSTIC 1 EACH STRIP IN SCH (05:51)
[2021-05-12 06:16] LABS: ABG BASE EXCESS -2.3 mmol/L; ABG OXYGEN SATURATION 96.1 % (92.0-98.5); ABG PCO2 50.8 mmHg (35.0-45.0); ABG PH 7.297 (7.350-7.450); ABG PO2 89.6 mmHg (75.0-100.0); AaDO2 137.2 mmHg; COHb 0.6 % (0.5-1.5); MetHb 0.3 % (0.0-1.5); O2Hb 95.2 % (94.0-97.0); SITE, ABG Right Radial; VENT MODE, BG BIPAP 15/5 R 16 40%
[2021-05-12 06:32] LABS: CALCIUM, SERUM 7.1 mg/dL (8.5-10.1); CARBON DIOXIDE 14 mmol/L (21-32); CHLORIDE 97 mmol/L (98-107); PHOSPHORUS 7.7 mg/dL (2.5-4.9); SODIUM SERUM 137 mmol/L (136-145); UREA NITROGEN, BLOOD 60 mg/dL (7-18)
[2021-05-12] MEDS: IV NS 0.9% 250 ML IV PRN (06:34)
[2021-05-12 06:36] LABS: PLATELET COUNT (AUTO) 48 K/uL (150-450)
[2021-05-12 06:39] LABS: POTASSIUM 6.3 mmol/L (3.5-5.1)
[2021-05-12 06:40] LABS: GLUCOSE 45 mg/dL (74-106); WHITE BLOOD COUNT (AUTO) 52.4 K/uL (4.3-11.0)
--- NOTE | 2021-05-12 06:46 | NUR ---
ICU/LAY OUT INSPECTOR CRITICAL LAB OF K-6.3, GLUCOSE-45, WBC-52.4, PLAT-48, PT SHOULD GET HD TODAY TO TAKE CARE OF THE POTASSIUM, GLUCOSE WAS DRAWN BEFORE THE DEXTROSE WAS GIVEN IV. ALSO ID DR [email or web address] IS ON THE CASE.
[2021-05-12 07:26] LABS: BAND % (MANUAL) 1 % (0.0-5.0); LYMPHOCYTES % (MANUAL) 1 % (16-48); MONOCYTES % (MANUAL) 7 % (0-11.0); NEUTROPHILS % (MANUAL) 91 (42-76)
--- NOTE | 2021-05-12 07:50 | NUR ---
RN OPENING NOTE RECEIVED PATIENT RESTING IN BED DNI/DNR CODE STATES. PN BI PAP 15/4, RATE 16, FIO2 40%. NPO DUE TO ASPIRATION RISK. IV ACCESS OLIVIER PICC AND RT CHEST WALL HD CATH CURRENTLY RUNNING SARAH AT 1.2 MCG AND LEVOPHED 1MCG. PATIENT ON BILATERAL SOFT WRIST RESTRAINTS RENEWED 0500. SAFETY MEASURES IN PALACE, BED LOCKED IN THE LOWEST POSITION, CALL LIGHT WITHIN REACH.
[2021-05-12] MEDS: CALCIUM ACETATE 667 MG CAP/TAB PO SCH (08:00)
--- NOTE | 2021-05-12 08:27 | NUR ---
RN NOTE PATIENTS NORSYNEPHRINE INCREASED TO 3MCG/KG/MIN, MAX LIMIT. INFORMED DR VALDEZ REGARDING PATIENT CONDITION MAX REACHED ON LEVOPHED AND NORSYNEPHRINE. AWAITING RESPONSE.
[2021-05-12] MEDS: GABAPENTIN 100 MG CAPSULE PO SCH (08:38)
[2021-05-12] MEDS: CITRIC ACID/SODIUM CITRATE (BICITRA)15 ML UDC PO SCH (08:38)
[2021-05-12] MEDS: AMIODARONE HCL 200 MG TABLET PO SCH (08:38)
[2021-05-12] MEDS: PANTOPRAZOLE 40 MG VIAL IV SCH (08:39)
[2021-05-12] MEDS: THERAHONEY GEL 1.5 OZ TUBE TP SCH (08:41)
--- NOTE | 2021-05-12 09:10 | NUR ---
RN NOTE PATIENT MONITOR READING ASYSTOLIC, INFORMED DR HERRERA.
--- NOTE | 2021-05-12 09:10 | NUR ---
PATIENT ASYTOLE ON MONITOR. NO PALPABLE PULSES. NO SPONTANEOUS BREATHING. PUPILS FIXED AND DILATED. PRONOUNCED.
--- NOTE | 2021-05-12 09:15 | NUR ---
LEFT MESSAGE TO DAUGHTER EMILIE TO CALL BACK.
--- NOTE | 2021-05-12 09:17 | NUR ---
ATTEMPT TO REACH SON DENISHA-UNABLE TO REACH AND LEAVE MESSAGE.
--- NOTE | 2021-05-12 09:30 | NUR ---
RECEIVED CALL FROM DENISHA PETTY-SON. INFORMED OF PATIENT . NO MORTUARY ARRANGEMENT AT THIS TIME. OKAYED TO BRING REMAINS TO [facility] AT THIS TIME.
--- NOTE | 2021-05-12 09:40 | NUR ---
RN NOTE RECEIVED CALL BACK FORM DAUGHTER EMILIE, INFORMED OF PATIENTS . PER DAUGHTER SHE WILL NOT BE COMING TO SEE BODY.
--- NOTE | 2021-05-12 09:45 | NUR ---
RN NOTE CALLED [facility], TO REPORT , SPOKE WITH RANI /[id number]. RECEIVED OKAY TO RELEASE BODY.
--- NOTE | 2021-05-12 10:30 | NUR ---
RN NOTE PATIENT PICKED UP BY SECURITY, TAKEN TO MIGUEL A.
== END 2021-05-12 21:42 | DRG 242 ==
LOC: ER 13:38 → TELE1 16:54 → ICU 03-26 11:11 → TELE 04-11 10:52 → MED 04-13 11:36 → ICU 04-14 08:38 → MED 04-22 19:54 → TELE 04-22 20:10 → ICU 04-24 08:42 → TELE 04-26 14:15 → MED 04-28 10:37 → ICU 05-01 10:28
PROVIDERS: ADMIT Nurse Practitioner Acute Care; ATTEND Nurse Practitioner Acute Care
PROC: 5A1D70Z Performance of Urinary Filtration, Intermittent, Less than 6 Hours Per Day (ICD-10-PCS; 2021-03-24)
PROC: 02HV33Z Insertion of Infusion Device into Superior Vena Cava, Percutaneous Approach (ICD-10-PCS; principal; 2021-03-26)
PROC: B548ZZA Ultrasonography of Superior Vena Cava, Guidance (ICD-10-PCS; 2021-03-26)
PROC: 30233N1 Transfusion of Nonautologous Red Blood Cells into Peripheral Vein, Percutaneous Approach (ICD-10-PCS; 2021-03-28)
PROC: 0JHD3XZ Insertion of Tunneled Vascular Access Device into Right Upper Arm Subcutaneous Tissue and Fascia, Percutaneous Approach (ICD-10-PCS; 2021-03-30)
PROC: 05HM33Z Insertion of Infusion Device into Right Internal Jugular Vein, Percutaneous Approach (ICD-10-PCS; 2021-03-30)
PROC: B543ZZA Ultrasonography of Right Jugular Veins, Guidance (ICD-10-PCS; 2021-03-30)
PROC: 5A09357 Assistance with Respiratory Ventilation, Less than 24 Consecutive Hours, Continuous Positive Airway Pressure (ICD-10-PCS; 2021-04-03)
PROC: 5A09557 Assistance with Respiratory Ventilation, Greater than 96 Consecutive Hours, Continuous Positive Airway Pressure (ICD-10-PCS; 2021-04-07)
PROC: 5A09357 Assistance with Respiratory Ventilation, Less than 24 Consecutive Hours, Continuous Positive Airway Pressure (ICD-10-PCS; 2021-04-07)
PROC: 0JH606Z Insertion of Pacemaker, Dual Chamber into Chest Subcutaneous Tissue and Fascia, Open Approach (ICD-10-PCS; 2021-04-11)
PROC: 02H63JZ Insertion of Pacemaker Lead into Right Atrium, Percutaneous Approach (ICD-10-PCS; 2021-04-11)
PROC: 02HK3JZ Insertion of Pacemaker Lead into Right Ventricle, Percutaneous Approach (ICD-10-PCS; 2021-04-11)
PROC: 0BH18EZ Insertion of Endotracheal Airway into Trachea, Via Natural or Artificial Opening Endoscopic (ICD-10-PCS; 2021-04-14)
PROC: 5A1955Z Respiratory Ventilation, Greater than 96 Consecutive Hours (ICD-10-PCS; 2021-04-14)
PROC: 5A09557 Assistance with Respiratory Ventilation, Greater than 96 Consecutive Hours, Continuous Positive Airway Pressure (ICD-10-PCS; 2021-05-01)
PROC: 5A2204Z Restoration of Cardiac Rhythm, Single (ICD-10-PCS; 2021-05-06)
PROC: 5A1935Z Respiratory Ventilation, Less than 24 Consecutive Hours (ICD-10-PCS; 2021-05-11)
PROC: 0BH17EZ Insertion of Endotracheal Airway into Trachea, Via Natural or Artificial Opening (ICD-10-PCS; 2021-05-11)
DX: I48.91 Unspecified atrial fibrillation (principal); A41.9 Sepsis, unspecified organism; R65.21 Severe sepsis with septic shock; J96.01 Acute respiratory failure with hypoxia; I50.21 Acute systolic (congestive) heart failure; N18.6 End stage renal disease; G93.41 Metabolic encephalopathy; J96.02 Acute respiratory failure with hypercapnia; I21.A1 Myocardial infarction type 2; D68.59 Other primary thrombophilia; E87.1 Hypo-osmolality and hyponatremia; J90 Pleural effusion, not elsewhere classified; E44.0 Moderate protein-calorie malnutrition; E87.4 Mixed disorder of acid-base balance; I13.2 Hypertensive heart and chronic kidney disease with heart failure and with stage 5 chronic kidney disease, or end stage renal disease; N39.0 Urinary tract infection, site not specified; J98.11 Atelectasis; G93.1 Anoxic brain damage, not elsewhere classified; Z66 Do not resuscitate; R57.0 Cardiogenic shock; I48.92 Unspecified atrial flutter; Z79.01 Long term (current) use of anticoagulants; Z99.2 Dependence on renal dialysis; I95.3 Hypotension of hemodialysis; D50.9 Iron deficiency anemia, unspecified; D63.8 Anemia in other chronic diseases classified elsewhere; E83.51 Hypocalcemia; Z20.822 Contact with and (suspected) exposure to COVID-19; D89.89 Other specified disorders involving the immune mechanism, not elsewhere classified; Z88.5 Allergy status to narcotic agent; Z88.0 Allergy status to penicillin; Z88.8 Allergy status to other drugs, medicaments and biological substances; Z91.041 Radiographic dye allergy status; Z79.51 Long term (current) use of inhaled steroids; Z79.899 Other long term (current) drug therapy; E78.5 Hyperlipidemia, unspecified; E87.5 Hyperkalemia; E11.40 Type 2 diabetes mellitus with diabetic neuropathy, unspecified; R74.01 Elevation of levels of liver transaminase levels; D32.9 Benign neoplasm of meninges, unspecified; E83.39 Other disorders of phosphorus metabolism; E86.1 Hypovolemia; N25.0 Renal osteodystrophy; I25.5 Ischemic cardiomyopathy; G62.9 Polyneuropathy, unspecified; G40.909 Epilepsy, unspecified, not intractable, without status epilepticus; E88.09 Other disorders of plasma-protein metabolism, not elsewhere classified; I27.20 Pulmonary hypertension, unspecified; I70.0 Atherosclerosis of aorta; K21.9 Gastro-esophageal reflux disease without esophagitis; M89.9 Disorder of bone, unspecified; R13.10 Dysphagia, unspecified; B96.1 Klebsiella pneumoniae [K. pneumoniae] as the cause of diseases classified elsewhere; I35.0 Nonrheumatic aortic (valve) stenosis; L89.152 Pressure ulcer of sacral region, stage 2; T17.928A Food in respiratory tract, part unspecified causing other injury, initial encounter; X58.XXXA Exposure to other specified factors, initial encounter; Y92.89 Other specified places as the place of occurrence of the external cause
CPT/HCPCS: 31720; 36415; 36569; 36600; 70450-TC; 71045-TC; 71250-TC; 80048-TC; 80053-TC; 80061-TC; 80076-TC; 80202-TC; 81001; 82248-TC; 82533; 82803-TC; 82947-TC; 82962-TC; 83540-TC; 83605-TC; 83735-TC; 83880; 84100-TC; 84484-TC; 85025-TC; 85027-TC; 85610-TC; 85730-TC; 86706; 86850-TC; 87040-TC; 87070-TC; 87081-TC; 87086-TC; 87186-TC; 87340; 90935-TC; 92526; 92611-TC; 93307-TC; 94002-TC; 94003-TC; 94640-TC; 94660; 94760-TC; 94799-TC; 95819-TC; 97112-TC; 97116-TC; 97530-TC; 99082-TC; A4216; A4217; A4565; A6253; A6403; C1721; C1750; C1757; C1769; C1894; C9113; C9803; G0378; J0153; J0171; J0282; J0696; J0885; J1160; J1250; J1644; J1720; J1756; J1953; J1956; J2001; J2060; J2185; J2248; J2370; J2405; J2916; J2997; J3010; J3370; J3490; J7030; J7040; J7042; J7050; J7060; P9016; P9047; Q9966; U0003